=== PATIENT | male | born 1945 | race Caucasian/White ===

== ENCOUNTER 2020-03-27 07:29 | Day surgery (SDC) | payer MEDICARE, OTHER, SELFPAY ==
--- NOTE | 2020-03-24 13:43 | HO.ANESPROP2 ---
HPI - Anesthesia Eval Consult details Narrative: 74yo M for Cardioversion: a flutter PMFSH Past Medical History Medical History (Updated 03/27/20 @ 10:22 by Mark Knight MD) Ascending aorta dilatation Atrial flutter by electrocardiogram BPH (benign prostatic hyperplasia) GERD (gastroesophageal reflux disease) HTN (hypertension) Nasal polyps TIA (transient ischemic attack) Surgical History Surgical History H/O colonoscopy H/O umbilical hernia repair S/P inguinal hernia repair Social History Social History Smoking Status: Never smoker Use of substances other than those prescribed or required for medical reasons: No Advance Directives: No Advance Directives Information Provided: Yes Meds Allergies Allergy/AdvReac Type Severity Reaction Status Date / Time PCN Allergy Unknown rash Uncoded 11/30/19 00:00 Home Medications Medication Instructions Recorded Confirmed Type Eliquis 1 tab PO BID 03/27/20 03/27/20 History atorvastatin 1 tab PO DAILY 03/27/20 03/27/20 History lisinopril 1 tab PO DAILY 03/27/20 03/27/20 History omeprazole 1 cap PO DAILY 03/27/20 03/27/20 History tamsulosin 2 cap PO DAILY 03/27/20 03/27/20 History Exam Exam Date and Time: March 24, 2020 1343 Pertinent Lab Results Pertinent Lab Results: Laboratory Tests 10/18/19 01/04/20 10:44 10:17 WBC 5.5 Hgb 15.2 Hct 44.6 Plt Count 173 Sodium 142 Potassium 4.4 Chloride 109 H BUN 14 Creatinine 0.81 Narrative Narrative: EKG aflutter, variable block, 73/min ECHO: nml LVEF 55-60%, no signif valve path, mild dilation of asc aorta @ 4.0cm, Holter: aflutter with avg rate of 70/min MIBI: no definitive evidence of ischemia or infarction CTA brain: 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
[2020-03-27] VITALS (7 sets, daily range): BP systolic 104–137; BP diastolic 66–94; PULSE 46–69; RESP 16–18; TEMP 36.1–36.5; O2SAT 96–99; BMI 32.1
--- NOTE | 2020-03-27 | ECG_ITS ---
Test Reason : POST CARDIOVERSION Blood Pressure : / mmHG Vent. Rate : 050 BPM Atrial Rate : 050 BPM P-R Int : 200 ms QRS Dur : 098 ms QT Int : 444 ms P-R-T Axes : 033 003 020 degrees QTc Int : 404 ms Sinus bradycardia Possible Left atrial enlargement Borderline ECG When compared with ECG of 29-JUN-2019 12:48, Sinus bradycardia has replaced aflutter Heart rate has decreased Referred By: Mark Knight Electronically Signed By:JAUN BARNES MD
--- NOTE | 2020-03-27 08:19 | MHC.SHP ---
Pre-Procedural Eval Section A Changes since office visit: No Cold of Flu in the past 2 weeks, No New Medical Problems, No Changes in Medication and No Patient answered all questions The History & Physical has been completed within 30 days and I have reviewed it.: Yes Section B Chief Complaint: TYPICAL FLUTTER Allergies: Allergies Allergy/AdvReac Type Severity Reaction Status Date / Time PCN Allergy Unknown rash Uncoded 11/30/19 00:00 Plan Diagnosis/Plan: Unchanged Patient has been examined and remains a candidate for the planned procedure
[2020-03-27] MEDS: Lactated Ringers 1,000 ML 100 ML IVCONT (08:31)
--- NOTE | 2020-03-27 08:53 | MHC.SHP ---
Pre-Procedural Eval Section A The patient is an INPATIENT: No Changes since office visit: No Cold of Flu in the past 2 weeks, No New Medical Problems, No Changes in Medication and No Patient answered all questions The History & Physical has been completed within 30 days and I have reviewed it.: Yes Section B Chief Complaint: TYPICAL FLUTTER Allergies: Allergies Allergy/AdvReac Type Severity Reaction Status Date / Time PCN Allergy Unknown rash Uncoded 11/30/19 00:00 Plan Patient has been examined and remains a candidate for the planned procedure
[2020-03-27] MEDS: Apixaban 5 MG TABLET PO (09:11)
--- NOTE | 2020-03-27 09:18 | P.CONAN_ITS ---
[facility] Past Medical History Medical History Ascending aorta dilatation Atrial flutter BPH (benign prostatic hyperplasia) GERD (gastroesophageal reflux disease) HTN (hypertension) Nasal polyps TIA (transient ischemic attack) Surgical History Surgical History H/O colonoscopy H/O umbilical hernia repair S/P inguinal hernia repair Social History Social History Smoking Status: Never smoker Use of substances other than those prescribed or required for medical reasons: No Advance Directives: No Advance Directives Information Provided: Yes Meds Allergies Allergy/AdvReac Type Severity Reaction Status Date / Time PCN Allergy Unknown rash Uncoded 11/30/19 00:00 Home Medications Medication Instructions Recorded Confirmed Type apixaban [Eliquis] 1 tab PO BID 03/27/20 03/27/20 History atorvastatin 1 tab PO DAILY 03/27/20 03/27/20 History lisinopril 1 tab PO DAILY 03/27/20 03/27/20 History metoprolol succinate 1 tab PO DAILY 03/27/20 03/27/20 History omeprazole 1 cap PO DAILY 03/27/20 03/27/20 History tamsulosin 2 cap PO DAILY 03/27/20 03/27/20 History Exam Exam Date and Time: March 27, 2020917 Height,Weight and Vital Signs: Height 5 ft 11 in Weight 104.326 kg Last Vital Signs Temp 97.7 F 03/27/20 08:02 Pulse 61 03/27/20 08:02 Resp 18 03/27/20 08:02 BP 137/94 H 03/27/20 08:02 Pulse Ox 98 03/27/20 08:02 Airway Mallampati Class: II TM Dist: >3cm Neck ROM: Full Heart: RarR Lungs: CTA
--- NOTE | 2020-03-27 09:44 | HO.CARDIVERS ---
Cardioversion Procedure Note Cardioversion Date of Procedure: 03/27/2020 Ordering Provider: Dr. Knight Performing Provider: Dr. Knight Indication for Procedure: Preoperative diagnose-atrial flutter; postoperative diagnosis - sinus rhythm. Performed with Transesophageal Echo: No History: Atrial flutter and shortness of breath Consent: Verbal and Written consent was obtained from the patient before starting. The patient was made aware of the risk of stroke, cardiac arrest, Procedure: After consent obtained, defib pads were attached and the patient was sedated by the anesthesia team. Once adequate sedation achieved, 150 joules of synchronized shock was administered. The rhythm converted from atrial flutter to sinus rhythm. He was bradycardic in the 40s to low 50s. Complications: None Impression: Successful cardioversion from atrial flutter to sinus bradycardia. Recommendations: Hold Toprol XL due to bradycardia. We will check an EKG tomorrow in office. Continue other medications unchanged.
== END 2020-03-27 11:18 | disposition home or self-care (01) ==
PROVIDERS: PCP Internal Medicine; Visit Provider Internal Medicine
PROC: 5A2204Z Restoration of Cardiac Rhythm, Single (ICD-10-PCS; principal; 2020-03-27 09:00)
DX: I48.3 Typical atrial flutter (principal); Z79.01 Long term (current) use of anticoagulants; I10 Essential (primary) hypertension; Z79.899 Other long term (current) drug therapy; Z86.73 Personal history of transient ischemic attack (TIA), and cerebral infarction without residual deficits; Z88.0 Allergy status to penicillin
CPT/HCPCS: 92960; 93005

== ENCOUNTER → 2020-03-28 08:59 | Outpatient (BNVA) | payer MEDICARE, OTHER, SELFPAY | PROVIDERS: PCP Internal Medicine; Visit Provider Internal Medicine | DX: I48.92 Unspecified atrial flutter (principal); G47.33 Obstructive sleep apnea (adult) (pediatric) | CPT/HCPCS: 93005 ==

== ENCOUNTER → 2020-03-29 13:13 | Outpatient (REF) | payer MEDICARE, OTHER, SELFPAY ==
--- NOTE | 2020-03-30 13:47 | ECG_ITS ---
Hook-up date: 2020-03-28 09:16:00 Duration: 27:46:00 Test Indications: UNSPECIFIED ATRIAL FIBRILLATION Medications: 56193 QRS complexes 64 Ventricular ectopics which represent <1 % of total QRS comp. 1615 Supraventricular ectopics which represent 2 % of total QRS comp. * Paced QRS complexs which represent % of total QRS comp. VENTRICULAR ECTOPY 64 Isolated 0 Bigeminal Cycles 0 Couplets 0 Runs 0 Beats in Runs * Beats LONGEST at * BPM at :: -- * Beats FASTEST at * BPM at :: -- SUPRAVENTRICULAR ECTOPY 1516 Isolated 26 Couplets 7 Runs 47 Beats in Runs 15 Beats LONGEST at 149 BPM at 11:13:14 2020-03-28 15 Beats FASTEST at 149 BPM at 11:13:14 2020-03-28 HEART RATES 36 MIN at 23:23:12 2020-03-28 47 AVG 93 MAX at 09:20:19 2020-03-28 LONGEST RR 2.0640 secs at 23:08:06 2020-03-28 S-T LEVELS Channel 1 - 128 mm at 09:16:00 2020-03-28 - 128 mm at 09:16:00 2020-03-28 Channel 2 - 128 mm at 09:16:00 2020-03-28 - 128 mm at 09:16:00 2020-03-28 Channel 3 - 128 mm at 02:83:51 -- - 128 mm at 02:83:51 Basic rhythm Normal sinus rhythm No long pauses. Frequent Sinus bradycardia , 80% of time HR < 60 bpm, lowest HR of 32 bpm Frequent Premature atrial complexes No sustained Atrial fibrillation No diary submitted Referred By: Mark Knight Overread By: SILVINA SHIN MD [facility]
== END ==
LOC: HO.CARD 13:13
PROVIDERS: Visit Provider Internal Medicine
DX: I48.92 Unspecified atrial flutter (principal)
CPT/HCPCS: 93226

== ENCOUNTER 2020-04-04 07:52 | Outpatient (REF) | payer MEDICARE, OTHER, SELFPAY ==
[2020-04-04 11:18] LABS: PSA,Total (Free>4and<10) 4.71 ng/mL (0.00-4.00)
[2020-04-05 13:36] LABS: Percent Free Prostate Spec Ag 35 % (calc) (>25)
[2020-04-06 09:37] LABS: Free Prostate Spec Ag 2.2 ng/mL; Prostate Specific Ag Total 6.3 ng/mL (< OR = 4.0)
== END 2020-04-04 07:53 | disposition home or self-care (01) ==
LOC: HO.10HDL 07:52
PROVIDERS: Visit Provider Urology
DX: N40.1 Benign prostatic hyperplasia with lower urinary tract symptoms (principal); R97.20 Elevated prostate specific antigen [PSA]; Z12.5 Encounter for screening for malignant neoplasm of prostate
CPT/HCPCS: 84153

== ENCOUNTER → 2020-04-11 14:04 | Outpatient (BNVA) | payer MEDICARE, OTHER, SELFPAY | PROVIDERS: PCP Internal Medicine; Referring Provider Internal Medicine; Visit Provider Internal Medicine | DX: I48.92 Unspecified atrial flutter (principal); R00.1 Bradycardia, unspecified; Z86.73 Personal history of transient ischemic attack (TIA), and cerebral infarction without residual deficits; Z98.890 Other specified postprocedural states | CPT/HCPCS: 93005; 99212 ==

== ENCOUNTER → 2020-05-11 20:31 | Outpatient (REF) | payer MEDICARE, OTHER, SELFPAY | LOC: HO.SL 20:31 | PROVIDERS: PCP Internal Medicine; Visit Provider Internal Medicine | DX: G47.33 Obstructive sleep apnea (adult) (pediatric) (principal); I48.92 Unspecified atrial flutter | CPT/HCPCS: 95810 ==

== ENCOUNTER → 2020-05-23 10:59 | Outpatient (BNVA) | payer MEDICARE, OTHER, SELFPAY | PROVIDERS: PCP Internal Medicine; Referring Provider Internal Medicine; Visit Provider Nurse Practitioner Family | DX: Z13.89 Encounter for screening for other disorder (principal) | CPT/HCPCS: Q3014 ==

== ENCOUNTER → 2020-05-24 08:38 | Outpatient (BNVA) | payer MEDICARE, OTHER, SELFPAY | PROVIDERS: PCP Internal Medicine; Referring Provider Internal Medicine; Visit Provider Urology | DX: Z13.89 Encounter for screening for other disorder (principal) | CPT/HCPCS: Q3014 ==

== ENCOUNTER → 2020-07-18 08:24 | Outpatient (BNVA) | payer MEDICARE, OTHER, SELFPAY | PROVIDERS: PCP Internal Medicine; Visit Provider Internal Medicine | DX: I48.92 Unspecified atrial flutter (principal); R00.1 Bradycardia, unspecified; G45.9 Transient cerebral ischemic attack, unspecified; G47.33 Obstructive sleep apnea (adult) (pediatric) | CPT/HCPCS: 99212 ==

== ENCOUNTER 2020-11-22 07:51 | Outpatient (REF) | payer MEDICARE, OTHER, SELFPAY ==
[2020-11-22 10:12] LABS: MANUAL DIFF FLAG NO
[2020-11-22 10:21] LABS: Basophils Percent Auto 0.6 % (0-2); Eosinophils Absolute Auto 0.2 X10*3/uL (0.0-0.4); Eosinophils Percent Auto 4.1 % (0-4); Hematocrit 44.3 % (42-52); Hemoglobin 14.2 g/dl (14.0-18.0); Imm Gran Abs Auto 0.02 X10*3/uL (0.00-0.03); Imm Gran Pct Auto 0.4 % (0.0-0.4); Lymphocytes Absolute Auto 1.5 X10*3/uL (1.2-4.9); Lymphocytes Percent Auto 28.9 % (20-40); Mean Corpuscular HGB Conc 32.1 g/dl (31.0-36.0); Mean Corpuscular Hemoglobin 30.7 pg (27.0-33.0); Mean Corpuscular Volume 95.9 fL (80-98); Mean Platelet Volume 10.7 fL (9.4-12.4); Monocytes Absolute Auto 0.7 X10*3/uL (0.1-1.2); Monocytes Percent Auto 12.8 % (2-11); Neutrophils Absolute Auto 2.8 X10*3/uL (2.0-8.3); Neutrophils Percent Auto 53.2 % (45-73); Platelet Count 192 X10*3/uL (160-400); Red Blood Count 4.62 X10*6/uL (4.60-5.80); Red Cell Distribution Width 13.2 % (11.0-16.0); White Blood Count 5.3 X10*3/uL (4.8-10.8)
[2020-11-22 10:52] LABS: Alanine Aminotransferase 11 U/L (0-40); Albumin Level 4.1 g/dL (3.5-5.0); Alkaline Phosphatase 104 U/L (39-117); Anion Gap 13 (12-20); Aspartate Amino Transferase 16 U/L (5-37); Blood Urea Nitrogen 20 mg/dL (9-16); Calcium 9.6 mg/dL (8.4-10.2); Carbon Dioxide 23 mmol/L (22-29); Chloride 108 mmol/L (96-108); Cholesterol 117 mg/dL; Estimated Glomerular Filt Rate > 60; Glucose Fasting 103 mg/dL (60-99); HDL Cholesterol 42 mg/dL; LDL Cholesterol Calculated 58 mg/dl; Potassium 4.6 mmol/L (3.3-5.1); Sodium 139 mmol/L (135-145); Total Protein 6.8 g/dL (6.5-8.0); Triglycerides 86 mg/dL
== END 2020-11-22 07:52 | disposition home or self-care (01) ==
LOC: HO.10HDL 07:51
PROVIDERS: Visit Provider Internal Medicine
DX: I10 Essential (primary) hypertension (principal); E78.00 Pure hypercholesterolemia, unspecified; K21.9 Gastro-esophageal reflux disease without esophagitis
CPT/HCPCS: 36415; 80053; 80061; 85025

== ENCOUNTER → 2021-01-03 08:43 | Outpatient (REF) | payer MEDICARE, OTHER, SELFPAY ==
--- NOTE | 2021-01-03 11:53 | ECG_ITS ---
Hook-up date: 2021-01-03 09:01:00 Duration: 47:59:00 Test Indications: UNSPEC. ATRIAL FLUTTER Medications: 637880 QRS complexes 320 Ventricular ectopics which represent <1 % of total QRS comp. 33 Supraventricular ectopics which represent <1 % of total QRS comp. * Paced QRS complexs which represent % of total QRS comp. VENTRICULAR ECTOPY 311 Isolated 0 Bigeminal Cycles 3 Couplets 1 Runs 3 Beats in Runs 3 Beats LONGEST at 51 BPM at 07:49:24 2021-01-05 3 Beats FASTEST at 51 BPM at 07:49:24 2021-01-05 SUPRAVENTRICULAR ECTOPY 19 Isolated 2 Couplets 2 Runs 10 Beats in Runs 5 Beats LONGEST at 84 BPM at 02:27:04 2021-01-04 5 Beats FASTEST at 110 BPM at 03:33:22 2021-01-04 HEART RATES 31 MIN at 23:51:30 2021-01-03 47 AVG 102 MAX at 14:59:31 2021-01-03 LONGEST RR 2.0640 secs at 05:22:41 2021-01-04 S-T LEVELS Channel 1 - 128 mm at 09:01:00 2021-01-03 - 128 mm at 09:01:00 2021-01-03 Channel 2 - 128 mm at 09:01:00 2021-01-03 - 128 mm at 09:01:00 2021-01-03 Channel 3 - 128 mm at 02:82:01 -- - 128 mm at 02:82:01 Underlying rhythm is sinus; Average ventricular rate 47/min; range 31-102/min; Rare Premature ventricular complexes ; Rare Premature atrial complexes ; No sustained arrhythmias; Patient diary not available. Referred By: Akira Dhillon Overread By: AKIRA DHILLON
== END ==
LOC: HO.CARD 08:43
PROVIDERS: PCP Internal Medicine; Referring Provider Internal Medicine; Visit Provider Internal Medicine
DX: I48.92 Unspecified atrial flutter (principal)
CPT/HCPCS: 93226

== ENCOUNTER 2021-01-10 11:52 | Outpatient (REF) | payer MEDICARE, OTHER, SELFPAY ==
[2021-01-10 13:10] LABS: PSA,Total (Free>4and<10) 5.37 ng/mL (0.00-4.00)
[2021-01-12 11:36] LABS: Free Prostate Spec Ag 2.2 ng/mL; Percent Free Prostate Spec Ag 31 % (calc) (>25); Prostate Specific Ag Total 7.1 ng/mL (< OR = 4.0)
== END 2021-01-10 11:53 | disposition home or self-care (01) ==
LOC: HO.LAB 11:52
PROVIDERS: PCP Internal Medicine; Visit Provider Urology
DX: R97.20 Elevated prostate specific antigen [PSA] (principal); N40.1 Benign prostatic hyperplasia with lower urinary tract symptoms; N13.8 Other obstructive and reflux uropathy; Z12.5 Encounter for screening for malignant neoplasm of prostate
CPT/HCPCS: 36415; 84153; 84154

== ENCOUNTER → 2021-01-22 08:30 | Outpatient (BNVA) | payer MEDICARE, OTHER, SELFPAY | PROVIDERS: PCP Internal Medicine; Referring Provider Internal Medicine; Visit Provider Internal Medicine | DX: I48.92 Unspecified atrial flutter (principal); R00.1 Bradycardia, unspecified; G47.33 Obstructive sleep apnea (adult) (pediatric); Z86.73 Personal history of transient ischemic attack (TIA), and cerebral infarction without residual deficits; Z79.01 Long term (current) use of anticoagulants | CPT/HCPCS: 99212 ==

== ENCOUNTER → 2021-01-24 13:51 | Outpatient (BNVA) | payer MEDICARE, OTHER, SELFPAY | PROVIDERS: Visit Provider Urology | DX: Z13.89 Encounter for screening for other disorder (principal) | CPT/HCPCS: Q3014 ==

== ENCOUNTER 2021-02-05 11:39 | Emergency (ER) | payer MEDICARE, OTHER, SELFPAY ==
--- NOTE | ~2021-02-05 | CT_ITS ---
EXAMINATION: CT ABDOMEN AND PELVIS WITHOUT CONTRAST CLINICAL INFORMATION: Retention. Flank pain. COMPARISON: None TECHNIQUE: Multidetector volumetric imaging was performed from the superior aspect of the liver through the pubic symphysis. Sagittal and coronal reformatted images were obtained on the technologist's workstation. This CT examination was performed using dose optimization techniques as appropriate, variously including the following: *Automated exposure control *Adjustment of mA and/or kV according to patient size (this includes techniques or standardized protocols for targeted exams where dose is matched to indication/reason for exam; i.e. extremities or head) *Use of iterative reconstruction technique DLP: 795 mGy-cm FINDINGS: LUNG BASES: The visualized lung bases are unremarkable. LIVER, GALLBLADDER, AND BILIARY TREE: The liver is normal in size, shape, and attenuation. No focal hepatic lesion or biliary ductal dilatation is present. The gallbladder is unremarkable with no evidence of radiopaque gallstones, gallbladder wall thickening, or obvious pericholecystic inflammatory changes. PANCREAS: Unremarkable. SPLEEN: Unremarkable. ADRENAL GLANDS: Unremarkable. KIDNEYS AND URETERS: The kidneys are normal in size, shape, and attenuation. No hydronephrosis, hydroureter, or calculi seen. No perinephric stranding. BLADDER: The prostate gland is enlarged and protrudes into the base of the bladder. There is a Fisher catheter in the bladder. The bladder is empty. GASTROINTESTINAL TRACT: There is diverticulosis of the colon. Small and large bowel is otherwise unremarkable. The appendix is unremarkable. ABDOMINAL WALL: There is evidence of previous umbilical hernia repair with mesh. May be a small right inguinal hernia containing fat. LYMPH NODES: Normal. VASCULAR: There is evidence of atherosclerotic disease. PELVIC VISCERA: Prostate gland is enlarged and protrudes into the base of the bladder. Prostate gland measures 7 cm in AP and transverse dimension. OSSEOUS STRUCTURES: There are degenerative changes of the spine. CT/CT abdomen pelvis wo con IMPRESSION: No renal stone or hydronephrosis. Enlarged prostate gland that protrudes into the base of the bladder. Fisher catheter in the bladder. The bladder is empty.
[2021-02-05 11:56] VITALS: BP 197/122; PULSE 82; RESP 24; TEMP 36.8; O2SAT 98; BMI 31.5
--- NOTE | 2021-02-05 12:30 | ED.MALEGU ---
HPI - Male Genitourinary General Chief complaint: Urogenital-Male Stated complaint: URINATING ISSUES Time Seen by Provider: 02/05/21 12:27 Source: patient Mode of arrival: ambulatory Limitations: no limitations History of Present Illness Complaint: other (urinary retention) Onset (ago): day(s) (last night) Duration: constant Location: abdomen (suprapubic) Severity: moderate Quality: aching Relieving factors: none Exacerbating factors: none Context: other (hx of BPD unable to void has never had a catheter before) Associated symptoms: Reports other (flank pain) Related Data Home Medications Medication Instructions Recorded Confirmed apixaban 5 mg tablet (Eliquis) 5 mg PO BID 04/11/20 01/24/21 atorvastatin 20 mg tablet 20 mg PO DAILY 04/11/20 01/24/21 lisinopril 20 mg tablet 20 mg PO DAILY 04/11/20 01/24/21 omeprazole 20 mg capsule,delayed 20 mg PO DAILY 04/11/20 01/24/21 release tamsulosin 0.4 mg capsule 0.8 mg PO DAILY 04/11/20 01/24/21 Previous Rx's Medication Instructions Recorded finasteride 5 mg tablet 5 mg PO DAILY 90 Days #90 tab 01/24/21 nitrofurantoin 100 mg PO BID 3 Days #6 cap 02/05/21 monohydrate/macrocrystals 100 mg capsule (Macrobid) Allergies Allergy/AdvReac Type Severity Reaction Status Date / Time Penicillins Allergy Mild RASH Verified 01/24/21 13:52 Review of Systems Review of Systems: Constitutional : No Weight loss, No Fever, No Chills ENT/Mouth : No sore throat, No Rhinorrhea Eyes: No Swelling, No Redness Cardiovascular : No Chest Pain, No SOB, NoEdema Respiratory : No Cough, No Sputum, No Wheezing Gastrointestinal : no Nausea, no Vomiting, no Diarrhea, positive abdominal Pain, No Hematochezia, No Melena Genitourinary : No Dysuria, No Urinary Frequency, No Hematuria, No Urgency, pos retention Musculoskeletal : No joint pain, No Myalgias, No Joint Swelling Skin : No Skin Lesions, No rash Neuro : No Weakness, No Numbness, No Dizziness, No Headache Psych : No Anxiety/Panic, No Depression Heme/Lymph: No Bruising, No Lymphadenopathy Endocrine : No Polyuria, No Polydipsia All other systems reviewed and are negative. [facility] Past Medical History Attestation statement: The following information was validated with the patient. Medical History Ascending aorta dilatation BPH (benign prostatic hyperplasia) BPH with obstruction/lower urinary tract symptoms Elevated PSA GERD (gastroesophageal reflux disease) HTN (hypertension) Nasal polyps Paroxysmal atrial flutter Sinus bradycardia TIA (transient ischemic attack) Surgical History H/O colonoscopy H/O umbilical hernia repair S/P inguinal hernia repair Family History Family History Father Cardiovascular disease Mother No problems noted. Social History Social History Alcohol intake: never Patient Tobacco Use Status: Never used Tobacco Use of substances other than those prescribed or required for medical reasons: No Advance Directives: Yes Advance Directives Information Provided: Yes Advance Directives on File: No Physical Exam Vital Signs: Vital Signs: Last Vital Signs Temp 98.3 F 02/05/21 12:38 Pulse 49 L 02/05/21 14:33 Resp 16 02/05/21 14:33 BP 136/68 02/05/21 14:33 Pulse Ox 96 02/05/21 14:33 Body Mass Index 31.5 Appearance: Alert. Oriented X3. No acute distress. PATIENT HAD A CATHETER PLACED BY RN ON IMMEDIATE ARRIVAL TO THE ED SO HE DRASTICALLY IMPROVED Eyes: Pupils equal, round and reactive to light. ENT: Pharynx normal. Neck: Normal inspection. Neck supple. CVS: Normal heart rate and rhythm. Pulses normal. Respiratory: No respiratory distress. Breath sounds normal. Abdomen: Soft and nontender. Back: mild L CVA ttp Skin: Skin warm and dry. Normal skin color. Normal skin turgor. Extremities: No lower extremity edema. No calf ttp Neuro: Oriented X 3. No motor deficit. No sensory deficit. Course Course Course Narrative: labs stable at this time can be DC with carol carson macrobid MDM - Male Genitourinary MDM Narrative Medical decision making narrative: 75 yo male with MARÍA, BPH, aflutter on eliquis here with retention since last night - at this time carson, UA, labs, CT scan for mass/renal colic. Dispo per results and findings. Lab Data Result diagrams: 02/05/21 14:28 02/05/21 14:28 Labs: Lab Results 02/05/21 02/05/21 02/05/21 Range/Units 14:28 14:28 14:28 WBC 7.4 (4.8-10.8) X10*3/uL RBC 4.28 L (4.60-5.80) X10*6/uL Hgb 13.5 L (14.0-18.0) g/dl Hct 40.1 L (42-52) % MCV 93.7 (80-98) fL MCH 31.5 (27.0-33.0) pg MCHC 33.7 (31.0-36.0) g/dl RDW 12.9 (11.0-16.0) % Plt Count 145 L (160-400) X10*3/uL MPV 10.2 (9.4-12.4) fL Immature Gran % (Auto) 0.4 (0.0-0.4) % Neut % (Auto) 85.7 H (45-73) % Lymph % (Auto) 6.6 L (20-40) % Rock % (Auto) 7.1 (2-11) % Eos % (Auto) 0.1 (0-4) % Baso % (Auto) 0.1 (0-2) % Lymph # (Auto) 0.5 L (1.2-4.9) X10*3/uL Rock # (Auto) 0.5 (0.1-1.2) X10*3/uL Eos # (Auto) 0.0 (0.0-0.4) X10*3/uL Baso # (Auto) 0.0 (0.0-0.2) X10*3/uL Abs Immat Gran (auto) 0.03 (0.00-0.03) X10*3/uL Absolute Neuts (auto) 6.3 (2.0-8.3) X10*3/uL Absolute Nucleated RBC 0.000 (0.0-0.012) X10*3/uL Nucleated RBC % (auto) 0.0 (0.0-0.2) /100WBC Sodium 143 (135-145) mmol/L Potassium 3.8 (3.3-5.1) mmol/L Chloride 113 H (96-108) mmol/L Carbon Dioxide 22 (22-29) mmol/L Anion Gap 12 (12-20) BUN 13 (9-16) mg/dL Creatinine 0.74 (0.5-1.4) mg/dL Estim Creat Clear Calc 108.3 Estimated GFR > 60 Random Glucose 101 (60-115) mg/dL Calcium 9.4 (8.4-10.2) mg/dL Magnesium 1.9 (1.6-2.6) mg/dL Total Bilirubin 0.7 (0.0-1.0) mg/dL Direct Bilirubin 0.3 (0.0-0.5) mg/dL AST 17 (5-37) U/L ALT 14 (0-40) U/L Alkaline Phosphatase 98 (39-117) U/L Total Protein 6.5 (6.5-8.0) g/dL Albumin 3.9 (3.5-5.0) g/dL Urine Color YELLOW Urine Appearance HAZY Urine pH 6.0 (5.0-8.0) Ur Specific [place] 1.020 (1.005-1.025) Urine Protein NEG (NEG-TRACE) MG/DL Urine Glucose (UA) NEG (NEG) MG/DL Urine Ketones NEG (NEG) MG/DL Urine Blood 3+ H (NEG) Urine Nitrite NEG (NEG) Ur Leukocyte Esterase NEG (NEG) Urine RBC 50-75 H (0) /HPF Urine WBC 0-2 (0-4) /HPF Ur Squamous Epith Cells NONE /LPF Urine Bacteria NONE /LPF Discharge Plan Discharge Clinical Impression: Acute urinary retention, BPH with obstruction/lower urinary tract symptoms Patient Disposition: Home, Self-Care Instructions: Enlarged Prostate (BPH) (ED), Carson Catheter Placement and Care (ED) Additional Instructions: return to ED for any worsening symptoms or concerns call Dr. Martinez tomorrow regarding catheter Prescriptions: New nitrofurantoin monohyd/m-cryst [Macrobid] 100 mg capsule 100 mg PO BID 3 Days Qty: 6 RF: 0 No Action tamsulosin 0.4 mg capsule 0.8 mg PO DAILY RF: 0 omeprazole 20 mg capsule,delayed release(DR/EC) 20 mg PO DAILY RF: 0 lisinopril 20 mg tablet 20 mg PO DAILY RF: 0 atorvastatin 20 mg tablet 20 mg PO DAILY RF: 0 Eliquis 5 mg tablet 5 mg PO BID RF: 0 finasteride 5 mg tablet 5 mg PO DAILY 90 Days Qty: 90 RF: 1 Interventions: ED Discharge Assessment Last Done: 02/05/21 15:21 Discharge Date/Time: 02/05/21 15:30
--- NOTE | 2021-02-05 12:36 | PC.NURSE ---
pt from triage with severe sup[rapubic pain. HE states he has been unable to void urine today except for very small amounts. Bladder scanned pt for >800 ml urine and inserted 16 fr carson with bag to gravity. Pt states pain better. He awaits MD dias
[2021-02-05 12:38] VITALS: BP 197/122; PULSE 82; RESP 24; TEMP 36.8; O2SAT 98
[2021-02-05 14:33] VITALS: BP 136/68; PULSE 49; RESP 16; O2SAT 96
[2021-02-05 14:35] LABS: MANUAL DIFF FLAG NO
[2021-02-05 14:37] LABS: Basophils Percent Auto 0.1 % (0-2); Eosinophils Percent Auto 0.1 % (0-4); Hematocrit 40.1 % (42-52); Hemoglobin 13.5 g/dl (14.0-18.0); Imm Gran Abs Auto 0.03 X10*3/uL (0.00-0.03); Imm Gran Pct Auto 0.4 % (0.0-0.4); Lymphocytes Absolute Auto 0.5 X10*3/uL (1.2-4.9); Lymphocytes Percent Auto 6.6 % (20-40); Mean Corpuscular HGB Conc 33.7 g/dl (31.0-36.0); Mean Corpuscular Hemoglobin 31.5 pg (27.0-33.0); Mean Corpuscular Volume 93.7 fL (80-98); Mean Platelet Volume 10.2 fL (9.4-12.4); Monocytes Absolute Auto 0.5 X10*3/uL (0.1-1.2); Monocytes Percent Auto 7.1 % (2-11); Neutrophils Absolute Auto 6.3 X10*3/uL (2.0-8.3); Neutrophils Percent Auto 85.7 % (45-73); Platelet Count 145 X10*3/uL (160-400); Red Blood Count 4.28 X10*6/uL (4.60-5.80); Red Cell Distribution Width 12.9 % (11.0-16.0); White Blood Count 7.4 X10*3/uL (4.8-10.8)
[2021-02-05 14:40] LABS: Glucose Urine UA NEG (NEG); Leukocyte Esterase Urine NEG (NEG); Nitrite Urine NEG (NEG); UACC Culture Trigger NO; Urine Blood 3+ (NEG); Urine Ketones NEG (NEG); Urine Protein NEG (NEG-TRACE)
[2021-02-05 14:41] LABS: Appearance Urine HAZY; Color Urine YELLOW
[2021-02-05 14:48] LABS: RBC Urine 50-75 /HPF (0); WBC Urine 0-2 /HPF (0-4)
[2021-02-05 14:56] LABS: Alanine Aminotransferase 14 U/L (0-40); Albumin Level 3.9 g/dL (3.5-5.0); Alkaline Phosphatase 98 U/L (39-117); Anion Gap 12 (12-20); Aspartate Amino Transferase 17 U/L (5-37); Bilirubin Direct 0.3 mg/dL (0.0-0.5); Bilirubin Total 0.7 mg/dL (0.0-1.0); Blood Urea Nitrogen 13 mg/dL (9-16); Calcium 9.4 mg/dL (8.4-10.2); Carbon Dioxide 22 mmol/L (22-29); Chloride 113 mmol/L (96-108); Creatinine Clr Calc Pharmacy 108.3; Estimated Glomerular Filt Rate > 60; Glucose Random 101 mg/dL (60-115); Magnesium 1.9 mg/dL (1.6-2.6); Potassium 3.8 mmol/L (3.3-5.1); Sodium 143 mmol/L (135-145); Total Protein 6.5 g/dL (6.5-8.0)
[2021-02-05] MEDS: Nitrofurantoin Monohyd/M-Cryst 100 MG CAPSULE PO (15:19)
== END 2021-02-05 15:30 | disposition home or self-care (01) ==
PROVIDERS: Emergency Provider Emergency Medicine; PCP Internal Medicine
DX: N40.1 Benign prostatic hyperplasia with lower urinary tract symptoms (principal); R33.8 Other retention of urine; I10 Essential (primary) hypertension; I48.0 Paroxysmal atrial fibrillation
CPT/HCPCS: 36415; 51702; 74176; 80048; 80076; 81001; 83735; 85025; 99284

== ENCOUNTER 2021-02-05 21:07 | Emergency (ER) | payer MEDICARE, OTHER, SELFPAY ==
[2021-02-05 21:08] VITALS: BP 163/65; PULSE 67; RESP 16; TEMP 36.8; O2SAT 96; BMI 31.5
--- NOTE | 2021-02-05 22:36 | ED.MALEGU ---
HPI - Male Genitourinary General Chief complaint: Urogenital-Male Stated complaint: blood in urine Time Seen by Provider: 02/05/21 22:21 Source: patient Mode of arrival: ambulatory Limitations: no limitations History of Present Illness HPI Narrative: 75 y/o male with history of paroxysmal afib on Eliquis, MARÍA, BPH recently started on finasteride, HTN, GERD, TIA who presents for evaluation of new onset hematuria. He was seen in the ED this afternoon for urinary retention and a Carson was placed. He was discharged home with plan to f/u with Dr. Martinez. At home this evening he changed his leg bag at 8:30 of clear urine. He went to use the bathroom and thinks when he stood up he may have pulled on the Carson catheter. He looked down and saw dark red urine in the urine bag. He denies any pain. No fevers, lightheadedness, dizziness or chest pain. Denies visualized clots. He took his Eliquis already tonight. MD Complaint: other (hematuria) Onset (ago): hour(s) Duration: constant Severity: moderate Relieving factors: none Exacerbating factors: none Associated symptoms: Reports denies other symptoms Related Data Home Medications Medication Instructions Recorded Confirmed apixaban 5 mg tablet (Eliquis) 5 mg PO BID 04/11/20 01/24/21 atorvastatin 20 mg tablet 20 mg PO DAILY 04/11/20 01/24/21 lisinopril 20 mg tablet 20 mg PO DAILY 04/11/20 01/24/21 omeprazole 20 mg capsule,delayed 20 mg PO DAILY 04/11/20 01/24/21 release tamsulosin 0.4 mg capsule 0.8 mg PO DAILY 04/11/20 01/24/21 Previous Rx's Medication Instructions Recorded finasteride 5 mg tablet 5 mg PO DAILY 90 Days #90 tab 01/24/21 nitrofurantoin 100 mg PO BID 3 Days #6 cap 02/05/21 monohydrate/macrocrystals 100 mg capsule (Macrobid) Allergies Allergy/AdvReac Type Severity Reaction Status Date / Time Penicillins Allergy Mild RASH Verified 02/05/21 21:14 Review of Systems Review of Systems: Constitutional: No Fever, No Chills Cardiovascular: No Chest Pain, No SOB Respiratory: No Cough, No Sputum Gastrointestinal: No Nausea, No Vomiting, No Diarrhea, No abdominal Pain Genitourinary: No Dysuria, No Urinary Frequency, + Hematuria Musculoskeletal: No joint pain, No Myalgias Skin: No Skin Lesions, No rash Neuro: No Weakness, No Numbness, No Dizziness, No Headache Heme/Lymph: No Bruising, No Lymphadenopathy Endocrine: No Polyuria, No Polydipsia [facility] Past Medical History Medical History Ascending aorta dilatation BPH (benign prostatic hyperplasia) BPH with obstruction/lower urinary tract symptoms Elevated PSA GERD (gastroesophageal reflux disease) HTN (hypertension) Nasal polyps Paroxysmal atrial flutter Sinus bradycardia TIA (transient ischemic attack) Surgical History H/O colonoscopy H/O umbilical hernia repair S/P inguinal hernia repair Family History Family History Father Cardiovascular disease Mother No problems noted. Social History Social History Alcohol intake: never Patient Tobacco Use Status: Never used Tobacco Advance Directives: No Advance Directives Information Provided: No Physical Exam Vital Signs: Vital Signs: Last Vital Signs Temp 98.3 F 02/05/21 21:08 Pulse 52 02/05/21 23:25 Resp 16 02/05/21 23:25 BP 149/72 H 02/05/21 23:25 Pulse Ox 95 02/05/21 23:25 Body Mass Index 31.5 Appearance: Alert. Oriented X3. No acute distress. Eyes: Pupils equal, round and reactive to light. ENT: Pharynx normal. Neck: Normal inspection. Neck supple. CVS: Normal heart rate and rhythm. Pulses normal. Respiratory: No respiratory distress. Breath sounds normal. Abdomen: Soft and nontender. +BS x4 : uncircumzied penis, foreskin easily retractable, small amount of dried blood on his inner left thigh, no blood at meatus, cranberry juice colored urine in the carson tubing, no clots visualized. Skin: Skin warm and dry. Normal skin color. Normal skin turgor. No rashes. Extremities: No lower extremity edema. Neuro: Oriented X 3. No motor deficit. No sensory deficit. Course Course Course Narrative: 75 yo male presenting with new onset of hematuria in the setting of probable minor trauma. He is on Eliquis. Hemodynamically stable. Will flush Carson several times to get try to clear urine. Will check H/H and coags. Hold off on CBI for now. Reevaluation(s) Reevaluation #1: After irrigation there is significant improvement in his hematuria, only very light pink now. Carson bag changed. If remains stable will plan to d/c home and follow up with Dr. Martinez tomorrow. Reevaluation #2: Slight drop in H/H. No longer having significant hematuria. He is stable for d/c home with close follow up with Dr. Martinez. MDM - Male Genitourinary Lab Data Result diagrams: 02/05/21 23:31 02/05/21 23:31 Labs: Lab Results 02/05/21 02/05/21 02/05/21 Range/Units 23:31 23:31 23:31 WBC 6.3 (4.8-10.8) X10*3/uL RBC 4.11 L (4.60-5.80) X10*6/uL Hgb 12.9 L (14.0-18.0) g/dl Hct 38.6 L (42-52) % MCV 93.9 (80-98) fL MCH 31.4 (27.0-33.0) pg MCHC 33.4 (31.0-36.0) g/dl RDW 13.0 (11.0-16.0) % Plt Count 151 L (160-400) X10*3/uL MPV 9.9 (9.4-12.4) fL Immature Gran % (Auto) 0.3 (0.0-0.4) % Neut % (Auto) 70.3 (45-73) % Lymph % (Auto) 16.3 L (20-40) % Hawkins % (Auto) 12.4 H (2-11) % Eos % (Auto) 0.5 (0-4) % Baso % (Auto) 0.2 (0-2) % Lymph # (Auto) 1.0 L (1.2-4.9) X10*3/uL Hawkins # (Auto) 0.8 (0.1-1.2) X10*3/uL Eos # (Auto) 0.0 (0.0-0.4) X10*3/uL Baso # (Auto) 0.0 (0.0-0.2) X10*3/uL Abs Immat Gran (auto) 0.02 (0.00-0.03) X10*3/uL Absolute Neuts (auto) 4.4 (2.0-8.3) X10*3/uL Absolute Nucleated RBC 0.000 (0.0-0.012) X10*3/uL Nucleated RBC % (auto) 0.0 (0.0-0.2) /100WBC PT 16.0 H (9.9-13.0) SEC INR 1.4 H (0.9-1.1) APTT 35.2 (24.1-38.0) SEC Sodium 142 (135-145) mmol/L Potassium 3.4 (3.3-5.1) mmol/L Chloride 112 H (96-108) mmol/L Carbon Dioxide 24 (22-29) mmol/L Anion Gap 9 L (12-20) BUN 15 (9-16) mg/dL Creatinine 0.82 (0.5-1.4) mg/dL Estim Creat Clear Calc 97.8 Estimated GFR > 60 Random Glucose 110 (60-115) mg/dL Calcium 9.0 (8.4-10.2) mg/dL Discharge Plan Discharge Clinical Impression: Hematuria Qualifiers: Hematuria type: unspecified type Qualified Code(s): R31.9 - Hematuria, unspecified Patient Disposition: Home, Self-Care Instructions: Hematuria (ED) Additional Instructions: Follow up with Dr. Martinez tomorrow. If you develop new or worsening symptoms call 911 or come back to the ER for further evaluation. Prescriptions: No Action nitrofurantoin monohyd/m-cryst [Macrobid] 100 mg capsule 100 mg PO BID 3 Days Qty: 6 RF: 0 tamsulosin 0.4 mg capsule 0.8 mg PO DAILY RF: 0 omeprazole 20 mg capsule,delayed release(DR/EC) 20 mg PO DAILY RF: 0 lisinopril 20 mg tablet 20 mg PO DAILY RF: 0 atorvastatin 20 mg tablet 20 mg PO DAILY RF: 0 Eliquis 5 mg tablet 5 mg PO BID RF: 0 finasteride 5 mg tablet 5 mg PO DAILY 90 Days Qty: 90 RF: 1 Referrals: Jamal Martinez MD [Physician] - 1 day
[2021-02-05 23:25] VITALS: BP 149/72; PULSE 52; RESP 16; O2SAT 95
[2021-02-05 23:35] LABS: Basophils Percent Auto 0.2 % (0-2); Eosinophils Percent Auto 0.5 % (0-4); Hematocrit 38.6 % (42-52); Hemoglobin 12.9 g/dl (14.0-18.0); Imm Gran Abs Auto 0.02 X10*3/uL (0.00-0.03); Imm Gran Pct Auto 0.3 % (0.0-0.4); Lymphocytes Percent Auto 16.3 % (20-40); MANUAL DIFF FLAG NO; Mean Corpuscular HGB Conc 33.4 g/dl (31.0-36.0); Mean Corpuscular Hemoglobin 31.4 pg (27.0-33.0); Mean Corpuscular Volume 93.9 fL (80-98); Mean Platelet Volume 9.9 fL (9.4-12.4); Monocytes Absolute Auto 0.8 X10*3/uL (0.1-1.2); Monocytes Percent Auto 12.4 % (2-11); Neutrophils Absolute Auto 4.4 X10*3/uL (2.0-8.3); Neutrophils Percent Auto 70.3 % (45-73); Platelet Count 151 X10*3/uL (160-400); Red Blood Count 4.11 X10*6/uL (4.60-5.80); White Blood Count 6.3 X10*3/uL (4.8-10.8)
[2021-02-05 23:40] LABS: INTERNATIONAL NORM RATIO 1.4 (0.9-1.1)
[2021-02-05 23:43] LABS: Partial Thromboplastin Time 35.2 SEC (24.1-38.0)
[2021-02-05 23:54] LABS: Anion Gap 9 (12-20); Blood Urea Nitrogen 15 mg/dL (9-16); Carbon Dioxide 24 mmol/L (22-29); Chloride 112 mmol/L (96-108); Creatinine Clr Calc Pharmacy 97.8; Estimated Glomerular Filt Rate > 60; Glucose Random 110 mg/dL (60-115); Potassium 3.4 mmol/L (3.3-5.1); Sodium 142 mmol/L (135-145)
== END 2021-02-06 00:58 | disposition home or self-care (01) ==
PROVIDERS: Physician Assistant; Emergency Provider Emergency Medicine; PCP Internal Medicine
DX: T83.83XA Hemorrhage due to genitourinary prosthetic devices, implants and grafts, initial encounter (principal); Z96.0 Presence of urogenital implants; I10 Essential (primary) hypertension; I48.0 Paroxysmal atrial fibrillation; Z79.01 Long term (current) use of anticoagulants; Z86.73 Personal history of transient ischemic attack (TIA), and cerebral infarction without residual deficits
CPT/HCPCS: 36415; 51702; 74176; 80048; 80076; 81001; 83735; 85025; 85610; 85730; 99283; 99284

== ENCOUNTER → 2021-02-21 09:24 | Outpatient (BNVA) | payer MEDICARE, OTHER, SELFPAY | PROVIDERS: PCP Internal Medicine; Visit Provider Urology | DX: N40.1 Benign prostatic hyperplasia with lower urinary tract symptoms (principal); N13.8 Other obstructive and reflux uropathy; N13.9 Obstructive and reflux uropathy, unspecified | CPT/HCPCS: 99212 ==

== ENCOUNTER 2021-02-21 19:22 | Emergency (ER) | payer MEDICARE, OTHER, SELFPAY ==
[2021-02-21 19:45] VITALS: BP 161/103; PULSE 111; RESP 17; TEMP 36.6; O2SAT 98; BMI 30.7
--- NOTE | 2021-02-21 20:42 | PC.NURSE ---
pt in RP in bed, unsuccessful attempt by this RN to place 16 carson, unable to get past the prostate, dr bennett at bedside and made mult attempts with first an 18 and then successful w a coude 16 w immediate relief, pt has pink tinged urine , bladder scan shows 756ml in bladder, at this moment, bladder is still emptying, nad, no pain. teaching done w pt re care and follow up
--- NOTE | 2021-02-21 20:43 | ED.GENADULT ---
HPI - General Adult General Chief complaint: General Medical Stated complaint: Unable to void Time Seen by Provider: 02/21/21 20:42 Source: patient and family (Spouse) Mode of arrival: ambulatory Limitations: no limitations History of Present Illness HPI narrative: 75-year-old male came in for evaluation of urinary retention. Patient with history of enlarged prostate, recently patient had urinary retention needed Fisher catheter to drain, patient was seen by urologist today and removed his catheter in the morning, patient was able initially to urinate small amount of urine. Now feel suprapubic distension and discomfort. Related Data Home Medications Medication Instructions Recorded Confirmed apixaban 5 mg tablet (Eliquis) 5 mg PO BID 04/11/20 01/24/21 atorvastatin 20 mg tablet 20 mg PO DAILY 04/11/20 01/24/21 lisinopril 20 mg tablet 20 mg PO DAILY 04/11/20 01/24/21 omeprazole 20 mg capsule,delayed 20 mg PO DAILY 04/11/20 01/24/21 release tamsulosin 0.4 mg capsule 0.8 mg PO DAILY 04/11/20 01/24/21 Previous Rx's Medication Instructions Recorded finasteride 5 mg tablet 5 mg PO DAILY 90 Days #90 tab 01/24/21 nitrofurantoin 100 mg PO BID 3 Days #6 cap 02/05/21 monohydrate/macrocrystals 100 mg capsule (Macrobid) phenazopyridine 100 mg tablet 100 mg PO TID PRN 5 Days #15 tab 02/08/21 (Pyridium) oxybutynin chloride 5 mg tablet 5 mg PO BEDTIME PRN 14 Days #14 tab 02/13/21 terazosin 10 mg capsule 10 mg PO BEDTIME 90 Days #90 cap 02/21/21 Allergies Allergy/AdvReac Type Severity Reaction Status Date / Time Penicillins Allergy Mild RASH Verified 02/05/21 21:14 Review of Systems Review of Systems: All other systems are reviewed and are negative Constitutional: Reports as per HPI and Reports no additional constitutional complaints Eyes: Reports as per HPI and Reports no additional eye complaints Reports system reviewed and no additional complaints, except as documented Cardiovascular: Reports as per HPI and Reports no additional cardiovascular complaints Respiratory: Reports as per HPI and Reports no additional respiratory complaints Gastrointestinal: Reports as per HPI and Reports no additional gastrointestinal complaints Genitourinary: Reports no additional female genitourinary complaints Musculoskeletal: Reports no additional musculoskeletal complaints Skin/Breast: Reports system reviewed and no additional complaints, except as docu Psychiatric: Reports no additional psychiatric complaints Endocrine: Reports no additional endocrine complaints Hematologic/Lymphatic: Reports no additional hematologic/lymphatic complaints Allergic/Immunologic: Reports no additional allergic/immunologic complaints Reports system reviewed and no additional complaints, except as documented and Reports Abnormal speech present [facility] Past Medical History Medical History Ascending aorta dilatation BPH (benign prostatic hyperplasia) BPH with obstruction/lower urinary tract symptoms Elevated PSA GERD (gastroesophageal reflux disease) HTN (hypertension) Nasal polyps Paroxysmal atrial flutter Sinus bradycardia TIA (transient ischemic attack) Surgical History H/O colonoscopy H/O umbilical hernia repair S/P inguinal hernia repair Family History Family History Father Cardiovascular disease Mother No problems noted. Social History Social History Alcohol intake: never Patient Tobacco Use Status: Never used Tobacco Advance Directives: No Advance Directives Information Provided: No Physical Exam Vital Signs: Vital Signs: Last Vital Signs Temp 98 F 02/21/21 19:45 Pulse 111 H 02/21/21 19:45 Resp 17 02/21/21 19:45 BP 161/103 H 02/21/21 19:45 Pulse Ox 98 02/21/21 19:45 Body Mass Index 30.7 Vital signs have been reviewed as appeared to be correct. Blood pressure elevated. Heart rate elevated. Respiration rate normal. Temperature normal. Oxygen saturation normal. Appearance: Alert. Oriented X3. No acute distress. Head: Normal external exam. Normocephalic. Atraumatic. No Greenberg signs noted. No raccoon eyes noted Eyes: PERRLA. EOMI. Conjunctiva and sclera normal. Eyelids normal. ENT: TM's Normal. Pharynx normal. Uvula midline. Moist mucous membranes. No trismus noted. No drooling noted. No muffled voice noted. Neck: Normal inspection. Neck supple. FROM. No adenopathy. Thyroid Normal. No meningeal signs. No neck mass noted. CVS: Normal heart rate and rhythm. Heart sound normal. No murmurs noted. Pulses normal throughout. Respiratory: No respiratory distress. Painless inspiration. Breath sounds normal. No wheezes/rales/rhonchi noted. Chest nontender. No accessory muscle usage noted or decreased air movement noted. Abdomen: Soft, suprapubic distention with mild tenderness, no rebound tenderness, no guarding. Bowel sounds normal in all 4 quadrants. No distention noted. No organomegaly noted. No visible injury noted. Back: No CVA tenderness. Full range of motion noted. Skin: Skin warm and dry. Normal skin color. Normal skin turgor. No rashes/lesions/lacerations noted. Extremities: No lower extremity edema. Extremities exhibit normal range of motion. Extremities nontender. Neuro: Oriented X 3. Cranial nerve exam: II-XII are grossly intact No motor deficit. No sensory deficit. Reflexes normal. Course Course Course Narrative: Assessment and plan. 75 years old male with a history of BPH, had Fisher catheter removed by Dr. Martinez today, patient returned to the emergency department unable to urinate, Fisher catheter was inserted with 800 cc of vanc urine was drained. Leg bag was provided to the patient was teaching, patient was instructed to follow up with Dr. Martinez. Discharge Plan Discharge Clinical Impression: BPH with obstruction/lower urinary tract symptoms, Acute retention of urine Patient Disposition: Home, Self-Care Instructions: Fisher Catheter Placement and Care (ED) Prescriptions: No Action phenazopyridine [Pyridium] 100 mg tablet 100 mg PO TID PRN (Reason: pain) 5 Days Qty: 15 RF: 0 oxybutynin chloride 5 mg tablet 5 mg PO BEDTIME PRN (Reason: bladder spasms) 14 Days Qty: 14 RF: 0 nitrofurantoin monohyd/m-cryst [Macrobid] 100 mg capsule 100 mg PO BID 3 Days Qty: 6 RF: 0 tamsulosin 0.4 mg capsule 0.8 mg PO DAILY RF: 0 omeprazole 20 mg capsule,delayed release(DR/EC) 20 mg PO DAILY RF: 0 lisinopril 20 mg tablet 20 mg PO DAILY RF: 0 atorvastatin 20 mg tablet 20 mg PO DAILY RF: 0 Eliquis 5 mg tablet 5 mg PO BID RF: 0 finasteride 5 mg tablet 5 mg PO DAILY 90 Days Qty: 90 RF: 1 terazosin 10 mg capsule 10 mg PO BEDTIME 90 Days Qty: 90 RF: 1 Referrals: Adin Macias MD [Primary Care Provider] - 2 days Jamal Martinez MD [Physician] - 2 days
[2021-02-21] MEDS: Lidocaine HCl 2 % Urojet 10 ML JEL.PF.APP TOPICAL ×2 (20:48)
--- NOTE | 2021-02-21 21:53 | PC.NURSE ---
CATHETER PLACED BY CHOCO HODGSON AND DR BEDOYA X2 DIFFICULT PLACEMENT BLOOD NOTED PT ON BLOOD THINNER MD AWARE URINE COOLAID COLOR AND CLEARING. PT WILL GO HOME WITH LEG BAG AND BE SEEN IN DR RIVAS OFFICE IN AM.
== END 2021-02-21 21:57 | disposition home or self-care (01) ==
PROVIDERS: Emergency Provider Emergency Medicine; PCP Internal Medicine
DX: N40.0 Benign prostatic hyperplasia without lower urinary tract symptoms (principal); R33.9 Retention of urine, unspecified; Z79.899 Other long term (current) drug therapy
CPT/HCPCS: 51702; 99212; 99283

== ENCOUNTER → 2021-03-06 08:33 | Outpatient (BNVA) | payer MEDICARE, OTHER, SELFPAY | PROVIDERS: PCP Internal Medicine; Visit Provider Urology | DX: N40.1 Benign prostatic hyperplasia with lower urinary tract symptoms (principal); N13.8 Other obstructive and reflux uropathy; R97.20 Elevated prostate specific antigen [PSA] | CPT/HCPCS: 51798; 99212 ==

== ENCOUNTER 2021-03-13 10:51 | Outpatient (REF) | payer MEDICARE, OTHER, SELFPAY ==
[2021-03-13 13:56] LABS: MANUAL DIFF FLAG NO
[2021-03-13 14:02] LABS: Basophils Percent Auto 0.5 % (0-2); Eosinophils Absolute Auto 0.1 X10*3/uL (0.0-0.4); Eosinophils Percent Auto 1.5 % (0-4); Imm Gran Abs Auto 0.03 X10*3/uL (0.00-0.03); Imm Gran Pct Auto 0.5 % (0.0-0.4); Lymphocytes Percent Auto 15.8 % (20-40); Mean Corpuscular HGB Conc 32.4 g/dl (31.0-36.0); Mean Corpuscular Hemoglobin 30.7 pg (27.0-33.0); Mean Corpuscular Volume 94.6 fL (80-98); Mean Platelet Volume 10.1 fL (9.4-12.4); Monocytes Absolute Auto 0.6 X10*3/uL (0.1-1.2); Monocytes Percent Auto 9.8 % (2-11); Neutrophils Absolute Auto 4.3 X10*3/uL (2.0-8.3); Neutrophils Percent Auto 71.9 % (45-73); Platelet Count 230 X10*3/uL (160-400); Red Blood Count 3.91 X10*6/uL (4.60-5.80)
[2021-03-13 14:06] LABS: Appearance Urine HAZY; Color Urine STRAW; Glucose Urine UA NEG (NEG); Leukocyte Esterase Urine 3+ (NEG); Nitrite Urine NEG (NEG); UACC Culture Trigger YES; Urine Blood 3+ (NEG); Urine Ketones NEG (NEG); Urine Protein 1+ MG/DL (NEG-TRACE)
[2021-03-13 14:35] LABS: Alanine Aminotransferase 15 U/L (0-40); Alkaline Phosphatase 93 U/L (39-117); Anion Gap 11 (12-20); Aspartate Amino Transferase 13 U/L (5-37); Bilirubin Total 0.5 mg/dL (0.0-1.0); Blood Urea Nitrogen 17 mg/dL (9-16); C Reactive Protein 0.09 mg/dL (< or = 0.50); Calcium 9.7 mg/dL (8.4-10.2); Carbon Dioxide 23 mmol/L (22-29); Chloride 109 mmol/L (96-108); Estimated Glomerular Filt Rate > 60; Glucose Random 125 mg/dL (60-115); Magnesium 2.2 mg/dL (1.6-2.6); Potassium 4.3 mmol/L (3.3-5.1); Sodium 139 mmol/L (135-145); Total Protein 6.8 g/dL (6.5-8.0)
[2021-03-13 14:51] LABS: WBC Clumps Urine NOTED
[2021-03-13 14:52] LABS: RBC Urine 50-75 /HPF (0)
[2021-03-13 14:54] LABS: Bacteria Urine 1+ /LPF; WBC Urine 30-49 /HPF (0-4)
== END 2021-03-13 10:52 | disposition home or self-care (01) ==
LOC: HO.10HDL 10:51
PROVIDERS: Visit Provider Internal Medicine
DX: R42 Dizziness and giddiness (principal); I48.0 Paroxysmal atrial fibrillation; I10 Essential (primary) hypertension
CPT/HCPCS: 36415; 80053; 81001; 81003; 83735; 85025; 86140; 87086; 87088; 87186

== ENCOUNTER 2021-03-16 07:59 | Outpatient (REF) | payer MEDICARE, OTHER, SELFPAY ==
[2021-03-16 10:56] LABS: Appearance Urine HAZY; Glucose Urine UA NEG (NEG); Leukocyte Esterase Urine 2+ (NEG); Nitrite Urine POS (NEG); UACC Culture Trigger YES; Urine Blood 3+ (NEG); Urine Ketones NEG (NEG); Urine Protein 3+ MG/DL (NEG-TRACE)
[2021-03-16 10:57] LABS: Color Urine AMBER
[2021-03-16 11:30] LABS: Bacteria Urine 1+ /LPF; RBC Urine TNTC /HPF (0); WBC Urine 30-49 /HPF (0-4)
== END 2021-03-16 08:00 | disposition home or self-care (01) ==
LOC: HO.10HDL 07:59
PROVIDERS: Visit Provider Internal Medicine
DX: R31.9 Hematuria, unspecified (principal); R30.0 Dysuria
CPT/HCPCS: 81001; 87086

== ENCOUNTER 2021-03-17 20:15 | Emergency (ER) | payer MEDICARE, OTHER, SELFPAY ==
--- NOTE | ~2021-03-17 | CT_ITS ---
EXAMINATION: CT HEAD WITHOUT CONTRAST CLINICAL INFORMATION: Severe dizziness. COMPARISON: CT head June 29, 2019. MRI brain June 29, 2019 TECHNIQUE: Contiguous axial imaging was performed from the skull base to vertex without intravenous administration of contrast. Coronal and sagittal reformatted images are performed at the CT scanner. [This CT examination was performed using dose optimization techniques as appropriate, variously including the following: *Automated exposure control *Adjustment of mA and/or kV according to patient size (this includes techniques or standardized protocols for targeted exams where dose is matched to indication/reason for exam; i.e. extremities or head) *Use of iterative reconstruction technique] DLP: 733 mGy-cm. FINDINGS: There is no evidence of acute intracranial hemorrhage or territorial infarction. No abnormal mass-effect or midline shift is seen. Rivero to white matter differentiation is well preserved. No extra-axial fluid collections are identified. There is mild generalized global volume loss. There is mild prominence of the ventricles and the sulci . There are vascular calcifications of the internal carotid arteries bilaterally. There is no osseous abnormality. Lobular mucosal thickening scattered in the ethmoid sinuses. Small air-fluid levels in the maxillary sinuses. Surgical window is at the medial wall the right and left maxillary sinus. Mastoid air cells and middle ear cavities are normally aerated. CT/CT head/brain wo con IMPRESSION: No acute intracranial pathology.
[2021-03-17 20:43] VITALS: BP 128/54; PULSE 55; RESP 18; TEMP 36.6; O2SAT 96
--- NOTE | 2021-03-17 21:00 | ECG_ITS ---
Test Reason : dizziness Blood Pressure : / mmHG Vent. Rate : 056 BPM Atrial Rate : 056 BPM P-R Int : 178 ms QRS Dur : 098 ms QT Int : 408 ms P-R-T Axes : 027 008 027 degrees QTc Int : 393 ms Sinus bradycardia Intra-ventricular conduction delay Left atrial enlargement Otherwise normal ECG No significant changes seen Referred By: Philip Burgos Electronically Signed By:JAUN BARNES MD
--- NOTE | 2021-03-17 21:00 | ED.NEUROSD ---
HPI - Neuro Symptoms/Deficit General Chief Complaint: Dizziness Stated Complaint: dizziness, body ache Time Seen by Provider: 03/17/21 20:56 Source: patient Mode of arrival: ambulatory Limitations: no limitations History of Present Illness HPI Narrative: Patient with history of benign positional vertigo seen ENT status post tube placed in right ear 1 week ago been complaining of dizziness especially when he lays head backwards history of same in the past ENT doctor started him on meclizine patient is still feeling same not getting better difficult to ambulate or sleep. No nausea no vomiting no focal weakness no headache no nausea no vomiting no focal weakness Related Data Home Medications Medication Instructions Recorded Confirmed apixaban 5 mg tablet (Eliquis) 5 mg PO BID 04/11/20 01/24/21 atorvastatin 20 mg tablet 20 mg PO DAILY 04/11/20 01/24/21 lisinopril 20 mg tablet 20 mg PO DAILY 04/11/20 01/24/21 omeprazole 20 mg capsule,delayed 20 mg PO DAILY 04/11/20 01/24/21 release tamsulosin 0.4 mg capsule 0.8 mg PO DAILY 04/11/20 01/24/21 Previous Rx's Medication Instructions Recorded finasteride 5 mg tablet 5 mg PO DAILY 90 Days #90 tab 01/24/21 nitrofurantoin 100 mg PO BID 3 Days #6 cap 02/05/21 monohydrate/macrocrystals 100 mg capsule (Macrobid) phenazopyridine 100 mg tablet 100 mg PO TID PRN 5 Days #15 tab 02/08/21 (Pyridium) oxybutynin chloride 5 mg tablet 5 mg PO BEDTIME PRN 14 Days #14 tab 02/13/21 terazosin 10 mg capsule 10 mg PO BEDTIME 90 Days #90 cap 02/21/21 lorazepam 1 mg tablet (Ativan) 1 mg PO BEDTIME PRN #14 tab 03/17/21 Allergies Allergy/AdvReac Type Severity Reaction Status Date / Time Penicillins Allergy Mild RASH Verified 03/17/21 20:42 Review of Systems Review of Systems: Yes all other systems are reviewed and are negative [facility] Past Medical History Medical History Ascending aorta dilatation BPH (benign prostatic hyperplasia) BPH with obstruction/lower urinary tract symptoms Elevated PSA GERD (gastroesophageal reflux disease) HTN (hypertension) Nasal polyps Paroxysmal atrial flutter Sinus bradycardia TIA (transient ischemic attack) Surgical History H/O colonoscopy H/O umbilical hernia repair S/P inguinal hernia repair Family History Family History Father Cardiovascular disease Mother No problems noted. Social History Social History Alcohol intake: never Patient Tobacco Use Status: Never used Tobacco Advance Directives: No Advance Directives Information Provided: Yes Physical Exam Vital Signs: Vital Signs: Last Vital Signs Temp 98 F 03/17/21 20:43 Pulse 55 03/17/21 20:43 Resp 18 03/17/21 20:43 BP 128/54 L 03/17/21 20:43 Pulse Ox 96 03/17/21 20:43 Body Mass Index 0.0 Appearance: Alert. Oriented X3. No acute distress. Feeling dizzy when moves his head backwards Eyes: PERRLA, No Nystagmus ENT: Pharynx normal. Oral Mucosa moist tympanic membrane intact tube present and patent in right tympanic membrane Neck: Normal inspection. Neck supple. CVS: Normal heart rate and rhythm. Pulses normal. Respiratory: No respiratory distress. Equal air entry bilateral, no wheezing/rales/rhonchi Abdomen: Soft and nontender. Bowel sounds are present, no mass palpable, Skin: Skin warm and dry. Normal skin color. Normal skin turgor. Extremities: No lower extremity edema. No calf tenderness Neuro: Oriented X 3. No motor deficit. No sensory deficit.No cerebellar signs , cranial nerves II-XII intact MDM - Neuro Symptoms/Deficit MDM Narrative Medical decision making narrative: Patient with benign positional vertigo CT scan of the head is negative feels better after Ativan advised to continue meclizine and follow with ENT Lab Data Attestation: I reviewed the patient's lab results. Result diagrams: 03/17/21 21:19 03/17/21 21:19 Labs: Lab Results 03/17/21 03/17/21 03/17/21 Range/Units 21:19 21:19 21:19 WBC 7.1 (4.8-10.8) X10*3/uL RBC 3.91 L (4.60-5.80) X10*6/uL Hgb 12.3 L (14.0-18.0) g/dl Hct 36.5 L (42-52) % MCV 93.4 (80-98) fL MCH 31.5 (27.0-33.0) pg MCHC 33.7 (31.0-36.0) g/dl RDW 13.0 (11.0-16.0) % Plt Count 208 (160-400) X10*3/uL MPV 9.5 (9.4-12.4) fL Immature Gran % (Auto) 0.3 (0.0-0.4) % Neut % (Auto) 59.3 (45-73) % Lymph % (Auto) 23.9 (20-40) % [place] % (Auto) 13.4 H (2-11) % Eos % (Auto) 2.7 (0-4) % Baso % (Auto) 0.4 (0-2) % Lymph # (Auto) 1.7 (1.2-4.9) X10*3/uL [place] # (Auto) 1.0 (0.1-1.2) X10*3/uL Eos # (Auto) 0.2 (0.0-0.4) X10*3/uL Baso # (Auto) 0.0 (0.0-0.2) X10*3/uL Abs Immat Gran (auto) 0.02 (0.00-0.03) X10*3/uL Absolute Neuts (auto) 4.2 (2.0-8.3) X10*3/uL Absolute Nucleated RBC 0.000 (0.0-0.012) X10*3/uL Nucleated RBC % (auto) 0.0 (0.0-0.2) /100WBC PT 16.4 H (9.9-13.0) SEC INR 1.4 H (0.9-1.1) Sodium 141 (135-145) mmol/L Potassium 4.0 (3.3-5.1) mmol/L Chloride 112 H (96-108) mmol/L Carbon Dioxide 21 L (22-29) mmol/L Anion Gap 12 (12-20) BUN 15 (9-16) mg/dL Creatinine 0.84 (0.5-1.4) mg/dL Estim Creat Clear Calc 109.0 Estimated GFR > 60 Random Glucose 100 (60-115) mg/dL Calcium 9.8 (8.4-10.2) mg/dL Magnesium 2.3 (1.6-2.6) mg/dL Discharge Plan Discharge Clinical Impression: Benign paroxysmal positional vertigo Qualifiers: Laterality: bilateral Qualified Code(s): H81.13 - Benign paroxysmal vertigo, bilateral Patient Disposition: Home, Self-Care Instructions: Benign Paroxysmal Positional Vertigo (ED) Additional Instructions: Continue to take the medication meclizine every 8 hours as needed for severe dizziness Ativan 1 mg every night as needed for dizziness and sleep Follow-up with physical therapy/ENT specialist for further evaluation and treatment Care and cautions as advised Prescriptions: New lorazepam [Ativan] 1 mg tablet 1 mg PO BEDTIME PRN (Reason: sleep) Qty: 14 RF: 0 No Action phenazopyridine [Pyridium] 100 mg tablet 100 mg PO TID PRN (Reason: pain) 5 Days Qty: 15 RF: 0 oxybutynin chloride 5 mg tablet 5 mg PO BEDTIME PRN (Reason: bladder spasms) 14 Days Qty: 14 RF: 0 nitrofurantoin monohyd/m-cryst [Macrobid] 100 mg capsule 100 mg PO BID 3 Days Qty: 6 RF: 0 tamsulosin 0.4 mg capsule 0.8 mg PO DAILY RF: 0 omeprazole 20 mg capsule,delayed release(DR/EC) 20 mg PO DAILY RF: 0 lisinopril 20 mg tablet 20 mg PO DAILY RF: 0 atorvastatin 20 mg tablet 20 mg PO DAILY RF: 0 Eliquis 5 mg tablet 5 mg PO BID RF: 0 finasteride 5 mg tablet 5 mg PO DAILY 90 Days Qty: 90 RF: 1 terazosin 10 mg capsule 10 mg PO BEDTIME 90 Days Qty: 90 RF: 1
[2021-03-17 21:25] LABS: MANUAL DIFF FLAG NO
[2021-03-17 21:27] LABS: Basophils Percent Auto 0.4 % (0-2); Eosinophils Absolute Auto 0.2 X10*3/uL (0.0-0.4); Eosinophils Percent Auto 2.7 % (0-4); Hematocrit 36.5 % (42-52); Hemoglobin 12.3 g/dl (14.0-18.0); Imm Gran Abs Auto 0.02 X10*3/uL (0.00-0.03); Imm Gran Pct Auto 0.3 % (0.0-0.4); Lymphocytes Absolute Auto 1.7 X10*3/uL (1.2-4.9); Lymphocytes Percent Auto 23.9 % (20-40); Mean Corpuscular HGB Conc 33.7 g/dl (31.0-36.0); Mean Corpuscular Hemoglobin 31.5 pg (27.0-33.0); Mean Corpuscular Volume 93.4 fL (80-98); Mean Platelet Volume 9.5 fL (9.4-12.4); Monocytes Percent Auto 13.4 % (2-11); Neutrophils Absolute Auto 4.2 X10*3/uL (2.0-8.3); Neutrophils Percent Auto 59.3 % (45-73); Platelet Count 208 X10*3/uL (160-400); Red Blood Count 3.91 X10*6/uL (4.60-5.80); White Blood Count 7.1 X10*3/uL (4.8-10.8)
[2021-03-17 21:32] LABS: INTERNATIONAL NORM RATIO 1.4 (0.9-1.1); Prothrombin Time 16.4 SEC (9.9-13.0)
[2021-03-17 21:42] LABS: Anion Gap 12 (12-20); Blood Urea Nitrogen 15 mg/dL (9-16); Calcium 9.8 mg/dL (8.4-10.2); Carbon Dioxide 21 mmol/L (22-29); Chloride 112 mmol/L (96-108); Estimated Glomerular Filt Rate > 60; Glucose Random 100 mg/dL (60-115); Magnesium 2.3 mg/dL (1.6-2.6); Sodium 141 mmol/L (135-145)
[2021-03-17] MEDS: LORazepam 2 MG/ML VIAL 1 MG IVPUSH (22:29)
== END 2021-03-17 23:00 | disposition home or self-care (01) ==
PROVIDERS: Emergency Provider Internal Medicine
DX: H81.13 Benign paroxysmal vertigo, bilateral (principal); I10 Essential (primary) hypertension
CPT/HCPCS: 36415; 70450; 80048; 83735; 85025; 85610; 93005; 96374; 99283; 99284; J2060

== ENCOUNTER → 2021-03-22 08:56 | Outpatient (BNVA) | payer MEDICARE, OTHER, SELFPAY | PROVIDERS: PCP Internal Medicine; Visit Provider Urology | DX: N40.1 Benign prostatic hyperplasia with lower urinary tract symptoms (principal); N13.8 Other obstructive and reflux uropathy | CPT/HCPCS: 51702; 51705 ==

== ENCOUNTER 2021-04-02 07:00 | Outpatient (RCR) | payer MEDICARE, OTHER, SELFPAY ==
--- NOTE | 2021-03-28 09:04 | MHC.PT.EP ---
[facility] [place] Office [place] Office [place] Office [address] Giulia Tariq [address] [phone] F: [phone] F: [phone] F: [phone] F: [phone] Physical Therapy Plan of Care Date of Evaluation: Date of Surgery: Diagnosis: vergigo Assessment: The patient had violent spinning in right hallpike indicationg posterior canal BPPV. He was encouraged to stay in the position and we were able to complete 1 rep of the CRM. During the second rep of CRM I saw geotropic nystagmus. I sat him up and did the Apiani for the right horizontal canal. He sat for 10 minutes following the procedure and he was able to stand, move and walk independently. His is driving him home. He will return for f/u of BPPV. Frequency and Duration: The patient will be seen 2x/week x 4 weeks. Short Term Goals: 1.Pt to be negative for nystagmus in all diagnostic positions for BPPV to facilitate improved functional movements. Halfway Goals: 1. For the patient to be negative for nystagmus or reports of vertigo in all diagnostic positions bilaterally to resolution of BPPV in 4 weeks. 2. For the patient to be able to functionally move in all planes and directions without provocation of dizziness to show return to PLOF. 3.For the patient to be educated on symptoms and indications to return to therapy when needed in 4 weeks. Treatment Plan: Modalities to reduce pain, spasms and effusion. Manual therapy to restore motion and function. Therapeutic exercise to improve strength and flexibility. Neuromuscular re-education for posture and balance. Therapeutic activities to return to functional activities of daily living. Electronically signed by: Marifer Koo PT DPT Please sign and return to therapist. Thank you for your referral.
== END 2021-05-16 08:00 | disposition home or self-care (01) ==
LOC: HO.PT 07:00
PROVIDERS: PCP Internal Medicine; Visit Provider Internal Medicine
DX: H81.4 Vertigo of central origin (principal)
CPT/HCPCS: 95992; 97112; 97162; 97530

== ENCOUNTER 2021-04-16 08:05 | Day surgery (SDC) | payer MEDICARE, OTHER, SELFPAY ==
[2021-04-06 09:31] VITALS: BMI 29.9
[2021-04-16] VITALS (12 sets, daily range): BP systolic 139–162; BP diastolic 65–85; PULSE 54–77; RESP 16–18; TEMP 36.3–37; O2SAT 95–98
[2021-04-16] MEDS: Lactated Ringers 1,000 ML 50 ML IVCONT (08:33)
[2021-04-16] MEDS: levoFLOXacin/D5W 500 MG/100 ML PIGGYBACK 100 MG IV (08:55)
--- NOTE | 2021-04-16 10:05 | HO.ANESPROP2 ---
HPI - Anesthesia Eval Consult details Narrative: 75 yo male patient for laser ablation of prostate with green light PMFSH Active Problems Active Problems: All Active Problems (Updated 04/06/21 @ 09:47 by Denia Stephenson RN) Atrial flutter by electrocardiogram (Acute). On eliquis. Last dose 04/13/21 Obstructive sleep apnea (Acute). No CPAP Mild obstructive sleep apnea (Acute) Urinary obstruction (Acute) Elevated PSA (Acute) BPH with obstruction/lower urinary tract symptoms (Acute) Sinus bradycardia (Acute) Paroxysmal atrial flutter (Acute) s/p cardioversion. Now off metoprolol Sinus congestion with vertigo and lightheadedness in the last few weeks. Has had some therapy and is following up after surgery. No fainting or falls Past Medical History Medical History Ascending aorta dilatation BPH (benign prostatic hyperplasia) BPH with obstruction/lower urinary tract symptoms COVID-19 vaccine series completed Elevated PSA GERD (gastroesophageal reflux disease) History of cardioversion HTN (hypertension) On anticoagulant therapy MARÍA (obstructive sleep apnea) Paroxysmal atrial flutter Sinus bradycardia Sinusitis nasal TIA (transient ischemic attack) Vertigo Family History Family History Father Cardiovascular disease Mother No problems noted. Family history of problems with anesthesia: No Surgical History Surgical History H/O colonoscopy H/O umbilical hernia repair History of left inguinal hernia repair Hx of nasal polypectomy S/P myringotomy with insertion of tube History of Problems with Anesthesia: No Social History Social History Are you a primary transitional care nurse to a significant other at home: No Do you presently have visiting nurse or other home services: No Alcohol intake: never Patient Tobacco Use Status: Never used Tobacco Use of substances other than those prescribed or required for medical reasons: No Have you been hit, kicked, punched, or otherwise hurt by someone within the past year? If so, by whom?: No Are you DNR?: No Advance Directives: No Advance Directives Information Provided: No Advance Directives on File: No Recently lost weight without trying: No Eating poorly because of decreased appetite: No Nutrition Risks: No Nutritional Risk Meds Allergies Allergy/AdvReac Type Severity Reaction Status Date / Time Penicillins Allergy Mild RASH Verified 04/06/21 08:29 Active Medications: Current Medications Lactated Ringer's (Lr) 1,000 mls @ 50 mls/hr IVCONT .Q20H JANNET Last Admin: 04/16/21 08:33 Dose: 50 mls/hr Documented by: Home Medications Medication Instructions Recorded Confirmed Last Taken Type apixaban 5 mg tablet (Eliquis) 5 mg PO BID 04/11/20 04/06/21 04/13/21 History atorvastatin 20 mg tablet 20 mg PO DAILY 04/11/20 04/06/21 Unknown History lisinopril 20 mg tablet 20 mg PO DAILY 04/11/20 04/06/21 Unknown History omeprazole 20 mg capsule,delayed 20 mg PO DAILY 04/11/20 04/06/21 Unknown History release tamsulosin 0.4 mg capsule 0.8 mg PO DAILY 04/11/20 04/06/21 Unknown History fluticasone propionate 50 1 spray INTRANASAL DAILY 04/06/21 04/06/21 Unknown History mcg/actuation nasal spray,suspension Exam Exam Date and Time: April 16, 2021 1005 Height,Weight and Vital Signs: Height 5 ft 11 in Weight 97.522 kg Last Vital Signs Temp 98.6 F 04/16/21 08:21 Pulse 66 04/16/21 08:21 Resp 18 04/16/21 08:21 BP 151/77 H 04/16/21 08:21 Pulse Ox 98 04/16/21 08:21 Airway Mallampati Class: II TM Dist: >3cm Neck ROM: Full Heart: RRR Lungs: CTAB Assessment and Plan Assessment Anesthesia Assessment: Anesthesia Plan Discussed and Chart Reviewed Final Anesthetic Review Family History of Problems with Anesthesia: No History of Problems with Anesthesia: No NPO: Yes ASA Class: III Final Preanesthetic Review: No Changes in Pt Med Stat, Meds/Allgs Chart Reviewed, Consent Obtained/Reviewed and Anes Risks/Benef Reviewed Patient Risk: Intermediate Procedure Risk: Low Assessment/Block/Sedation in SS: Assess/Block/Sedation-SS Anesthetic Plan Anesthetic Plan: GA
--- NOTE | 2021-04-16 10:12 | MHC.SHP ---
Pre-Procedural Eval Section A Date of Service: 04/16/21 Section B Chief Complaint: benign prostatic hyperplasia Details of Present Illness: Persistent urinary retention with longstanding combination therapy BPH Relevant Family History (Specify if Yes): No Relevant Social History: None Present Medications: see Short Stay Collaborative assessment Medical History: No relevant PMH History of Previous Operations: No relevant previous surgery Allergies: Allergies Allergy/AdvReac Type Severity Reaction Status Date / Time Penicillins Allergy Mild RASH Verified 04/06/21 08:29 Review of Systems Sugical H&P ROS: Negative: Constitution, Cardiovascular, Respiratory, Neurological, Psychiatric, Hem-Onc, Allergic/Immunologic, Gastrointestinal, Genitourinary, Musculoskeletal, Integumentary, Endocrine and Eyes/Ears/Nose/Throat Exam Surgical H&P Exam: Normal: HEENT, Normal: Heart, Normal: Lungs, Normal: Extremities, Normal: Abdomen, Normal: Skin and Normal: Neurological Plan Diagnosis/Plan: Unchanged (Cystoscopy, laser enucleation of the prostate) I have reviewed the history and physical and performed a pertinent physical examination on my patient. No changes have occurred unless specified.
--- NOTE | 2021-04-16 11:15 | W.PM.OPN ---
Operative Note Operative Note Date of Service: 04/16/21 Narrative: PreOperative Diagnosis: Bladder outlet obstruction Post Operative Diagnosis: Bladder outlet obstruction Procedure: GreenLight laser enucleation of the prostate Surgeon: Dr Jamal Martinez Anesthesia: General Indications for procedure: History of bladder outlet obstruction. Treated with combination therapy in the past. Known large prostate. Had urinary retention and failed voiding trial. Has background of use of anticoagulation. Had been informed to hold for 5 days prior to procedure. Maintenance Groundman told him to hold for 3 days. Last dose was Friday 3 days ago. Procedure: After informed consent was verified the patient was brought to the operating room and placed in a supine position. Anesthesia was administered per protocol. Patient was placed in modified dorsal lithotomy position and prepped and draped in a sterile fashion. Safety pause time-out was confirmed. Antibiotics have been given. Twenty-four Swedish laser cystoscope was inserted per urethra. No abnormalities found the anterior posterior urethra. The bladder was filled on both ureteric orifices were seen in normal position away from our area of interest. The prostate was asymmetric with a large right median lobe pushing of towards the left. Minimal median lobe. Using a GreenLight laser settings of 80 w incisions were made at the 5 and 7 o'clock position. They were taken down and then laterally on each side. They were brought from the bladder neck down to the level of the veru. These defined the lateral aspects of the small median lobe area. The median lobe was ablated and enucleated tissue removed. At this point the prostate did have some degree of hemorrhagic ooze. The blood pressure was controlled to close to 100 systolic. We proceeded with using a higher power setting and attempting to ablate the obstructing right-sided lobe. Throughout the procedure we struggled with persistent hemorrhagic ooze. This is presumed secondary to his anticoagulation. We completed a total of 100,000 kilojoules and 13 minutes laser time. A decision was made to cease the procedure and to see if he is able to pass a voiding trial with some degree of opening. A repeat procedure will be required in the future and anticoagulation will need to be held for 5 days is originally instructed. A 22 Swedish 30 cc balloon Fisher catheter was placed over stylet into the bladder. Clear efflux was obtained. 30 cc was placed in the balloon and gentle traction was placed. A snap was used to hold tension once the patient will be moved and transported. Once transportation its finish this snap will be removed. A belladonna and opiate suppository was placed for postprocedure pain management. He tolerated procedure well was extubated in the operating and transferred in a stable condition to the recovery area. Pathology: None Drains: Fisher catheter
[2021-04-16] MEDS: Acetaminophen 325 MG TABLET 650 MG PO (11:55)
[2021-04-16] MEDS: oxyCODONE HCl Immed Release 5 MG TABLET PO (11:56)
== END 2021-04-16 14:35 | disposition home or self-care (01) ==
PROVIDERS: Visit Provider Urology
PROC: (CPT 52648; principal; 2021-04-16 09:40)
DX: N40.1 Benign prostatic hyperplasia with lower urinary tract symptoms (principal); N13.8 Other obstructive and reflux uropathy; R33.8 Other retention of urine; I10 Essential (primary) hypertension; I48.92 Unspecified atrial flutter; Z79.01 Long term (current) use of anticoagulants; Z86.73 Personal history of transient ischemic attack (TIA), and cerebral infarction without residual deficits; Z88.0 Allergy status to penicillin; Z79.899 Other long term (current) drug therapy
CPT/HCPCS: 52648; J1956; J2405; J3010

== ENCOUNTER → 2021-04-19 09:51 | Outpatient (BNVA) | payer MEDICARE, OTHER, SELFPAY | PROVIDERS: Visit Provider Urology | DX: N13.8 Other obstructive and reflux uropathy (principal) | CPT/HCPCS: 51700; 51798 ==

== ENCOUNTER 2021-04-20 12:38 | Outpatient (REF) | payer MEDICARE, OTHER, SELFPAY ==
--- NOTE | ~2021-04-20 | CT_ITS ---
EXAMINATION: CT SINUS WITHOUT CONTRAST CLINICAL INFORMATION: 75-year-old with sinus pain and dizziness. COMPARISON: None TECHNIQUE: Volumetric CT imaging of the paranasal sinuses was done with multiplanar reformatted reconstructions. This CT examination was performed using dose optimization techniques as appropriate, variously including the following: *Automated exposure control *Adjustment of mA and/or kV according to patient size (this includes techniques or standardized protocols for targeted exams where dose is matched to indication/reason for exam; i.e. extremities or head) *Use of iterative reconstruction technique DLP: 125 mGy-cm FINDINGS: Nasal Cavity: There is sinusoidal nasal septal deviation to the right anterosuperiorly and slightly to the left posterosuperiorly. There is evidence of a previous FESS procedure. Nodular soft tissue densities are seen within the superior nasal cavity, with opacification of the olfactory recesses bilaterally consistent with bilateral nasal polyposis. Correlate with direct visualization. Polyp on the left is situated along the posterior margin of the left OMC. There is deossification of the cribriform plate on both sides of the midline, likely reflecting chronic inflammatory deossification. The nasopharyngeal soft tissues appear unremarkable. Maxillary Sinuses: There is mucosal thickening in the left maxillary sinus, with thick, inspissated, aerosolized secretions with some fluid layering dependently. The left OMC is patent but lined by some mucosal thickening. Correlate with surgical history for any possible left medial maxillary fenestration which might be occluded on this exam. There is moderate mucosal thickening in the right maxillary sinus with a small retention cyst noted posteriorly with a patent right medial maxillary antrostomy. Bony miller are intact. Ethmoid Sinuses: There is partial opacification of the ethmoid sinus complex with evidence of at least a right-sided ethmoidectomy and possibly a left-sided ethmoidectomy which are partially occluded by what appear to be nasal polyps. The orbital miller and fovea ethmoidalis are intact. Frontal Sinuses: There are mild degrees of mucosal thickening in the frontal sinuses bilaterally. There is a 6 mm benign osteoma in the right frontal sinus. The frontal recesses are patent. Sphenoid Sinus: There is marked thickening of the sphenoid sinus bony miller which could be secondary to history of chronic sinusitis but may also be due to incomplete pneumatization of the sphenoid sinus. There are small retention cysts in the sphenoid sinus on both sides of the midline, and there is evidence of a previous left-sided sphenoid sinusostomy which is partially occluded by polyposis. The right sphenoid ostium and sphenoethmoidal recess are also occluded. The carotid canals are posterolateral and covered by bone. There are bilateral carotid ICA calcifications. Additional Findings: The visualized intracranial structures appear grossly unremarkable within the limitations of the exam. The visualized intraorbital soft tissue structures are within normal limits. The mastoids and middle ear cavities are unopacified. CT/CT sinus wo con IMPRESSION: 1. Sinusoidal nasal septal deviation, as described above, with evidence of a previous FESS procedure, with bilateral nasal polyposis and pansinus mucosal inflammatory changes, as detailed above. Right medial maxillary antrostomy is patent. Left medial maxillary antrostomy is partially occluded. 2. Deossification and/or erosion of the cribriform plate likely reflecting chronic inflammatory changes.
== END 2021-04-20 12:39 | disposition home or self-care (01) ==
LOC: HO.CT 12:38
PROVIDERS: Visit Provider Internal Medicine
DX: R42 Dizziness and giddiness (principal); R51.9 Headache, unspecified
CPT/HCPCS: 70486

== ENCOUNTER 2021-05-18 11:59 | Outpatient (REF) | payer MEDICARE, OTHER, SELFPAY ==
[2021-05-18 13:49] LABS: MANUAL DIFF FLAG NO
[2021-05-18 13:55] LABS: Basophils Percent Auto 0.6 % (0-2); Eosinophils Absolute Auto 0.1 X10*3/uL (0.0-0.4); Eosinophils Percent Auto 1.9 % (0-4); Hematocrit 36.6 % (42.0-52.0); Imm Gran Abs Auto 0.02 X10*3/uL (0.00-0.03); Imm Gran Pct Auto 0.4 % (0.0-0.4); Lymphocytes Absolute Auto 1.2 X10*3/uL (1.2-4.9); Lymphocytes Percent Auto 23.3 % (20-40); Mean Corpuscular HGB Conc 32.8 g/dl (31.0-36.0); Mean Corpuscular Hemoglobin 31.3 pg (27.0-33.0); Mean Corpuscular Volume 95.6 fL (80.0-98.0); Mean Platelet Volume 10.5 fL (9.4-12.4); Monocytes Absolute Auto 0.6 X10*3/uL (0.1-1.2); Monocytes Percent Auto 11.5 % (2-11); Neutrophils Absolute Auto 3.3 x10*3/uL (2.0-8.3); Neutrophils Percent Auto 62.3 % (45-73); Platelet Count 179 X10*3/uL (160-400); Red Blood Count 3.83 X10*6/uL (4.60-5.80); Red Cell Distribution Width 14.2 % (11.0-16.0); White Blood Count 5.2 X10*3/uL (4.8-10.8)
[2021-05-18 14:10] LABS: Appearance Urine HAZY; Color Urine RED; UACC Culture Trigger YES
[2021-05-18 14:11] LABS: Urine Blood 3+ (NEG)
[2021-05-18 14:19] LABS: RBC Urine TNTC /HPF (0)
[2021-05-18 14:22] LABS: Alanine Aminotransferase 16 U/L (0-40); Albumin Level 3.8 g/dL (3.5-5.0); Alkaline Phosphatase 99 U/L (39-117); Anion Gap 11 (12-20); Aspartate Amino Transferase 15 U/L (5-37); Bilirubin Total 0.9 mg/dL (0.0-1.0); Blood Urea Nitrogen 10 mg/dL (9-16); C Reactive Protein 0.07 mg/dL (< or = 0.50); Calcium 9.3 mg/dL (8.4-10.2); Carbon Dioxide 22 mmol/L (22-29); Chloride 111 mmol/L (96-108); Estimated Glomerular Filt Rate > 60; Glucose Random 95 mg/dL (60-115); Potassium 4.1 mmol/L (3.3-5.1); Sodium 140 mmol/L (135-145); Total Protein 6.3 g/dL (6.5-8.0)
== END 2021-05-18 12:00 | disposition home or self-care (01) ==
LOC: HO.10HDL 11:59
PROVIDERS: Visit Provider Internal Medicine
DX: R10.9 Unspecified abdominal pain (principal); R30.0 Dysuria; I10 Essential (primary) hypertension
CPT/HCPCS: 36415; 80053; 81001; 81003; 85025; 86140; 87086

== ENCOUNTER 2021-05-30 14:57 | Outpatient (REF) | payer MEDICARE, OTHER, SELFPAY ==
--- NOTE | ~2021-05-30 | US_ITS ---
EXAMINATION: US RETROPERITONEAL COMPLETE (RENAL) CLINICAL INFORMATION: Right flank pain, hematuria. COMPARISON: CT abdomen and pelvis without contrast 02/05/2021. TECHNIQUE: Real-time imaging of the kidneys and bladder. FINDINGS: RIGHT KIDNEY: 13.0 x 6.0 x 5.9 cm (SAG x AP x TRV). The kidney is normal in size, contour, and echogenicity. Renal cortical thickness is normal. No calculi or focal parenchymal lesions. No hydronephrosis. LEFT KIDNEY: 12.3 x 4.3 x 5.4 cm (SAG x AP x TRV). The kidney is normal in size, contour, and echogenicity. Renal cortical thickness is normal. No visible calculi. There are 2 small cysts interpolar region, larger 1.4 cm and smaller 1.0 cm. No additional imaging follow-up required. No hydronephrosis. BLADDER: Bladder is distended symmetrically and shows no focal wall thickening. There is a tiny diverticulum from the posterior bladder 1 cm on prevoid image and 0.5 cm on post void image. No bladder calculi or debris. Prevoid bladder volume is 164 mL. Post void bladder residual volume is 21 mL. No right ureteral jet obtained. There is no right hydronephrosis or caliectasis. Left ureteral jet demonstrated. The prostate is enlarged and causes nodular indentation at the bladder base. Prostate measures 8.7 x 6.1 x 7.3 cm (volume 201 mL). US/US retroperitoneal comp IMPRESSION: 1. No hydronephrosis or visible calculi. 2. Enlarged prostate, volume 201 mL. Post void bladder residual volume 21 mL.
[2021-05-30 15:57] LABS: Alanine Aminotransferase 36 U/L (0-40); Albumin Level 3.9 g/dL (3.5-5.0); Alkaline Phosphatase 102 U/L (39-117); Anion Gap 9 (12-20); Aspartate Amino Transferase 27 U/L (5-37); Bilirubin Total 0.4 mg/dL (0.0-1.0); Blood Urea Nitrogen 16 mg/dL (9-16); Calcium 9.7 mg/dL (8.4-10.2); Carbon Dioxide 27 mmol/L (22-29); Chloride 106 mmol/L (96-108); Estimated Glomerular Filt Rate > 60; Glucose Random 87 mg/dL (60-115); Potassium 4.5 mmol/L (3.3-5.1); Sodium 137 mmol/L (135-145); Total Protein 6.7 g/dL (6.5-8.0)
== END 2021-05-30 14:58 | disposition home or self-care (01) ==
LOC: HO.US 14:57
PROVIDERS: PCP Internal Medicine; Visit Provider Internal Medicine
DX: I10 Essential (primary) hypertension (principal); R10.31 Right lower quadrant pain; R31.9 Hematuria, unspecified
CPT/HCPCS: 36415; 76770; 80053; 86140

== ENCOUNTER → 2021-06-07 09:34 | Outpatient (BNVA) | payer MEDICARE, OTHER, SELFPAY | PROVIDERS: PCP Internal Medicine; Visit Provider Urology | DX: N40.1 Benign prostatic hyperplasia with lower urinary tract symptoms (principal); N13.8 Other obstructive and reflux uropathy; R97.20 Elevated prostate specific antigen [PSA] | CPT/HCPCS: 99212 ==

== ENCOUNTER 2021-07-18 07:58 | Outpatient (REF) | payer MEDICARE, OTHER, SELFPAY ==
[2021-07-18 11:11] LABS: PSA,Total (Free>4and<10) 2.68 ng/mL (0.00-4.00)
== END 2021-07-18 07:59 | disposition home or self-care (01) ==
LOC: HO.10HDL 07:58
PROVIDERS: Visit Provider Urology
DX: Z12.5 Encounter for screening for malignant neoplasm of prostate (principal); N13.8 Other obstructive and reflux uropathy; N40.1 Benign prostatic hyperplasia with lower urinary tract symptoms
CPT/HCPCS: 36415; 84153

== ENCOUNTER → 2021-07-24 08:43 | Outpatient (BNVA) | payer MEDICARE, OTHER, SELFPAY | PROVIDERS: PCP Internal Medicine; Visit Provider Urology | DX: N40.1 Benign prostatic hyperplasia with lower urinary tract symptoms (principal); N13.8 Other obstructive and reflux uropathy; R97.20 Elevated prostate specific antigen [PSA] | CPT/HCPCS: Q3014 ==

== ENCOUNTER → 2021-08-22 08:15 | Outpatient (BNVA) | payer MEDICARE, OTHER, SELFPAY | PROVIDERS: PCP Internal Medicine; Referring Provider Internal Medicine; Visit Provider Internal Medicine | DX: I48.92 Unspecified atrial flutter (principal); I83.93 Asymptomatic varicose veins of bilateral lower extremities; R00.1 Bradycardia, unspecified; G47.33 Obstructive sleep apnea (adult) (pediatric); Z86.73 Personal history of transient ischemic attack (TIA), and cerebral infarction without residual deficits | CPT/HCPCS: 99212 ==

== ENCOUNTER 2021-09-06 15:52 | Outpatient (REF) | payer MEDICARE, OTHER, SELFPAY ==
[2021-09-06 16:04] LABS: MANUAL DIFF FLAG NO
[2021-09-06 16:09] LABS: Basophils Percent Auto 0.3 % (0-2); Eosinophils Absolute Auto 0.1 X10*3/uL (0.0-0.4); Eosinophils Percent Auto 1.5 % (0-4); Hematocrit 44.7 % (42.0-52.0); Hemoglobin 14.6 g/dl (14.0-18.0); Imm Gran Abs Auto 0.01 X10*3/uL (0.00-0.03); Imm Gran Pct Auto 0.1 % (0.0-0.4); Lymphocytes Absolute Auto 1.5 X10*3/uL (1.2-4.9); Lymphocytes Percent Auto 17.4 % (20-40); Mean Corpuscular HGB Conc 32.7 g/dl (31.0-36.0); Mean Corpuscular Hemoglobin 30.7 pg (27.0-33.0); Mean Corpuscular Volume 94.1 fL (80.0-98.0); Mean Platelet Volume 9.9 fL (9.4-12.4); Monocytes Absolute Auto 1.2 X10*3/uL (0.1-1.2); Monocytes Percent Auto 14.3 % (2-11); Neutrophils Absolute Auto 5.8 x10*3/uL (2.0-8.3); Neutrophils Percent Auto 66.4 % (45-73); Platelet Count 197 X10*3/uL (160-400); Red Blood Count 4.75 X10*6/uL (4.60-5.80); Red Cell Distribution Width 13.2 % (11.0-16.0); White Blood Count 8.7 X10*3/uL (4.8-10.8)
[2021-09-06 16:32] LABS: Anion Gap 13 (12-20); Blood Urea Nitrogen 17 mg/dL (9-16); Calcium 9.5 mg/dL (8.4-10.2); Carbon Dioxide 24 mmol/L (22-29); Chloride 107 mmol/L (96-108); Estimated Glomerular Filt Rate > 60; Glucose Random 97 mg/dL (60-115); Potassium 4.5 mmol/L (3.3-5.1); Sodium 139 mmol/L (135-145); Uric Acid 6.6 mg/dL (3.4-7.0)
[2021-09-06 16:56] LABS: Erythrocyte Sedimentation Rate 11 MM/HR (0-15)
== END 2021-09-06 15:53 | disposition home or self-care (01) ==
LOC: HO.LAB 15:52
PROVIDERS: PCP Internal Medicine; Visit Provider Internal Medicine
DX: M79.672 Pain in left foot (principal); I10 Essential (primary) hypertension
CPT/HCPCS: 36415; 80048; 84550; 85025; 85652; 86140

== ENCOUNTER → 2021-12-07 08:26 | Outpatient (BNVA) | payer MEDICARE, OTHER, SELFPAY | PROVIDERS: PCP Internal Medicine; Visit Provider Urology | DX: N40.1 Benign prostatic hyperplasia with lower urinary tract symptoms (principal); N13.8 Other obstructive and reflux uropathy; R97.20 Elevated prostate specific antigen [PSA] | CPT/HCPCS: 51798; 99212 ==

== ENCOUNTER 2022-01-10 12:33 | Outpatient (REF) | payer MEDICARE, OTHER, SELFPAY ==
[2022-01-10 14:25] LABS: Prostate Specific Antigen 2.69 ng/mL (<0.05-4.0)
== END 2022-01-10 12:34 | disposition home or self-care (01) ==
LOC: HO.10HDL 12:33
PROVIDERS: Visit Provider Urology
DX: Z12.5 Encounter for screening for malignant neoplasm of prostate (principal); R97.20 Elevated prostate specific antigen [PSA]
CPT/HCPCS: 36415; 84153

== ENCOUNTER → 2022-01-24 08:04 | Outpatient (BNVA) | payer MEDICARE, OTHER, SELFPAY | PROVIDERS: PCP Internal Medicine; Visit Provider Urology | DX: R97.20 Elevated prostate specific antigen [PSA] (principal); N40.1 Benign prostatic hyperplasia with lower urinary tract symptoms; N13.8 Other obstructive and reflux uropathy; R33.8 Other retention of urine; Z79.899 Other long term (current) drug therapy | CPT/HCPCS: Q3014 ==

== ENCOUNTER → 2022-02-26 08:30 | Outpatient (BNVA) | payer MEDICARE, OTHER, SELFPAY | PROVIDERS: PCP Internal Medicine; Referring Provider Internal Medicine; Visit Provider Internal Medicine | DX: I48.92 Unspecified atrial flutter (principal); G45.9 Transient cerebral ischemic attack, unspecified; R00.1 Bradycardia, unspecified; G47.33 Obstructive sleep apnea (adult) (pediatric) | CPT/HCPCS: 93005; 99212 ==

== ENCOUNTER → 2022-03-04 11:22 | Outpatient (REF) | payer MEDICARE, OTHER, SELFPAY ==
--- NOTE | 2022-03-04 11:25 | HM_ITS ---
Conclusion: 1. Patient was monitored for total period of 3 days 2. Baseline rhythm is atrial flutter with average heart of 64 beats per minute with lower start of 29 beats per minute 3. Frequent slow ventricular response to atrial flutter 43% of time heart rate less than 60 beats per minute 4. No significant pauses noted greater than 3 seconds 5. Very rare PVCs noted 6. No patient reported events MTDD
== END ==
LOC: HO.CARD 11:22
PROVIDERS: PCP Internal Medicine; Visit Provider Internal Medicine
DX: I48.92 Unspecified atrial flutter (principal)
CPT/HCPCS: 93242

== ENCOUNTER 2022-04-03 11:25 | Outpatient (REF) | payer MEDICARE, OTHER, SELFPAY ==
[2022-04-03 13:44] LABS: MANUAL DIFF FLAG NO
[2022-04-03 13:50] LABS: Basophils Percent Auto 0.6 % (0-2); Eosinophils Absolute Auto 0.2 X10*3/uL (0.0-0.4); Hematocrit 44.5 % (42.0-52.0); Hemoglobin 14.5 g/dl (14.0-18.0); Imm Gran Abs Auto 0.01 X10*3/uL (0.00-0.03); Imm Gran Pct Auto 0.2 % (0.0-0.4); Lymphocytes Absolute Auto 1.3 X10*3/uL (1.2-4.9); Lymphocytes Percent Auto 26.3 % (20-40); Mean Corpuscular HGB Conc 32.6 g/dl (31.0-36.0); Mean Corpuscular Hemoglobin 31.3 pg (27.0-33.0); Mean Corpuscular Volume 95.9 fL (80.0-98.0); Mean Platelet Volume 10.3 fL (9.4-12.4); Monocytes Absolute Auto 0.5 X10*3/uL (0.1-1.2); Monocytes Percent Auto 10.9 % (2-11); Neutrophils Absolute Auto 2.9 x10*3/uL (2.0-8.3); Platelet Count 168 X10*3/uL (160-400); Red Blood Count 4.64 X10*6/uL (4.60-5.80); Red Cell Distribution Width 13.3 % (11.0-16.0); White Blood Count 4.9 X10*3/uL (4.8-10.8)
[2022-04-03 14:13] LABS: Alanine Aminotransferase 12 U/L (0-40); Albumin Level 4.1 g/dL (3.5-5.0); Alkaline Phosphatase 100 U/L (39-117); Anion Gap 15 (12-20); Aspartate Amino Transferase 17 U/L (5-37); Bilirubin Total 0.6 mg/dL (0.0-1.0); Blood Urea Nitrogen 19 mg/dL (9-16); Calcium 9.6 mg/dL (8.4-10.2); Carbon Dioxide 23 mmol/L (22-29); Chloride 108 mmol/L (96-108); Cholesterol 125 mg/dL; Estimated Glomerular Filt Rate > 60; Glucose Fasting 105 mg/dL (60-99); HDL Cholesterol 45 mg/dL; LDL Cholesterol Calculated 64 mg/dl; Potassium 4.6 mmol/L (3.3-5.1); Sodium 141 mmol/L (135-145); Total Protein 6.6 g/dL (6.5-8.0); Triglycerides 82 mg/dL
[2022-04-03 14:35] LABS: Prostate Specific Antigen Scr 3.05 ng/mL (<0.05-4.0)
== END 2022-04-03 11:26 | disposition home or self-care (01) ==
LOC: HO.10HDL 11:25
PROVIDERS: Visit Provider Internal Medicine
DX: I48.92 Unspecified atrial flutter (principal); I10 Essential (primary) hypertension; E78.00 Pure hypercholesterolemia, unspecified; K21.9 Gastro-esophageal reflux disease without esophagitis; N40.0 Benign prostatic hyperplasia without lower urinary tract symptoms; Z12.5 Encounter for screening for malignant neoplasm of prostate
CPT/HCPCS: 36415; 80053; 80061; 84153; 85025

== ENCOUNTER → 2022-07-09 09:05 | Outpatient (BNVA) | payer MEDICARE, OTHER, SELFPAY | PROVIDERS: PCP Internal Medicine; Referring Provider Internal Medicine; Visit Provider Internal Medicine | DX: I48.92 Unspecified atrial flutter (principal); R00.1 Bradycardia, unspecified; I10 Essential (primary) hypertension; G45.9 Transient cerebral ischemic attack, unspecified; G47.33 Obstructive sleep apnea (adult) (pediatric) | CPT/HCPCS: 99212 ==

== ENCOUNTER 2022-11-06 09:36 | Outpatient (REF) | payer MEDICARE, OTHER, SELFPAY ==
[2022-11-06 11:01] LABS: MANUAL DIFF FLAG NO
[2022-11-06 11:08] LABS: Basophils Percent Auto 0.8 % (0-2); Eosinophils Absolute Auto 0.2 X10*3/uL (0.0-0.4); Eosinophils Percent Auto 3.7 % (0-4); Hematocrit 45.8 % (42.0-52.0); Hemoglobin 14.9 g/dl (14.0-18.0); Imm Gran Abs Auto 0.02 X10*3/uL (0.00-0.03); Imm Gran Pct Auto 0.4 % (0.0-0.4); Lymphocytes Absolute Auto 1.5 X10*3/uL (1.2-4.9); Lymphocytes Percent Auto 30.5 % (20-40); Mean Corpuscular HGB Conc 32.5 g/dl (31.0-36.0); Mean Corpuscular Hemoglobin 31.4 pg (27.0-33.0); Mean Corpuscular Volume 96.4 fL (80.0-98.0); Mean Platelet Volume 10.5 fL (9.4-12.4); Monocytes Absolute Auto 0.7 X10*3/uL (0.1-1.2); Neutrophils Absolute Auto 2.5 x10*3/uL (2.0-8.3); Neutrophils Percent Auto 50.6 % (45-73); Platelet Count 177 X10*3/uL (160-400); Red Blood Count 4.75 X10*6/uL (4.60-5.80); Red Cell Distribution Width 13.2 % (11.0-16.0); White Blood Count 4.9 X10*3/uL (4.8-10.8)
[2022-11-06 12:10] LABS: Alanine Aminotransferase 16 U/L (0-40); Alkaline Phosphatase 104 U/L (39-117); Anion Gap 10 (12-20); Aspartate Amino Transferase 19 U/L (5-37); Bilirubin Total 1.1 mg/dL (0.0-1.0); Blood Urea Nitrogen 18 mg/dL (9-16); Calcium 9.5 mg/dL (8.4-10.2); Carbon Dioxide 23 mmol/L (22-29); Chloride 113 mmol/L (96-108); Cholesterol 123 mg/dL; Estimated Glomerular Filt Rate > 60; Glucose Random 101 mg/dL (60-115); HDL Cholesterol 44 mg/dL; LDL Cholesterol Calculated 65 mg/dl; Potassium 4.4 mmol/L (3.3-5.1); Sodium 142 mmol/L (135-145); Total Protein 6.8 g/dL (6.5-8.0); Triglycerides 71 mg/dL
== END 2022-11-06 09:37 | disposition home or self-care (01) ==
LOC: HO.10HDL 09:36
PROVIDERS: Visit Provider Internal Medicine
DX: I48.0 Paroxysmal atrial fibrillation (principal); I10 Essential (primary) hypertension; E78.00 Pure hypercholesterolemia, unspecified
CPT/HCPCS: 36415; 80053; 80061; 85025

== ENCOUNTER 2023-02-26 10:13 | Outpatient (REF) | payer MEDICARE, OTHER, SELFPAY | END 2023-02-26 10:14 | disposition home or self-care (01) | LOC: HO.10HDL 10:13 | PROVIDERS: Visit Provider Urology | DX: Z12.5 Encounter for screening for malignant neoplasm of prostate (principal); N40.1 Benign prostatic hyperplasia with lower urinary tract symptoms; N13.8 Other obstructive and reflux uropathy; R97.20 Elevated prostate specific antigen [PSA] | CPT/HCPCS: 36415; 84153 ==

== ENCOUNTER 2023-03-07 14:47 | Outpatient (AMB) | payer MEDICARE, OTHER, SELFPAY ==
--- NOTE | 2023-03-07 15:09 | MHC.OFFVIS ---
Intake Intake Visit Reasons: 1Y PSA/Elevated psa/BPH(set) Intake Note: Patient is Present for Follow Up PSA Urology Medication: Finasteride, Antibiotic Allergies: Penicillin Blood Thinners: Eliquis [facility] Allergies Penicillins Allergy (Mild, Verified 03/07/23 15:13) RASH HPI HPI Comments History of Present Illness Details Justin is a pleasant male. He is a patient of Dr Macias. He is seen for the following urologic condition -lower urinary tract symptoms - urinary retention PSA has risen when cut back to every other day Reissue daily Repeat PSA in 4 months VANCE 2+ normal Lower urinary tract symptoms Prior therapy includes terazosin 10 mg and finasteride 5 mg Finasteride every other day Laser prostatectomy May 2021 Variable PSA Range from 6.6-4.8 PSA 01/20 5.4 - 7.1 Free 30%, 07/24 2.7, 01/21 2.7, 04/23 3.1, 02/22 4.6 Current therapy finasteride monotherapy [facility] Medical History (Updated 07/09/22 @ 09:40 by Mark Knight MD) On anticoagulant therapy COVID-19 vaccine series completed Vertigo Sinusitis nasal MARÍA (obstructive sleep apnea) History of cardioversion Elevated PSA BPH with obstruction/lower urinary tract symptoms Sinus bradycardia Paroxysmal atrial flutter TIA (transient ischemic attack) Ascending aorta dilatation BPH (benign prostatic hyperplasia) GERD (gastroesophageal reflux disease) HTN (hypertension) Surgical History S/P myringotomy with insertion of tube Hx of nasal polypectomy History of left inguinal hernia repair H/O umbilical hernia repair H/O colonoscopy Family History Father Cardiovascular disease Mother No problems noted. Social History (Updated 07/09/22 @ 09:15 by Criss Castillo) Are you a primary lawn caretaker to a significant other at home: No Do you presently have visiting nurse or other home services: No Alcohol intake: never Patient Tobacco Use Status: Never used Tobacco Review of Systems Const Denies chills and Denies fever(s) Card Reports no additional complaints and Denies syncope Resp Denies cough GI Denies abdominal pain and Denies heartburn Reports as per HPI and Denies change in libido Neuro Denies syncope Psych Denies change in libido Endo Denies change in libido Physical Exam Const General: cooperative, healthy appearing, comfortable and no acute distress Orientation/consciousness: patient oriented x3 HEENT Face and sinus: Yes normal facial exam Mouth: moist mucous membranes Neck Neck: Yes normal visual inspection, Yes full ROM and Yes trachea midline Chest Chest palpation & inspection: normal inspection of the chest Resp Effort & Inspection: normal respiratory effort, able to speak in complete sentences and no respiratory distress GI Inspection: Yes normal to inspection Rectal Exam - Male: Yes normal sphincter tone and Yes prostate normal Male General Exam: Yes normal external exam Penis: normal penis and circumcised Meatus: meatus normal Scrotum: scrotum normal Testes: Testes normal Back/Spine/Pelvis Cervical Spine: normal cervical lordosis Thoracic/Lumbar Spine: thoracic and lumbar spine normal to inspection Skin General skin exam: no rashes or lesions noted Neuro General: patient oriented x3, gait normal, tone normal and moves all extremities Extrem General: Yes normal to inspection and Yes capillary refill normal Assessment & Plan Assessment & Plan (1) BPH w urinary obs/LUTS: Code(s): N40.1 - Benign prostatic hyperplasia with lower urinary tract symptoms; N13.8 - Other obstructive and reflux uropathy (2) BPH with obstruction/lower urinary tract symptoms: Code(s): N40.1 - Benign prostatic hyperplasia with lower urinary tract symptoms; N13.8 - Other obstructive and reflux uropathy (3) Elevated PSA: Code(s): R97.20 - Elevated prostate specific antigen [PSA] Plan 4 month follow-up PSA Restart finasteride daily Orders: Orders Prostate Specific Antigen 4 Months R97.20 - Elevated prostate specific antigen [PSA] Patient Instructions: Imaging studies, laboratory and physical exam results were discussed and reviewed in detail. No major barriers to patient understanding were identified. An opportunity to ask questions regarding the treatment plan was provided. All questions were answered. The patient expressed understanding and agreement with the above treatment plan. The patient is aware they should contact our office by phone for worsening of their current condition or the appearance of new urologic symptoms. Compliance is encouraged with any medications and followup testing that is ordered. It is a privilege to participate in the urologic care of your patient. If you have any questions or concerns regarding treatment for the above conditions, or other urologic issues, please do not hesitate to contact me. The office telephone contact is [phone]. This note is constructed using voice recognition software. While every effort has been made to ensure accuracy home health clinical liaison errors may have been included. Yours sincerely, Dr Jamal Martinez MD, [facility] - Urology Providers of Expert, Compassionate Care for the Genitourinary System Coding Level of Care Code Est Pt Level 4 (17138) Diagnoses BPH w urinary obs/LUTS N40.1; N13.8 Elevated PSA R97.20
== END 2023-03-07 15:22 | disposition home or self-care (01) ==
PROVIDERS: PCP Internal Medicine; Visit Provider Urology
DX: N40.1 Benign prostatic hyperplasia with lower urinary tract symptoms (principal); N13.8 Other obstructive and reflux uropathy; R97.20 Elevated prostate specific antigen [PSA]
CPT/HCPCS: 99213

== ENCOUNTER → 2023-03-07 14:47 | Outpatient (BNVA) | payer MEDICARE, OTHER, SELFPAY | PROVIDERS: Visit Provider Urology | DX: N40.1 Benign prostatic hyperplasia with lower urinary tract symptoms (principal); N13.8 Other obstructive and reflux uropathy; R97.20 Elevated prostate specific antigen [PSA] | CPT/HCPCS: 99212 ==

== ENCOUNTER 2023-05-14 11:27 | Outpatient (REF) | payer MEDICARE, OTHER, SELFPAY ==
[2023-05-14 13:24] LABS: MANUAL DIFF FLAG NO
[2023-05-14 13:28] LABS: Basophils Percent Auto 0.2 % (0-2); Eosinophils Absolute Auto 0.1 X10*3/uL (0.0-0.4); Eosinophils Percent Auto 2.2 % (0-4); Hematocrit 43.9 % (42.0-52.0); Hemoglobin 14.3 g/dl (14.0-18.0); Imm Gran Abs Auto 0.01 X10*3/uL (0.00-0.03); Imm Gran Pct Auto 0.2 % (0.0-0.4); Lymphocytes Absolute Auto 1.4 X10*3/uL (1.2-4.9); Lymphocytes Percent Auto 27.4 % (20-40); Mean Corpuscular HGB Conc 32.6 g/dl (31.0-36.0); Mean Corpuscular Hemoglobin 31.2 pg (27.0-33.0); Mean Corpuscular Volume 95.9 fL (80.0-98.0); Mean Platelet Volume 10.2 fL (9.4-12.4); Monocytes Absolute Auto 0.6 X10*3/uL (0.1-1.2); Monocytes Percent Auto 11.5 % (2-11); Neutrophils Absolute Auto 2.9 x10*3/uL (2.0-8.3); Neutrophils Percent Auto 58.5 % (45-73); Platelet Count 171 X10*3/uL (160-400); Red Blood Count 4.58 X10*6/uL (4.60-5.80)
[2023-05-14 13:45] LABS: Alanine Aminotransferase 18 U/L (0-40); Albumin Level 3.9 g/dL (3.5-5.0); Alkaline Phosphatase 98 U/L (39-117); Anion Gap 10 (12-20); Aspartate Amino Transferase 21 U/L (5-37); Bilirubin Total 0.8 mg/dL (0.0-1.0); Blood Urea Nitrogen 16 mg/dL (9-16); Calcium 9.7 mg/dL (8.4-10.2); Carbon Dioxide 24 mmol/L (22-29); Chloride 110 mmol/L (96-108); Cholesterol 123 mg/dL (<200); Estimated Glomerular Filt Rate > 60; Glucose Fasting 105 mg/dL (60-99); HDL Cholesterol 45 mg/dL (>40); LDL Cholesterol Calculated 58 mg/dL (<100); Potassium 4.2 mmol/L (3.3-5.1); Sodium 140 mmol/L (135-145); Total Protein 6.9 g/dL (6.5-8.0); Triglycerides 102 mg/dL (<150)
== END 2023-05-14 11:28 | disposition home or self-care (01) ==
LOC: HO.10HDL 11:27
PROVIDERS: Visit Provider Internal Medicine
DX: I48.0 Paroxysmal atrial fibrillation (principal); E78.00 Pure hypercholesterolemia, unspecified; I10 Essential (primary) hypertension; K21.9 Gastro-esophageal reflux disease without esophagitis
CPT/HCPCS: 36415; 80053; 80061; 85025

== ENCOUNTER 2023-07-29 12:01 | Outpatient (REF) | payer MEDICARE, OTHER, SELFPAY ==
[2023-07-29 14:30] LABS: Prostate Specific Antigen 4.28 ng/mL (<0.05-4.0)
== END 2023-07-29 12:02 | disposition home or self-care (01) ==
LOC: HO.10HDL 12:01
PROVIDERS: Visit Provider Urology
DX: R97.20 Elevated prostate specific antigen [PSA] (principal); Z12.5 Encounter for screening for malignant neoplasm of prostate
CPT/HCPCS: 36415; 84153

== ENCOUNTER 2023-08-05 09:16 | Outpatient (AMB) | payer MEDICARE, OTHER, SELFPAY ==
--- NOTE | 2023-08-05 09:17 | A.OFFVIS_ITS ---
Intake Intake Visit Reasons: 4m/PSA(set)Confirmed Intake Note: Patient is Present for Telephone Follow Up PSA Urology Med: Finasteride Antibiotic Allergy: Penicillins Blood Thinner: Eliquis Confirmed [facility] Reports No New Medications Allergies Penicillins Allergy (Mild, Verified 08/05/23 09:19) RASH Medication List - Last Reconciled 08/05/23 by Jamal Martinez MD apixaban (Eliquis) 5 mg PO BID atorvastatin 20 mg PO DAILY finasteride 5 mg PO DAILY 90 days lisinopril 20 mg PO DAILY omeprazole 20 mg PO DAILY HPI HPI Comments History of Present Illness Details Justin is a pleasant male. He is a patient of Dr Macias. He is seen for the following urologic condition -lower urinary tract symptoms - urinary retention Telemedicine Evaluation 15 min Consultation [employer] Erica Video attempted Back off finasteride every day PSA starting to fall Repeat in 6 months VANCE 2+ normal Lower urinary tract symptoms Prior therapy includes terazosin 10 mg and finasteride 5 mg Finasteride every other day Laser prostatectomy May 2021 Variable PSA Range from 6.6-4.8 PSA 01/20 5.4 - 7.1 Free 30%, 07/24 2.7, 01/21 2.7, 04/23 3.1, 02/22 4.6, 07/26 4.3 Current therapy finasteride monotherapy PFSH Medical History On anticoagulant therapy COVID-19 vaccine series completed Vertigo Sinusitis nasal MARÍA (obstructive sleep apnea) History of cardioversion Elevated PSA BPH with obstruction/lower urinary tract symptoms Sinus bradycardia Paroxysmal atrial flutter TIA (transient ischemic attack) Ascending aorta dilatation BPH (benign prostatic hyperplasia) GERD (gastroesophageal reflux disease) HTN (hypertension) Surgical History S/P myringotomy with insertion of tube Hx of nasal polypectomy History of left inguinal hernia repair H/O umbilical hernia repair H/O colonoscopy Family History Father Cardiovascular disease Mother No problems noted. Social History Are you a primary pediatric critical care nurse to a significant other at home: No Do you presently have visiting nurse or other home services: No Alcohol intake: never Patient Tobacco Use Status: Never used Tobacco Review of Systems Const All systems reviewed & are unremarkable except as noted in HPI and below Reports no additional complaints Resp Reports no additional complaints GI Reports no additional complaints Reports as per HPI Musc Reports no additional complaints Physical Exam Telemedicine evaluation Appropriate responses Regular breathing rate and rhythm HEENT Head: Yes normal to inspection Ears: hearing grossly normal bilaterally Eyes General: appearance normal, both eyes and all related structures Neck Neck: Yes normal visual inspection Chest Chest palpation & inspection: normal inspection of the chest Resp Effort & Inspection: normal respiratory effort and able to speak in complete sentences Assessment & Plan Assessment & Plan (1) BPH w urinary obs/LUTS: Code(s): N40.1 - Benign prostatic hyperplasia with lower urinary tract symptoms; N13.8 - Other obstructive and reflux uropathy (2) Urinary obstruction: Comment: January 2021 ER catheter placed Code(s): N13.9 - Obstructive and reflux uropathy, unspecified (3) Elevated PSA: Code(s): R97.20 - Elevated prostate specific antigen [PSA] Plan Six month follow-up PSA Orders: Orders PSA,Total (Free>4and<10) 6 Months R97.20 - Elevated prostate specific antigen [PSA] Patient Instructions: Imaging studies, laboratory and physical exam results were discussed and reviewed in detail. No major barriers to patient understanding were identified. An opportunity to ask questions regarding the treatment plan was provided. All questions were answered. The patient expressed understanding and agreement with the above treatment plan. The patient is aware they should contact our office by phone for worsening of their current condition or the appearance of new urologic symptoms. Compliance is encouraged with any medications and followup testing that is ordered. It is a privilege to participate in the urologic care of your patient. If you have any questions or concerns regarding treatment for the above conditions, or other urologic issues, please do not hesitate to contact me. The office telephone contact is [phone]. This note is constructed using voice recognition software. While every effort has been made to ensure accuracy riverboat master errors may have been included. Yours sincerely, Dr Jamal Martinez MD, [facility] - Urology Providers of Expert, Compassionate Care for the Genitourinary System Telehealth Telehealth Location of provider rendering services: practice address Location of patient: address on file Patient Identification confirmed using: Name, : Yes Telehealth method: video Patient verbally consented to treatment: Yes Patient verbally consented to billing insurance company: Yes Patient informed of any privacy concerns related to visit: Yes Coding Level of Care Code Tele Est Pt Level 3 (15578) Diagnoses BPH w urinary obs/LUTS N40.1; N13.8 Urinary obstruction N13.9 Elevated PSA R97.20
== END 2023-08-05 10:13 | disposition home or self-care (01) ==
LOC: HO.HUSH 09:16
PROVIDERS: PCP Internal Medicine; Visit Provider Urology
DX: N40.1 Benign prostatic hyperplasia with lower urinary tract symptoms (principal); N13.8 Other obstructive and reflux uropathy; N13.9 Obstructive and reflux uropathy, unspecified; R97.20 Elevated prostate specific antigen [PSA]
CPT/HCPCS: 99213

== ENCOUNTER → 2023-08-05 09:16 | Outpatient (BNVA) | payer MEDICARE, OTHER, SELFPAY | PROVIDERS: PCP Internal Medicine; Visit Provider Urology ==

== ENCOUNTER 2023-09-22 13:02 | Outpatient (AMB) | payer MEDICARE, OTHER, SELFPAY ==
--- NOTE | 2023-09-22 13:21 | A.OFFVIS_ITS ---
Vital Signs 09/22/23 13:22 Height 5 ft 11 in Weight 220 lb BMI 30.7 BP 122/68 Blood Pressure Location Lt brachial Position Sitting Pulse 77 Pulse Source Monitor Pulse Oximetry (%) 97 Intake Visit Reasons: 1 year follow-up with ekg Allergies Penicillins Allergy (Mild, Verified 08/05/23 09:19) RASH Medication List - Last Reconciled 09/22/23 by Mark Knight MD apixaban (Eliquis) 5 mg PO BID atorvastatin 20 mg PO DAILY finasteride 5 mg PO DAILY 90 days lisinopril 20 mg PO DAILY omeprazole 20 mg PO DAILY HPI Comments Details: Justin returns for follow-up regarding atrial flutter. To recall, in the past, he was admitted with symptoms of right-sided weakness and possible TIA. At that time, he was noted to have atrial flutter. He was then commenced on anticoagulation and low-dose beta-blockers. He was doing okay, but continued to feel some shortness of breath. Then underwent cardioversion. Due to significant baseline bradycardia, he was not on any medications for rate or rhythm control. Then, went back into atrial flutter with controlled rate. Overall, no new complaints. He states he is doing good. No difference between when he is in sinus or atrial flutter. [facility] Medical History On anticoagulant therapy COVID-19 vaccine series completed Vertigo Sinusitis nasal MARÍA (obstructive sleep apnea) History of cardioversion Elevated PSA BPH with obstruction/lower urinary tract symptoms Sinus bradycardia Paroxysmal atrial flutter TIA (transient ischemic attack) Ascending aorta dilatation BPH (benign prostatic hyperplasia) GERD (gastroesophageal reflux disease) HTN (hypertension) Surgical History S/P myringotomy with insertion of tube Hx of nasal polypectomy History of left inguinal hernia repair H/O umbilical hernia repair H/O colonoscopy Family History Father Cardiovascular disease Mother No problems noted. Social History Are you a primary palliative care nurse practitioner to a significant other at home: No Do you presently have visiting nurse or other home services: No Alcohol intake: never Patient Tobacco Use Status: Never used Tobacco Review of Systems Const Denies weakness ENT Denies dizziness Card Denies chest pain, Denies chest pain with activity, Denies syncope, Denies rapid heart rate, Denies pedal edema, Denies edema, Denies leg edema, Denies lightheadedness, Denies palpitations, Denies dyspnea, Denies dyspnea on exertion and Denies orthopnea Resp Denies cough, Denies dyspnea and Denies dyspnea on exertion GI Denies hematochezia and Denies change in stool character Musc Denies abnormal gait, Denies muscle cramps, Denies muscle weakness, Denies numbness, Denies radiating pain into limb and Denies tingling Neuro Denies abnormal gait, Denies dizziness, Denies syncope, Denies numbness, Denies tingling and Denies weakness Endo Denies palpitations Physical Exam Vital Signs: Last Vital Signs Pulse 77 09/22/23 13:22 BP 122/68 09/22/23 13:22 Pulse Ox 97 09/22/23 13:22 BMI result Body Mass Index 30.7 Const General: comfortable and no acute distress Orientation/consciousness: patient oriented x3 HEENT Other: Unremarkable Head: Yes normal to inspection Neck Neck: Yes normal visual inspection Chest Chest palpation & inspection: normal inspection of the chest Resp Auscultation: clear to auscultation bilaterally Cardio Palpation: normal PMI Heart sounds: S1 normal heart sound present, S2 normal heart sound present, no gallops, no murmurs and no rubs GI Palpation (GI): Soft to palpation Back/Spine/Pelvis Other: unremarkable Skin General skin exam: no rashes or lesions noted Neuro General: patient oriented x3 Extrem General: Yes normal to inspection Psych Mental Status: mental status grossly normal Office Procedures EKG Details: EKG with atrial flutter at a rate of 77/Min. [id number], Complete Assessment & Plan Assessment & Plan (1) Chronic atrial flutter: Code(s): I48.92 - Unspecified atrial flutter Category: Medical Plan: Rate controlled because of underlying conduction system disease. Has been cardioverted in the past but could not take medications due to significant sinus bradycardia. Will follow-up with another Holter in about 6 months' time. If any significant bradycardia episodes in the future, may need to consider pacemaker. We discussed about this today. Otherwise, continue anticoagulation without changes. (2) Sinus bradycardia: Code(s): R00.1 - Bradycardia, unspecified Category: Medical Plan: While in sinus, he does have significant bradycardia. No new concerns. (3) HTN (hypertension): Code(s): I10 - Essential (primary) hypertension Category: Medical Plan: Continue lisinopril. Well controlled. (4) TIA (transient ischemic attack): Code(s): G45.9 - Transient cerebral ischemic attack, unspecified Category: Medical Plan: MRI brain did not show any acute findings. 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 No significant disease in the carotids. Clinically, he has no functional deficit from this. Continue statins. LDL 58 mg/dL. (5) Obstructive sleep apnea: Code(s): G47.33 - Obstructive sleep apnea (adult) (pediatric) Category: Medical Plan: Has mild obstructive sleep apnea. However, not interested in any CPAP. If he can lose weight that will help. Orders: Orders CA echo transthoracic complete 6 Months I48.92 - Unspecified atrial flutter ECG 3 day holter monitor 6 Months I48.92 - Unspecified atrial flutter
[2023-09-22 13:22] VITALS: BP 122/68; PULSE 77; O2SAT 97; BMI 30.7
== END 2023-09-22 13:40 | disposition home or self-care (01) ==
LOC: HO.HCS 13:02
PROVIDERS: PCP Internal Medicine; Visit Provider Internal Medicine
DX: I48.92 Unspecified atrial flutter (principal); R00.1 Bradycardia, unspecified; I10 Essential (primary) hypertension; G45.9 Transient cerebral ischemic attack, unspecified; G47.33 Obstructive sleep apnea (adult) (pediatric)
CPT/HCPCS: 93010; 99214

== ENCOUNTER → 2023-09-22 13:02 | Outpatient (BNVA) | payer MEDICARE, OTHER, SELFPAY | PROVIDERS: PCP Internal Medicine; Visit Provider Internal Medicine | DX: I48.92 Unspecified atrial flutter (principal); R00.1 Bradycardia, unspecified; I10 Essential (primary) hypertension; G47.33 Obstructive sleep apnea (adult) (pediatric); Z86.73 Personal history of transient ischemic attack (TIA), and cerebral infarction without residual deficits | CPT/HCPCS: 93005; 99212 ==

== ENCOUNTER 2023-11-25 12:09 | Outpatient (REF) | payer MEDICARE, OTHER, SELFPAY ==
--- NOTE | ~2023-11-25 | XR_ITS ---
EXAMINATION: XR CHEST 2 VIEW CLINICAL INFORMATION: Cough COMPARISON: 06/29/2019 TECHNIQUE: PA and lateral views of the chest obtained. FINDINGS: The lungs are clear. There are no pleural effusions. The cardiomediastinal silhouette is normal. XR/XR chest 2V IMPRESSION: No acute cardiopulmonary disease.
== END 2023-11-25 12:10 | disposition home or self-care (01) ==
LOC: HO.XRAY 12:09
PROVIDERS: PCP Internal Medicine; Visit Provider Internal Medicine
DX: R05.9 Cough, unspecified (principal)
CPT/HCPCS: 71046

== ENCOUNTER 2024-02-03 07:51 | Outpatient (REF) | payer MEDICARE, OTHER, SELFPAY ==
[2024-02-03 09:20] LABS: PSA,Total (Free>4and<10) 4.59 ng/mL (0.00-4.00)
[2024-02-04 10:58] LABS: Free Prostate Spec Ag 1.2 ng/mL; Percent Free Prostate Spec Ag 21 % (calc) (>25); Prostate Specific Ag Total 5.7 ng/mL (< OR = 4.0)
== END 2024-02-03 07:52 | disposition home or self-care (01) ==
LOC: HO.LAB 07:51
PROVIDERS: PCP Internal Medicine; Visit Provider Urology
DX: R97.20 Elevated prostate specific antigen [PSA] (principal); Z12.5 Encounter for screening for malignant neoplasm of prostate
CPT/HCPCS: 36415; 84153; 84154

== ENCOUNTER 2024-02-06 08:39 | Outpatient (AMB) | payer MEDICARE, OTHER, SELFPAY ==
--- NOTE | 2024-02-06 08:42 | MHC.OFFVIS ---
Intake Visit Reasons: 6M Follow Up-PSA(Set) Intake Note: Patient is Present for Follow Up PSA Urology Medication: Finasteride Antibiotic Allergies:Penicllins Blood Thinners: Eliquis Recent PSA Completed 02/03/24 Budget Consultant Required: No Accompanied by: Self / Same As Patient Allergies Penicillins Allergy (Mild, Verified 02/06/24 08:45) RASH HPI Comments Details: Justin is a pleasant male. He is a patient of Dr Macias. He is seen for the following urologic condition -lower urinary tract symptoms - urinary retention PSA continues to crumble PCP T calculator suggests 10% chance high-risk Six-month follow-up ExoDX VANCE 2+ normal Lower urinary tract symptoms Prior therapy includes terazosin 10 mg and finasteride 5 mg Finasteride every other day Laser prostatectomy May 2021 Variable PSA Range from 6.6-4.8 PSA 01/20 5.4 - 7.1 Free 30%, 07/24 2.7, 01/21 2.7, 04/23 3.1, 02/22 4.6, 07/26 4.3, 02/23 4.6 21% Current therapy finasteride monotherapy [facility] Medical History On anticoagulant therapy COVID-19 vaccine series completed Vertigo Sinusitis nasal MARÍA (obstructive sleep apnea) History of cardioversion Elevated PSA BPH with obstruction/lower urinary tract symptoms Sinus bradycardia Paroxysmal atrial flutter TIA (transient ischemic attack) Ascending aorta dilatation BPH (benign prostatic hyperplasia) GERD (gastroesophageal reflux disease) HTN (hypertension) Surgical History S/P myringotomy with insertion of tube Hx of nasal polypectomy History of left inguinal hernia repair H/O umbilical hernia repair H/O colonoscopy Family History Father Cardiovascular disease Mother No problems noted. Social History Are you a primary adult care manager to a significant other at home: No Do you presently have visiting nurse or other home services: No Alcohol intake: never Patient Tobacco Use Status: Never used Tobacco Review of Systems Const Denies chills and Denies fever(s) Card Reports no additional complaints and Denies syncope Resp Denies cough GI Denies abdominal pain and Denies heartburn Reports as per HPI and Denies change in libido Neuro Denies syncope Psych Denies change in libido Endo Denies change in libido Physical Exam Const General: cooperative, healthy appearing, comfortable and no acute distress Orientation/consciousness: patient oriented x3 HEENT Face and sinus: Yes normal facial exam Mouth: moist mucous membranes Neck Neck: Yes normal visual inspection, Yes full ROM and Yes trachea midline Chest Chest palpation & inspection: normal inspection of the chest Resp Effort & Inspection: normal respiratory effort, able to speak in complete sentences and no respiratory distress GI Inspection: Yes normal to inspection Back/Spine/Pelvis Cervical Spine: normal cervical lordosis Thoracic/Lumbar Spine: thoracic and lumbar spine normal to inspection Skin General skin exam: no rashes or lesions noted Neuro General: patient oriented x3, gait normal, tone normal and moves all extremities Extrem General: Yes normal to inspection and Yes capillary refill normal Assessment & Plan Assessment & Plan (1) BPH w urinary obs/LUTS: Code(s): N40.1 - Benign prostatic hyperplasia with lower urinary tract symptoms; N13.8 - Other obstructive and reflux uropathy Category: Medical (2) Elevated PSA: Code(s): R97.20 - Elevated prostate specific antigen [PSA] Category: Medical Plan Six-month follow-up Orders: Orders PSA,Total (Free>4and<10) 6 Months R97.20 - Elevated prostate specific antigen [PSA] Medications: Refilled finasteride 5 mg PO DAILY 90 days 90 tabs 3RF N13.8 - Other obstructive and reflux uropathy, N40.1 - Benign prostatic hyperplasia with lower urinary tract symptoms, R33.9 - Retention of urine, unspecified Patient Instructions: Imaging studies, laboratory and physical exam results were discussed and reviewed in detail. No major barriers to patient understanding were identified. An opportunity to ask questions regarding the treatment plan was provided. All questions were answered. The patient expressed understanding and agreement with the above treatment plan. The patient is aware they should contact our office by phone for worsening of their current condition or the appearance of new urologic symptoms. Compliance is encouraged with any medications and followup testing that is ordered. It is a privilege to participate in the urologic care of your patient. If you have any questions or concerns regarding treatment for the above conditions, or other urologic issues, please do not hesitate to contact me. The office telephone contact is [phone]. This note is constructed using voice recognition software. While every effort has been made to ensure accuracy sheeting puller errors may have been included. Yours sincerely, Dr Jamal Martinez MD, [facility] - Urology Providers of Expert, Compassionate Care for the Genitourinary System Coding Level of Care Code Est Pt Level 3 (34884) Diagnoses BPH w urinary obs/LUTS N40.1; N13.8 Elevated PSA R97.20
== END 2024-02-06 08:57 | disposition home or self-care (01) ==
PROVIDERS: PCP Internal Medicine; Visit Provider Urology
DX: N40.1 Benign prostatic hyperplasia with lower urinary tract symptoms (principal); N13.8 Other obstructive and reflux uropathy; R97.20 Elevated prostate specific antigen [PSA]
CPT/HCPCS: 99213

== ENCOUNTER → 2024-02-06 08:39 | Outpatient (BNVA) | payer MEDICARE, OTHER, SELFPAY | PROVIDERS: PCP Internal Medicine; Visit Provider Urology | DX: N40.1 Benign prostatic hyperplasia with lower urinary tract symptoms (principal); N13.8 Other obstructive and reflux uropathy; R97.20 Elevated prostate specific antigen [PSA] | CPT/HCPCS: 99212 ==

== ENCOUNTER → 2024-03-16 07:58 | Outpatient (REF) | payer MEDICARE, OTHER, SELFPAY ==
--- NOTE | 2024-03-16 08:00 | HM_ITS ---
* Total monitoring time 3 days. * Underlying rhythm is atrial flutter. * Average ventricular rate 70/Min. * Rare ventricular ectopy with minimal burden. * Nighttime pauses noted but do not reach significance. * No patient markers or diary events. MTDD
--- NOTE | 2024-03-16 08:00 | CA_ITS ---
Transthoracic Echocardiogram Patient (Last, First, Middle): Justin Porter, Gender: Male Date of : 1945 Age: 78 Procedure Date: 03/16/2024 Procedure Type: Transthoracic Echocardiogram Location: OP Height: 180.34 cm Weight: 102.06 kg BSA: 2.22 m2 Heart Rate: bpm BP: 138 / 84 mmHg Hydrator: TO Referring MD: Mark Knight MD Symptoms: I48.92 - Unspecified atrial flutter Study Quality: Adequate ECG Rhythm: Atrial flutter Conclusions: - The left ventricular systolic function is low normal. The visually estimated ejection fraction is between 50-55%. - Severe focal hypertrophy of the basal septum. - The left atrium is severely dilated. - There is mild dilatation of the sinuses of Valsalva measuring 4.45 cm and mild dilatation of the ascending aorta measuring 4.20 cm. - No obvious valvular pathology seen on this study. Findings Left Ventricle Normal left ventricular cavity size. The left ventricular systolic function is low normal. The visually estimated ejection fraction is between 50-55%. There is no evidence of regional wall motion abnormalities. Diastolic function is indeterminate on the basis of available data. Severe focal hypertrophy of the basal septum. Right Ventricle Moderately increased right ventricular cavity size. There is normal right ventricular systolic function. Atria The left atrium is severely dilated. The right atrium is moderately dilated. Aortic Valve There is a normal trileaflet aortic valve. There is no aortic valve stenosis. There is trace (trivial) aortic valve regurgitation. Mitral Valve The mitral valve appears normal. There is mild mitral valve regurgitation. There is no mitral valve stenosis. Pulmonic Valve The pulmonic valve is likely normal. Tricuspid Valve There is mild tricuspid valve regurgitation. There is no evidence of pulmonary hypertension. Great Vessels There is mild dilatation of the sinuses of Valsalva measuring 4.45 cm and mild dilatation of the ascending aorta measuring 4.20 cm. Venous The inferior vena cava is mildly dilated and collapses greater than 50% with inspiration. Pericardium/Pleural There is no evidence of pericardial effusion. Prior Study Comparison Changes noted compared to prior study dated: 06/30/2019. LVEF slightly lower. Increase in ascending aortic size. Recommendations, Care & Conclusions No obvious valvular pathology seen on this study. Measurements 2D Linear Measurements IVSd: 1.75 0.6-0.9/0.6-1.0 cm LVIDd: 4.12 3.9-5.3/4.2-5.9 cm LVIDd Index: 1.86 2.4-3.2/2.2-3.1 cm/m2 LVIDs: 2.80 2.0-3.6 cm LVPWd: 0.82 0.7-1.1 cm LA Diam: 4.90 2.7-3.8/3.0-4.0 cm LAIDs Index: 2.21 1.5-2.3 cm/m2 LV Mass: 238.66 67-162/88-224 g LV Mass Index: 107.51 43-95/49-115 g/m2 LVOT Diam: 2.40 3.0+(-)1.3 cm 2D Systolic Function EF 4C: 52.10 >55% EF 2C: 49.90 >55% EF BiP: 52.00 >55% Mitral Valve MV Pk E: 0.78 MV PK A: 0.48 MV Decel Time: 156.00 E/A: 1.60 E'Lateral: 10.80 E'Medial: 6.16 E/E' Med: 12.70 E/E' Lat: 7.20 PHT: 46.00 MVA PHT: 4.78 Decel Amelia: 5.13 Aortic Valve AoV Pk Chidi: 0.99 AoV Pk Grad: 4.00 LVOT LVOT Pk Chidi: 1.05 LVOT Mn Chidi: 0.72 LVOT VTI: 0.25 LVOT Pk Grad: 4.00 LVOT Mn Grad: 2.00 LVOT Diam: 2.40 LVOT Area: 4.52 Diastolic Function MV Pk E: 0.78 MV Pk A: 0.48 E/A: 1.60 E'Medial: 6.16 E/E' Med: 12.70 E' Laterial: 10.80 E/E' Lat: 7.20 Right Ventricle TAPSE (mm): 20.30 TVS' Chidi: 11.70 Tricuspid Valve TR Pk Chidi: 2.08 TR Pk Grad: 17.00 RA Press: 8.00 RVSP: 25.00 Great Vessels Aorta Sinus of Valsalva: 4.45 2.0-3.[address] Ridge: 3.59 1.7-3.4 cm Ao Asc: 4.20 2.1-3.4 cm Ao Arch: 3.40 Updated in Other Vendor System with Status of Final Mark Knight MD electronically signed on 03/17/2024 11:11:07 AM with status of Final
== END ==
LOC: HO.CARD 07:58
PROVIDERS: PCP Internal Medicine; Visit Provider Internal Medicine
DX: I48.92 Unspecified atrial flutter (principal)
CPT/HCPCS: 93242; 93306

== ENCOUNTER → 2024-03-16 08:00 | Outpatient (BNV) | payer MEDICARE, OTHER, SELFPAY | PROVIDERS: PCP Internal Medicine; Visit Provider Internal Medicine | DX: I48.92 Unspecified atrial flutter (principal); I49.3 Ventricular premature depolarization | CPT/HCPCS: 93244; 93306 ==

== ENCOUNTER 2024-03-24 13:57 | Outpatient (AMB) | payer MEDICARE, OTHER, SELFPAY ==
[2024-03-24 14:05] VITALS: BP 130/72; PULSE 79; BMI 32.7
--- NOTE | 2024-03-24 14:05 | MHC.OFFVIS ---
Vital Signs 03/24/24 14:05 Height 5 ft 11 in Weight 234 lb 9.149 oz BMI 32.7 BP 130/72 Blood Pressure Location Lt brachial Position Sitting Pulse 79 Pulse Source Pulse Oximeter Intake Visit Reasons: F/U testing Marketing Information Analyst Required: No Accompanied by: Self / Same As Patient Allergies Penicillins Allergy (Mild, Verified 02/06/24 08:45) RASH Medication List - Last Reconciled 03/24/24 by Mark Knight MD apixaban (Eliquis) 5 mg PO BID atorvastatin 20 mg PO DAILY finasteride 5 mg PO DAILY 90 days lisinopril 20 mg PO DAILY omeprazole 20 mg PO DAILY HPI Comments Details: Justin returns for follow-up regarding atrial flutter. To recall, in the past, he was admitted with symptoms of right-sided weakness and possible TIA. At that time, he was noted to have atrial flutter. He was then commenced on anticoagulation and low-dose beta-blockers. He was doing okay, but continued to feel some shortness of breath. Then underwent cardioversion. Due to significant baseline bradycardia, he was not on any medications for rate or rhythm control. Then, went back into atrial flutter with controlled rate. No further med changes after that. He states he feels fine. When he walks up inclines, he has difficulty but it has been this way for so many years. Possible chronotropic incompetence but not clear. [facility] Medical History On anticoagulant therapy COVID-19 vaccine series completed Vertigo Sinusitis nasal MARÍA (obstructive sleep apnea) History of cardioversion Elevated PSA BPH with obstruction/lower urinary tract symptoms Sinus bradycardia Paroxysmal atrial flutter TIA (transient ischemic attack) Ascending aorta dilatation BPH (benign prostatic hyperplasia) GERD (gastroesophageal reflux disease) HTN (hypertension) Surgical History S/P myringotomy with insertion of tube Hx of nasal polypectomy History of left inguinal hernia repair H/O umbilical hernia repair H/O colonoscopy Family History Father Cardiovascular disease Mother No problems noted. Social History Are you a primary progressive care nurse to a significant other at home: No Do you presently have visiting nurse or other home services: No Alcohol intake: never Patient Tobacco Use Status: Never used Tobacco Review of Systems Const Denies chills, Denies fatigue, Denies fever(s), Denies frequent falls, Denies weakness, Denies weight gain and Denies weight loss ENT Denies dizziness Card Denies chest pain, Denies leg edema, Denies lightheadedness, Denies palpitations, Denies dyspnea and Denies dyspnea on exertion Resp Denies cough, Denies dyspnea and Denies dyspnea on exertion GI Denies hematochezia Musc Denies abnormal gait, Denies muscle weakness, Denies numbness, Denies radiating pain into limb and Denies tingling Neuro Denies abnormal gait, Denies dizziness, Denies frequent falls, Denies numbness, Denies tingling and Denies weakness Endo Denies fatigue and Denies palpitations Physical Exam Vital Signs: Last Vital Signs Pulse 79 03/24/24 14:05 BP 130/72 03/24/24 14:05 BMI result Body Mass Index 32.7 Const General: comfortable and no acute distress Orientation/consciousness: patient oriented x3 HEENT Other: Unremarkable Head: Yes normal to inspection Neck Neck: Yes normal visual inspection Chest Chest palpation & inspection: normal inspection of the chest Resp Auscultation: clear to auscultation bilaterally Cardio Palpation: normal PMI Heart sounds: S1 normal heart sound present, S2 normal heart sound present, no gallops, no murmurs and no rubs GI Palpation (GI): Soft to palpation Back/Spine/Pelvis Other: unremarkable Skin General skin exam: no rashes or lesions noted Neuro General: patient oriented x3 Extrem General: Yes normal to inspection Psych Mental Status: mental status grossly normal Assessment & Plan Assessment & Plan (1) Chronic atrial flutter: Code(s): I48.92 - Unspecified atrial flutter Category: Medical Plan: Rate controlled because of underlying conduction system disease. Has been cardioverted in the past but could not take medications due to significant sinus bradycardia. Continue anticoagulation without changes. Holter was performed last week but still pending. (2) HTN (hypertension): Code(s): I10 - Essential (primary) hypertension Category: Medical Plan: Continue lisinopril. Well controlled. (3) TIA (transient ischemic attack): Code(s): G45.9 - Transient cerebral ischemic attack, unspecified Category: Medical Plan: MRI brain did not show any acute findings. 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 No significant disease in the carotids. Clinically, he has no functional deficit from this. Continue statins. LDL 58 mg/dL. (4) Ascending aorta enlargement: Code(s): I77.89 - Other specified disorders of arteries and arterioles Category: Medical Plan: In the recent echocardiogram, sinus of Valsalva size 4.45 cm. Ascending aortic size 4.2 cm. Borderline dilatation but considering his body surface area not significantly enlarged. We can monitor. (5) Obstructive sleep apnea: Code(s): G47.33 - Obstructive sleep apnea (adult) (pediatric) Category: Medical Plan: Has mild obstructive sleep apnea. However, not interested in any CPAP. If he can lose weight that will help. We discussed about weight loss today. Coding Level of Care Code Est Pt Level 4 (95667) Diagnoses Chronic atrial flutter I48.92 HTN (hypertension) I10 TIA (transient ischemic attack) G45.9 Ascending aorta enlargement I77.89 Obstructive sleep apnea G47.33
== END 2024-03-24 14:21 | disposition home or self-care (01) ==
PROVIDERS: PCP Internal Medicine; Visit Provider Internal Medicine
DX: I48.92 Unspecified atrial flutter (principal); I10 Essential (primary) hypertension; G45.9 Transient cerebral ischemic attack, unspecified; I77.89 Other specified disorders of arteries and arterioles; G47.33 Obstructive sleep apnea (adult) (pediatric)
CPT/HCPCS: 99214

== ENCOUNTER → 2024-03-24 13:57 | Outpatient (BNVA) | payer MEDICARE, OTHER, SELFPAY | PROVIDERS: PCP Internal Medicine; Visit Provider Internal Medicine | DX: I48.92 Unspecified atrial flutter (principal); I77.89 Other specified disorders of arteries and arterioles; I10 Essential (primary) hypertension; G45.9 Transient cerebral ischemic attack, unspecified; G47.33 Obstructive sleep apnea (adult) (pediatric) | CPT/HCPCS: 99212 ==

== ENCOUNTER 2024-05-03 08:28 | Outpatient (REF) | payer MEDICARE, OTHER, SELFPAY ==
[2024-05-03 08:49] LABS: MANUAL DIFF FLAG NO
[2024-05-03 09:23] LABS: Basophils Percent Auto 0.4 % (0-2); Eosinophils Absolute Auto 0.2 X10*3/uL (0.0-0.4); Eosinophils Percent Auto 4.3 % (0-4); Hematocrit 43.9 % (42.0-52.0); Hemoglobin 14.5 g/dl (14.0-18.0); Imm Gran Abs Auto 0.02 X10*3/uL (0.00-0.03); Imm Gran Pct Auto 0.4 % (0.0-0.4); Lymphocytes Absolute Auto 1.7 X10*3/uL (1.2-4.9); Mean Corpuscular Hemoglobin 31.8 pg (27.0-33.0); Mean Corpuscular Volume 96.3 fL (80.0-98.0); Monocytes Absolute Auto 0.8 X10*3/uL (0.1-1.2); Monocytes Percent Auto 13.5 % (2-11); Neutrophils Absolute Auto 2.9 x10*3/uL (2.0-8.3); Neutrophils Percent Auto 51.4 % (45-73); Platelet Count 164 X10*3/uL (160-400); Red Blood Count 4.56 X10*6/uL (4.60-5.80); Red Cell Distribution Width 13.2 % (11.0-16.0); White Blood Count 5.6 X10*3/uL (4.8-10.8)
[2024-05-03 09:53] LABS: Alanine Aminotransferase 21 U/L (0-40); Albumin Level 3.8 g/dL (3.5-5.0); Alkaline Phosphatase 106 U/L (39-117); Anion Gap 10 (12-20); Aspartate Amino Transferase 26 U/L (5-37); Bilirubin Total 0.7 mg/dL (0.0-1.0); Blood Urea Nitrogen 16 mg/dL (9-16); Calcium 9.3 mg/dL (8.4-10.2); Carbon Dioxide 23 mmol/L (22-29); Chloride 113 mmol/L (96-108); Cholesterol 132 mg/dL (<200); Estimated Glomerular Filt Rate > 60; Glucose Fasting 108 mg/dL (60-99); HDL Cholesterol 43 mg/dL (>40); LDL Cholesterol Calculated 68 mg/dL (<100); Potassium 4.1 mmol/L (3.3-5.1); Sodium 142 mmol/L (135-145); Total Protein 6.6 g/dL (6.5-8.0); Triglycerides 109 mg/dL (<150)
== END 2024-05-03 08:29 | disposition home or self-care (01) ==
LOC: HO.LAB 08:28
PROVIDERS: PCP Internal Medicine; Visit Provider Internal Medicine
DX: I48.0 Paroxysmal atrial fibrillation (principal); I10 Essential (primary) hypertension; E78.00 Pure hypercholesterolemia, unspecified; K21.9 Gastro-esophageal reflux disease without esophagitis
CPT/HCPCS: 36415; 80053; 80061; 85025

== ENCOUNTER 2024-08-03 14:53 | Outpatient (REF) | payer MEDICARE, OTHER, SELFPAY ==
[2024-08-03 16:36] LABS: PSA,Total (Free>4and<10) 5.07 ng/mL (0.00-4.00)
[2024-08-04 13:39] LABS: Free Prostate Spec Ag 0.9 ng/mL; Percent Free Prostate Spec Ag 16 % (calc) (>25); Prostate Specific Ag Total 5.5 ng/mL (< OR = 4.0)
== END 2024-08-03 14:54 | disposition home or self-care (01) ==
LOC: HO.LAB 14:53
PROVIDERS: PCP Internal Medicine; Visit Provider Urology
DX: R97.20 Elevated prostate specific antigen [PSA] (principal); Z12.5 Encounter for screening for malignant neoplasm of prostate
CPT/HCPCS: 36415; 84153; 84154

== ENCOUNTER 2024-08-19 09:30 | Outpatient (AMB) | payer MEDICARE, OTHER, SELFPAY ==
--- NOTE | 2024-08-19 09:30 | A.OFFVIS_ITS ---
Intake Visit Reasons: 6M PSA/ExoDX Results Intake Note: Patient is present for 6M PSA/EXODX RESULTS Urology Medication:FINASTERIDE Antibiotic Allergy:PENICILLINS Blood Thinner:APIXABAN Outpatient Program Coordinator Required: No Allergies Penicillins Allergy (Mild, Verified 08/19/24 09:31) RASH HPI Comments Details: Justin is a pleasant male. He is a patient of Dr Macias. He is seen for the following urologic condition -lower urinary tract symptoms - urinary retention Telemedicine Evaluation 15 min Consultation Doximity Erica Video Continue slow rise in PSA Recommend prostate biopsy ExoDX score 50 VANCE 2+ normal Lower urinary tract symptoms Prior therapy includes terazosin 10 mg and finasteride 5 mg Finasteride every other day Laser prostatectomy May 2021 Variable PSA Range from 6.6-4.8 PSA 01/20 5.4 - 7.1 Free 30%, 07/24 2.7, 01/21 2.7, 04/23 3.1, 02/22 4.6, 07/26 4.3, 02/23 4.6 21%, 07/27 5.1 16% Current therapy finasteride monotherapy PFSH Medical History On anticoagulant therapy COVID-19 vaccine series completed Vertigo Sinusitis nasal MARÍA (obstructive sleep apnea) History of cardioversion Elevated PSA BPH with obstruction/lower urinary tract symptoms Sinus bradycardia Paroxysmal atrial flutter TIA (transient ischemic attack) Ascending aorta dilatation BPH (benign prostatic hyperplasia) GERD (gastroesophageal reflux disease) HTN (hypertension) Surgical History S/P myringotomy with insertion of tube Hx of nasal polypectomy History of left inguinal hernia repair H/O umbilical hernia repair H/O colonoscopy Family History Father Cardiovascular disease Mother No problems noted. Social History Are you a primary care partner to a significant other at home: No Do you presently have visiting nurse or other home services: No Alcohol intake: never Patient Tobacco Use Status: Never used Tobacco Telehealth Telehealth Telehealth Platform: DoxGlassesOff Location of provider rendering services: practice address Location of patient: address on file Patient Identification confirmed using: Name, : Yes Telehealth method: video Patient verbally consented to treatment: Yes Patient verbally consented to billing insurance company: Yes Patient informed of any privacy concerns related to visit: Yes Minutes spent on Phone/Video with Pt.: 15 Assessment & Plan Assessment & Plan (1) Elevated PSA: Code(s): R97.20 - Elevated prostate specific antigen [PSA] Category: Medical (2) BPH with obstruction/lower urinary tract symptoms: Code(s): N40.1 - Benign prostatic hyperplasia with lower urinary tract symptoms; N13.8 - Other obstructive and reflux uropathy Category: Medical Plan Risks and benefits regarding trans rectal ultrasound with prostate biopsy were discussed. Options of continued surveillance, no treatment and biopsy were offered. The risks include but are not limited to, urinary tract infection, sepsis, difficulty urinating, bleeding into the rectum or bladder that requires intervention and transfusion,and failure to diagnose prostate cancer. The patient understands the options and the risks involved. They wish to proceed. Printed information was provided to ensure he remains off anticoagulation for the appropriate length of time. He may require cardiology or PCP clearance. An antibiotic will be administered prior to, and following the procedure Medications: New levofloxacin take 1 tablet day before procedure, 1 tablet day of procedure and 1 tablet day after procedure 500 mg PO daily 3 days 3 tabs 0RF R97.20 - Elevated prostate specific antigen [PSA] Patient Instructions: This note is constructed using voice recognition software. While every effort has been made to ensure accuracy building superintendent errors may have been included. Imaging studies, laboratory and physical exam results were discussed and reviewed in detail. No major barriers to patient understanding were identified. An opportunity to ask questions regarding the treatment plan was provided. All questions were answered. The patient expressed understanding and agreement with the above treatment plan. The patient is aware they should contact our office by phone for worsening of their current condition or the appearance of new urologic symptoms. Compliance is encouraged with any medications and followup testing that is ordered. It is a privilege to participate in the urologic care of your patient. If you have any questions or concerns regarding treatment for the above conditions, or other urologic issues, please do not hesitate to contact me. The office telephone contact is [phone]. Sincerely, Dr Jamal Martinez MD, [facility] - Urology Compassionate Specialist Care for the Genitourinary System Coding Level of Care Code Tele Est Pt Level 3 (99904) Complex EM visit Add On G2211 Diagnoses Elevated PSA R97.20 BPH with obstruction/lower urinary tract symptoms N40.1; N13.8
== END 2024-08-19 10:06 | disposition home or self-care (01) ==
LOC: HO.HUSH 09:30
PROVIDERS: PCP Internal Medicine; Visit Provider Urology
DX: R97.20 Elevated prostate specific antigen [PSA] (principal); N40.1 Benign prostatic hyperplasia with lower urinary tract symptoms; N13.8 Other obstructive and reflux uropathy
CPT/HCPCS: 99213; G2211

== ENCOUNTER 2024-08-31 07:45 | Outpatient (REF) | payer MEDICARE, OTHER, SELFPAY ==
[2024-08-31] MEDS: Lidocaine HCl 1 % MPF 5 ML VIAL 10 ML SUBCUT (09:07)
--- NOTE | 2024-08-31 15:31 | W.PM.OPN ---
Operative Note Operative Note Date of Service: 08/31/24 Narrative: Preoperative diagnosis: Elevated PSA Postoperative diagnosis: Elevated PSA Procedure: 1. transrectal ultrasound measurement of prostate 2. transrectal ultrasound-guided pudendal nerve block 3. transrectal ultrasound-guided prostate biopsy 12 core Surgeon: Dr. Jamal Martinez Anesthetic: 10cc 1% lidocaine Indications for procedure: Elevated PSA - 5.5 16% Counselling: Technical aspects, risks and benefits of proposed procedure were discussed in full. All questions have been answered, written consent has been obtained and patient agrees to proceed. Procedure: The patient was brought into the procedure area and placed in a left lateral decubitus position. Patient identity confirmed. Perioperative antibiotics confirmed. Safety pause time out performed. VANCE was performed to dilate rectal sphincter Iodine 10cc with 60 cc gel was placed per rectum to reduce infection risk using a catheter tip syringe. 8 Hz Moise rectal end-fire ultrasound probe was placed transrectally without difficulty. The prostate was visualized. Seminal vesicles were normal. Prostate margins were clearly demarcated. Bladder was seen superiorly. No cystic structures were noted No calcifications were noted at the surgical margin The prostate was otherwise homogeneous in nature The prostate was measured in 3 dimensions Prostatic Width: 4.5 cm Prostatic Height: 5.5 cm Urethral Length: 5.5 cm Total volume equals : 135 ml An ultrasound-guided pudendal nerve block was performed using a 22 gauge spinal needle in the sagittal plane. 4 cc of 1% lidocaine placed at the junction of each seminal vesicle and 2 cc placed at the apex of the prostate. A 12 core biopsy was performed with 6 cores each side using an 18 gauge prostate biopsy gun. Two cores each were taken at the prostate apex, mid and base on each side. Cores were spaced between lateral and medial aspects. Each core was examined as placed on specimen foam as part of quality system manager to ensure a minimum 1 cm of length and minimal discontinuity. He tolerated the procedure well with minimal rectal bleeding. Blood pressure remained stable following procedure. He was able to ambulate to bathroom after 5 minutes. Printed instructions regarding antibiotic use and common adverse events from the procedure such as low-grade temperature, potential infection and bleeding were given. He understands to call the office or go to an emergency room should any of these events arise. Pathology: 12 core prostate biopsy. CPT code 02420: Transrectal ultrasound; this is a diagnostic test for evaluation of the prostate and surrounding structures, looking for abnormalities or suspicious areas worrisome for cancer CPT code 51548: Biopsy, prostate; needle or punch, single or multiple, any approach CPT code 79083: Ultrasonic guidance for needle placement (eg, biopsy, aspiration, injection, localization device), imaging supervision and interpretation
== END 2024-08-31 07:46 | disposition home or self-care (01) ==
LOC: HO.US 07:45
PROVIDERS: Visit Provider Urology
DX: C61 Malignant neoplasm of prostate (principal)
CPT/HCPCS: 55700; 76942; 88305; 88344; J2003

== ENCOUNTER → 2024-08-31 07:45 | Outpatient (BNV) | payer MEDICARE, OTHER, SELFPAY | PROVIDERS: Visit Provider Urology | DX: N40.0 Benign prostatic hyperplasia without lower urinary tract symptoms (principal) | CPT/HCPCS: 55700; 76872; 76942 ==

== ENCOUNTER 2024-09-07 09:59 | Emergency (ER) | payer MEDICARE, OTHER, SELFPAY ==
--- NOTE | ~2024-09-07 | CT_ITS ---
EXAMINATION: CT ABDOMEN PELVIS WITHOUT IV CONTRAST HISTORY: right flank pain COMPARISON: Comparison is made with the prior examination dated 02/05/2021. TECHNIQUE: CT scan of the abdomen and pelvis was performed without contrast using standard departmental protocol. Coronal and sagittal reformatted images were generated and reviewed. Oral contrast material was not administered at the request of the referring physician. This CT exam was performed with one or more of the following dose reduction techniques: automated exposure control, adjustment of the mA and/or kV according to patient size, use of iterative reconstruction technique. DLP: 712 mGy-cm FINDINGS: LOWER CHEST: There is a tiny 2 mm nodule at the left lung base. The visualized right lung base is clear. There is no pleural effusion. CARDIOVASCULATURE: The heart is normal in size. There is no pericardial effusion. LIVER: The liver is normal in size and contour. The liver has an unremarkable unenhanced appearance. GALLBLADDER / BILE DUCTS: The gallbladder is unremarkable. There is no intra or extrahepatic biliary ductal dilatation. SPLEEN: The spleen is normal in size and has an unremarkable unenhanced appearance. PANCREAS: The pancreas has an unremarkable unenhanced appearance. ADRENAL GLANDS: Unremarkable. KIDNEYS/RETROPERITONEUM: There is a punctate nonobstructing calculus in the interpolar region of the right kidney. There is a 2 mm nonobstructing calculus in the interpolar region of the left kidney.. There is no hydronephrosis or hydroureter. There is a 10 mm left renal cyst. LYMPH NODES: No retroperitoneal lymphadenopathy is identified in the abdomen or pelvis. VASCULATURE: The abdominal aorta demonstrates atherosclerotic calcification, but is normal in caliber. MESENTERY/PERITONEUM: No free fluid. No masses. There is no free intraperitoneal gas. STOMACH: The stomach is collapsed, limiting evaluation. SMALL BOWEL: The small bowel is normal in caliber. COLON: There is diverticulosis of the descending and sigmoid colon, without evidence of diverticulitis. APPENDIX: Normal. URINARY BLADDER/PELVIC ORGANS: The urinary bladder is collapsed, limiting evaluation. The prostate is markedly enlarged. BONES / SOFT TISSUES: There are fat-containing bilateral inguinal hernias. 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 CT/CT abdomen pelvis wo IV con IMPRESSION: 1. Bilateral nephrolithiasis as described, without evidence of obstruction. 2. Bilateral fat-containing inguinal hernias. 3. Markedly enlarged prostate. Electronically signed by: Alexsander Acosta MD 09/07/2024 01:42 PM EDT RP
[2024-09-07 10:15] VITALS: BP 170/109; PULSE 78; RESP 18; TEMP 36.6; O2SAT 97; BMI 32.1
--- NOTE | 2024-09-07 10:15 | ED_ITS ---
HPI - General Adult General Chief complaint: Abdominal Pain Stated complaint: Abd pain, sent from urgent care Time Seen by Provider: 09/07/24 12:38 Source: patient Mode of arrival: ambulatory Limitations: no limitations History of Present Illness ED Provider: Tessie Osman PA-C HPI narrative: 79 yo male with history of Aflutter on Eliquis, MARÍA, BPH, who presents to the ER from Urgent Care for evaluation of intermittent right sided flank pain for the last 1 week. he reports it feels like something is poking him. pains are usually a 3/10 and can radiate into the central abdomen. he has had mild nausea as well but no vomiting, constipation or diarrhea. He recently had a prostate biopsy 1 week ago. he went to urgent care today for evaluation. UA there showed traces of blood, no infection. he was instructed to come to the ER to r/o kidney stone. MD complaint: right flank pain Onset (ago): week(s) (1) Location: back Radiation: abdomen Severity: mild Severity scale (1-10): 3 Quality: stabbing Pain Consistency: intermittent Relieving factors: none Exacerbating factors: none Associated symptoms: nausea/vomiting Treatments prior to arrival: none Related Data Home Medications ?Medication ?Instructions ?Recorded ?Confirmed apixaban 5 mg tablet (Eliquis) 5 mg PO BID 04/11/20 03/24/24 atorvastatin 20 mg tablet 20 mg PO DAILY 04/11/20 03/24/24 lisinopril 20 mg tablet 20 mg PO DAILY 04/11/20 03/24/24 omeprazole 20 mg capsule,delayed 20 mg PO DAILY 04/11/20 03/24/24 release Previous Rx's ?Medication ?Instructions ?Recorded finasteride 5 mg tablet 5 mg PO DAILY 90 days #90 tabs 02/06/24 levofloxacin 500 mg tablet 500 mg PO daily 3 days #3 tabs 08/19/24 Allergies Allergy/AdvReac Type Severity Reaction Status Date / Time Penicillins Allergy Mild RASH Verified 09/07/24 10:17 Review of Systems 2 Review of Systems: Yes all other systems are reviewed and are negative [facility] Past Medical History Medical History On anticoagulant therapy COVID-19 vaccine series completed Vertigo Sinusitis nasal MARÍA (obstructive sleep apnea) History of cardioversion Elevated PSA BPH with obstruction/lower urinary tract symptoms Sinus bradycardia Paroxysmal atrial flutter TIA (transient ischemic attack) Ascending aorta dilatation BPH (benign prostatic hyperplasia) GERD (gastroesophageal reflux disease) HTN (hypertension) Surgical History S/P myringotomy with insertion of tube Hx of nasal polypectomy History of left inguinal hernia repair H/O umbilical hernia repair H/O colonoscopy Family History Family History Father Cardiovascular disease Mother No problems noted. Social History Social History Are you a primary hearing care practitioner to a significant other at home: No Do you presently have visiting nurse or other home services: No Alcohol intake: never Patient Tobacco Use Status: Never used Tobacco Physical Exam ED Vital Signs: Vital Signs - 24 hr 09/07/24 10:15 09/07/24 14:37 Temperature 98 F 97.2 F Pulse Rate 78 78 Respiratory Rate 18 16 Blood Pressure 170/109 H 150/90 H Pulse Oximetry 97 95 Oxygen Delivery Method Room Air Room Air BMI result Body Mass Index 32.1 Appearance: Alert. Oriented X3. No acute distress. Head: normocephalic, atraumatic. Eyes: Pupils equal, round and reactive to light. ENT: Pharynx normal. No tonsillar swelling or exudate. Neck: Normal inspection. Neck supple. CVS: Normal heart rate and rhythm. Pulses normal. Respiratory: No respiratory distress. Breath sounds normal. Abdomen: Soft and nontender. +BS x4. no CVA tenderness on the right. Skin: Skin warm and dry. Normal skin color. Normal skin turgor. No rashes. Extremities: No lower extremity edema. No joint swelling. Neuro/psych: Oriented X 3. No motor deficit. No sensory deficit. CN II-XII intact. Normal speech and cognition. Course Course Course Narrative: This is a rapid medical exam performed by River Cheung NP: Additional HPI, ROS, PE not included below will be deferred to primary provider. 09/07/24 10:15 Patient is a 79-year-old male with history of aflutter on Eliquis, HTN, ascending aorta enlargement, BPH, MARÍA presenting to the ED with complaint of right flank and lower abdominal pain presenting from UC. Sxs x 1 week. Urinary frequency, +blood on UA at urgent care. Nausea without vomiting. Diarrhea one week ago but none since. Plan: Labs, UA Medical Decision Making Medical Decision Making [facility] Narrative: 79 yo male presenting to the ER for evaluation of right flank pain, mild, intermittent for the last 1 week. +nausea, no vomiting. no urinary symptoms. has chronic microscopic hematuria. UA here without infection. exam reassuring. CT scan showing large prostate, had recent biopsy and has follow up call with Dr. Martinez Friday no obstructing kidney stones, he has bilateral small stones in the kidneys. results d/w patient. given his pain is mild, intermittent and no acute process seen today, he is stable for d/c home tylenol advised. return precautions discussed. comfortable d/c home Differential Diagnosis Differential Diagnoses: The differential diagnosis associated with the presentation includes ureteral stone, UTI, cholecystits, cholelithasis, biliary colic, renal colic, MSK pain Admission/Observation Consideration of admission/observation: Escalation of care including admission/observation considered Lab Data [facility] Lab Attestation statement: I reviewed the patient's lab results. no leukocytosis, no anemia, UA clear with trace blood, history of similar back in 202009/07/24 11:23 09/07/24 11:23 Labs: Lab Results 09/07/24 Range/Units 11:23 WBC 5.3 (4.8-10.8) X10*3/uL RBC 4.77 (4.60-5.80) X10*6/uL Hgb 15.2 (14.0-18.0) g/dl Hct 45.7 (42.0-52.0) % MCV 95.8 (80.0-98.0) fL MCH 31.9 (27.0-33.0) pg MCHC 33.3 (31.0-36.0) g/dl RDW 13.1 (11.0-16.0) % Plt Count 171 (160-400) X10*3/uL MPV 10.0 (9.4-12.4) fL Immature Gran % (Auto) 0.4 (0.0-0.4) % Neut % (Auto) 62.6 (45-73) % Lymph % (Auto) 23.8 (20-40) % Harnett % (Auto) 11.3 H (2-11) % Eos % (Auto) 1.3 (0-4) % Baso % (Auto) 0.6 (0-2) % Lymph # (Auto) 1.3 (1.2-4.9) X10*3/uL Harnett # (Auto) 0.6 (0.1-1.2) X10*3/uL Eos # (Auto) 0.1 (0.0-0.4) X10*3/uL Baso # (Auto) 0.0 (0.0-0.2) X10*3/uL Abs Immat Gran (auto) 0.02 (0.00-0.03) X10*3/uL Absolute Neuts (auto) 3.3 (2.0-8.3) x10*3/uL Absolute Nucleated RBC 0.000 (0.0-0.012) X10*3/uL Nucleated RBC % (auto) 0.0 (0.0-0.2) /100WBC Sodium 140 (135-145) mmol/L Potassium 4.5 (3.3-5.1) mmol/L Chloride 113 H (96-108) mmol/L Carbon Dioxide 24 (22-29) mmol/L Anion Gap 8 L (12-20) BUN 13 (9-16) mg/dL Creatinine 0.77 (0.5-1.4) mg/dL Estim Creat Clear Calc 98.7 Estimated GFR > 60 Random Glucose 111 (60-115) mg/dL Calcium 9.9 D (8.4-10.2) mg/dL Total Bilirubin 1.0 (0.0-1.0) mg/dL AST 24 (5-37) U/L ALT 14 (0-40) U/L Alkaline Phosphatase 96 (39-117) U/L Total Protein 6.9 (6.5-8.0) g/dL Albumin 4.2 (3.5-5.0) g/dL Urine Color Yellow Urine Appearance Clear Urine pH 6.0 (5.0-9.0) Ur Specific Grannis 1.010 (1.005-1.025) Urine Protein Negative (Neg-Trace) mg/dL Urine Glucose (UA) Negative (Negative) mg/dL Urine Ketones Negative (Negative) mg/dL Urine Blood Trace H (Negative) Urine Nitrite Negative (Negative) Ur Leukocyte Esterase Negative (Negative) Urine RBC 0-2 (0-2) /HPF Urine WBC 0-5 (0-5) /HPF Ur Squamous Epith Cells 0-2 (0-2) /HPF Urine Bacteria None Seen (None Seen) Hyaline Casts 0-2 (0-2) /LPF Independent Interpretation I performed an independent interpretation of an: CT Scan Interpretation: no ureteral stone appreciated or hydro Radiology Impression Discussion of test interpretation with radiology: I have reviewed the radiologist's reading. Radiologist Impression: CT/CT abdomen pelvis wo IV con IMPRESSION: 1. Bilateral nephrolithiasis as described, without evidence of obstruction. 2. Bilateral fat-containing inguinal hernias. 3. Markedly enlarged prostate. External Record Review External record reviewed: Prior outpatient labs and Prior outpatient radiology Prescription Management I considered prescription management with: Pain Medication and Antibiotic Chronic Conditions Patient?s care impacted by: Other (aflutter on eliquis) Critical Care Time Critical Care Time Critical Care Time: No Discharge Plan Discharge Clinical Impression: Acute flank pain, Microscopic hematuria Patient Disposition: Home, Self-Care Instructions: Flank Pain (ED) Additional Instructions: your lab workup today was reassuring your urine test showed trace amount of blood, no infection. you have had traces of blood in your urine for years. recommend following up with your urologist for this your liver and kidney functions were normal today your CT scan showed tiny stones within the kidneys, but no stones out of the kidneys. these do not cause symptoms and would not be causing your discomfort recommend tylenol and rest for now follow up with your doctor If you develop new or worsening symptoms call 911 or come back to the ER for further evaluation. Prescriptions: No Action omeprazole 20 mg capsule,delayed release(DR/EC) 20 mg PO DAILY lisinopril 20 mg tablet 20 mg PO DAILY atorvastatin 20 mg tablet 20 mg PO DAILY Eliquis 5 mg tablet 5 mg PO BID finasteride 5 mg tablet 5 mg PO DAILY 90 Days Qty: 90 3RF levofloxacin 500 mg tablet 500 mg PO daily 3 Days Qty: 3 0RF Rx Instructions: take 1 tablet day before procedure, 1 tablet day of procedure and 1 tablet day after procedure Referrals: Prashant Bhatti MD [Primary Care Provider] - Interventions: ED Discharge Assessment Last Done: 09/07/24 14:37 Discharge Date/Time: 09/07/24 14:46 Print Language: Malian
[2024-09-07 11:28] LABS: MANUAL DIFF FLAG NO
[2024-09-07 11:32] LABS: Appearance Urine Clear; Color Urine Yellow; Glucose Urine UA Negative (Negative); Leukocyte Esterase Urine Negative (Negative); Nitrite Urine Negative (Negative); UMIC TRIGGER UACC YES; Urine Blood Trace (Negative); Urine Ketones Negative (Negative); Urine Protein Negative (Neg-Trace)
[2024-09-07 11:35] LABS: Bacteria Urine None Seen (None Seen); Hyaline Casts Urine 0-2 /LPF (0-2); RBC Urine 0-2 /HPF (0-2); Squamous Epithelial Cell Urine 0-2 /HPF (0-2); WBC Urine 0-5 /HPF (0-5)
[2024-09-07 11:41] LABS: Basophils Percent Auto 0.6 % (0-2); Eosinophils Absolute Auto 0.1 X10*3/uL (0.0-0.4); Eosinophils Percent Auto 1.3 % (0-4); Hematocrit 45.7 % (42.0-52.0); Hemoglobin 15.2 g/dl (14.0-18.0); Imm Gran Abs Auto 0.02 X10*3/uL (0.00-0.03); Imm Gran Pct Auto 0.4 % (0.0-0.4); Lymphocytes Absolute Auto 1.3 X10*3/uL (1.2-4.9); Lymphocytes Percent Auto 23.8 % (20-40); Mean Corpuscular HGB Conc 33.3 g/dl (31.0-36.0); Mean Corpuscular Hemoglobin 31.9 pg (27.0-33.0); Mean Corpuscular Volume 95.8 fL (80.0-98.0); Monocytes Absolute Auto 0.6 X10*3/uL (0.1-1.2); Monocytes Percent Auto 11.3 % (2-11); Neutrophils Absolute Auto 3.3 x10*3/uL (2.0-8.3); Neutrophils Percent Auto 62.6 % (45-73); Platelet Count 171 X10*3/uL (160-400); Red Blood Count 4.77 X10*6/uL (4.60-5.80); Red Cell Distribution Width 13.1 % (11.0-16.0); White Blood Count 5.3 X10*3/uL (4.8-10.8)
[2024-09-07 11:53] LABS: Alanine Aminotransferase 14 U/L (0-40); Albumin Level 4.2 g/dL (3.5-5.0); Alkaline Phosphatase 96 U/L (39-117); Anion Gap 8 (12-20); Aspartate Amino Transferase 24 U/L (5-37); Blood Urea Nitrogen 13 mg/dL (9-16); Calcium 9.9 mg/dL (8.4-10.2); Carbon Dioxide 24 mmol/L (22-29); Chloride 113 mmol/L (96-108); Creatinine Clr Calc Pharmacy 98.7; Estimated Glomerular Filt Rate > 60; Glucose Random 111 mg/dL (60-115); Potassium 4.5 mmol/L (3.3-5.1); Sodium 140 mmol/L (135-145); Total Protein 6.9 g/dL (6.5-8.0)
[2024-09-07 14:37] VITALS: BP 150/90; PULSE 78; RESP 16; TEMP 36.2; O2SAT 95
== END 2024-09-07 14:46 | disposition home or self-care (01) ==
PROVIDERS: Registered Nurse Emergency; Emergency Provider Emergency Medicine; PCP Internal Medicine
DX: R10.9 Unspecified abdominal pain (principal); R31.29 Other microscopic hematuria; I10 Essential (primary) hypertension; I48.92 Unspecified atrial flutter; Z79.01 Long term (current) use of anticoagulants; Z79.899 Other long term (current) drug therapy
CPT/HCPCS: 36415; 74176; 80053; 81001; 85025; 99282; 99284

== ENCOUNTER → 2024-09-07 12:39 | Outpatient (BNV) | payer MEDICARE, OTHER, SELFPAY | PROVIDERS: Emergency Provider Emergency Medicine; PCP Internal Medicine; Visit Provider Radiology Diagnostic Radiology | DX: N20.0 Calculus of kidney (principal); K40.90 Unilateral inguinal hernia, without obstruction or gangrene, not specified as recurrent | CPT/HCPCS: 74176 ==

== ENCOUNTER 2024-09-15 09:53 | Outpatient (AMB) | payer MEDICARE, OTHER, SELFPAY ==
--- NOTE | 2024-09-15 10:00 | MHC.OFFVIS ---
Vital Signs 09/15/24 10:01 Height 5 ft 11 in Weight 231 lb 7.766 oz BMI 32.3 BP 128/68 Blood Pressure Location Lt brachial Position Sitting Pulse 79 Pulse Source Pulse Oximeter Intake Visit Reasons: 6m follow up Allergies Penicillins Allergy (Mild, Verified 09/07/24 10:17) RASH Medication List - Last Reconciled 09/15/24 by Mark Knight MD apixaban (Eliquis) 5 mg PO BID atorvastatin 20 mg PO DAILY finasteride 5 mg PO DAILY 90 days lisinopril 20 mg PO DAILY omeprazole 20 mg PO DAILY HPI Comments Details: Justin returns for follow-up regarding atrial flutter. To recall, in the past, he was admitted with symptoms of right-sided weakness and possible TIA. At that time, he was noted to have atrial flutter. He was then commenced on anticoagulation and low-dose beta-blockers. He was doing okay, but continued to feel some shortness of breath. Then underwent cardioversion. Due to significant baseline bradycardia, he was not on any medications for rate or rhythm control. Then, went back into atrial flutter with controlled rate. No further med changes after that. For the most part, he states he feels good. No specific concerns. Weight has gone up slightly. Exercise The patient experiences varying tolerance to exercise, particularly when walking up inclines. Some days he is able to maintain a steady pace, while on others he must slow down. [facility] Medical History On anticoagulant therapy COVID-19 vaccine series completed Vertigo Sinusitis nasal MARÍA (obstructive sleep apnea) History of cardioversion Elevated PSA BPH with obstruction/lower urinary tract symptoms Sinus bradycardia Paroxysmal atrial flutter TIA (transient ischemic attack) Ascending aorta dilatation BPH (benign prostatic hyperplasia) GERD (gastroesophageal reflux disease) HTN (hypertension) Surgical History S/P myringotomy with insertion of tube Hx of nasal polypectomy History of left inguinal hernia repair H/O umbilical hernia repair H/O colonoscopy Family History Father Cardiovascular disease Mother No problems noted. Social History Are you a primary insurance healthcare consultant to a significant other at home: No Do you presently have visiting nurse or other home services: No Alcohol intake: never Patient Tobacco Use Status: Never used Tobacco Review of Systems Const Denies weakness ENT Denies dizziness Card Denies chest pain, Denies chest pain with activity, Denies syncope, Denies rapid heart rate, Denies pedal edema, Denies edema, Denies leg edema, Denies lightheadedness, Denies palpitations, Denies dyspnea, Denies dyspnea on exertion and Denies orthopnea Resp Denies cough, Denies dyspnea and Denies dyspnea on exertion GI Denies hematochezia and Denies change in stool character Musc Denies abnormal gait, Denies muscle cramps, Denies muscle weakness, Denies numbness, Denies radiating pain into limb and Denies tingling Neuro Denies abnormal gait, Denies dizziness, Denies syncope, Denies numbness, Denies tingling and Denies weakness Endo Denies palpitations Physical Exam Vital Signs: Last Vital Signs Pulse 79 09/15/24 10:01 BP 128/68 09/15/24 10:01 BMI result Body Mass Index 32.3 Const General: comfortable and no acute distress Orientation/consciousness: patient oriented x3 HEENT Other: Unremarkable Head: Yes normal to inspection Neck Neck: Yes normal visual inspection Chest Chest palpation & inspection: normal inspection of the chest Resp Auscultation: clear to auscultation bilaterally Cardio Palpation: normal PMI Heart sounds: S1 normal heart sound present, S2 normal heart sound present, no gallops, no murmurs and no rubs GI Palpation (GI): Soft to palpation Back/Spine/Pelvis Other: unremarkable Skin General skin exam: no rashes or lesions noted Neuro General: patient oriented x3 Extrem General: Yes normal to inspection Psych Mental Status: mental status grossly normal Office Procedures EKG Details: EKG with atrial flutter with controlled rate at 79/Min. [id number], Complete Assessment & Plan Assessment & Plan (1) Chronic atrial flutter: Code(s): I48.92 - Unspecified atrial flutter Category: Medical Plan: Rate controlled because of underlying conduction system disease. Has been cardioverted in the past but could not take medications due to significant sinus bradycardia. Continue anticoagulation without changes. Per last Holter, underlying rhythm is atrial flutter with an average rate of 70/Min. (2) HTN (hypertension): Code(s): I10 - Essential (primary) hypertension Category: Medical Plan: Continue lisinopril. Well controlled. (3) TIA (transient ischemic attack): Code(s): G45.9 - Transient cerebral ischemic attack, unspecified Category: Medical Plan: MRI brain did not show any acute findings. 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 No significant disease in the carotids. Clinically, he has no functional deficit from this. Continue statins. LDL cholesterol in the 50s and 60s. (4) Ascending aorta enlargement: Code(s): I77.89 - Other specified disorders of arteries and arterioles Category: Medical Plan: In the recent echocardiogram, sinus of Valsalva size 4.45 cm. Ascending aortic size 4.2 cm. Borderline dilatation but considering his body surface area not significantly enlarged. We can monitor. (5) Obstructive sleep apnea: Code(s): G47.33 - Obstructive sleep apnea (adult) (pediatric) Category: Medical Plan: Has mild obstructive sleep apnea. However, not interested in any CPAP. If he can lose weight that will help, but his weight has actually gone up. Patient Instructions: - Maintain current health care regimen and continue monitoring blood pressure at home. - Focus on healthy diet and physical activity to assist in weight management. - Report any new or worsening symptoms, particularly related to exercise tolerance, promptly. - Continue routine medical care and adhere to all current medications. - Contact our office immediately if significant health changes occur before the next scheduled appointment. Coding Level of Care Code Est Pt Level 4 (79804) Complex EM visit Add On G2211 Diagnoses Chronic atrial flutter I48.92 HTN (hypertension) I10 TIA (transient ischemic attack) G45.9 Ascending aorta enlargement I77.89 Obstructive sleep apnea G47.33 CPT Codes EKG - CPT: 19694-[id number], Complete ([id number])
[2024-09-15 10:01] VITALS: BP 128/68; PULSE 79; BMI 32.3
== END 2024-09-15 10:18 | disposition home or self-care (01) ==
PROVIDERS: PCP Internal Medicine; Visit Provider Internal Medicine
DX: I48.92 Unspecified atrial flutter (principal); I10 Essential (primary) hypertension; G45.9 Transient cerebral ischemic attack, unspecified; I77.89 Other specified disorders of arteries and arterioles; G47.33 Obstructive sleep apnea (adult) (pediatric)
CPT/HCPCS: 93010; 99214; G2211

== ENCOUNTER → 2024-09-15 09:53 | Outpatient (BNVA) | payer MEDICARE, OTHER, SELFPAY | PROVIDERS: PCP Internal Medicine; Visit Provider Internal Medicine | DX: I48.92 Unspecified atrial flutter (principal); I10 Essential (primary) hypertension; I77.89 Other specified disorders of arteries and arterioles; G47.33 Obstructive sleep apnea (adult) (pediatric); Z99.89 Dependence on other enabling machines and devices; Z86.73 Personal history of transient ischemic attack (TIA), and cerebral infarction without residual deficits | CPT/HCPCS: 93005; 99212 ==

== ENCOUNTER 2024-09-16 10:20 | Outpatient (AMB) | payer MEDICARE, OTHER, SELFPAY ==
--- NOTE | 2024-09-16 10:21 | MHC.OFFVIS ---
Intake Visit Reasons: Prostate Biopsy results Intake Note: Patient is present for PROSTATE BIOPSY RESULTS Urology Medication:FINASTERIDE Antibiotic Allergy:PENICILLINS Blood Thinner:APIXABAN Radio Message Router Required: No Allergies Penicillins Allergy (Mild, Verified 09/16/24 10:21) RASH HPI Comments Details: Justin is a pleasant male. He is a patient of Dr Macias. 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, acinar type Histologic grade: [place] score: 4+3=7 Grade group: 3 (WENDY 30%) Number cores positive: 1 Total number of cores: 12 Periprostatic fat inv.: Not identified Seminal vesicle inv.: Not identified Perineural inv.: Not identified LVI: Not identified Lower urinary tract symptoms Prior therapy includes terazosin 10 mg and finasteride 5 mg Finasteride every other day Laser prostatectomy May 2021 Variable PSA Range from 6.6-4.8 PSA 01/20 5.4 - 7.1 Free 30%, 07/24 2.7, 01/21 2.7, 04/23 3.1, 02/22 4.6, 07/26 4.3, 02/23 4.6 21%, 07/27 5.1 16% Current therapy finasteride monotherapy [facility] Medical History On anticoagulant therapy COVID-19 vaccine series completed Vertigo Sinusitis nasal MARÍA (obstructive sleep apnea) History of cardioversion Elevated PSA BPH with obstruction/lower urinary tract symptoms Sinus bradycardia Paroxysmal atrial flutter TIA (transient ischemic attack) Ascending aorta dilatation BPH (benign prostatic hyperplasia) GERD (gastroesophageal reflux disease) HTN (hypertension) Surgical History S/P myringotomy with insertion of tube Hx of nasal polypectomy History of left inguinal hernia repair H/O umbilical hernia repair H/O colonoscopy Family History Father Cardiovascular disease Mother No problems noted. Social History Are you a primary patient care secretary to a significant other at home: No Do you presently have visiting nurse or other home services: No Alcohol intake: never Patient Tobacco Use Status: Never used Tobacco Review of Systems Const All systems reviewed & are unremarkable except as noted in HPI and below Reports no additional complaints Card Reports no additional complaints and Denies syncope Resp Reports no additional complaints GI Reports no additional complaints Reports as per HPI and Denies change in libido Musc Reports no additional complaints Neuro Denies syncope Psych Denies change in libido Endo Denies change in libido Physical Exam Telemedicine evaluation Appropriate responses Regular breathing rate and rhythm Const General: cooperative, healthy appearing, comfortable and no acute distress Orientation/consciousness: patient oriented x3 HEENT Head: Yes normal to inspection Ears: hearing grossly normal bilaterally Face and sinus: Yes normal facial exam Mouth: moist mucous membranes Eyes General: appearance normal, both eyes and all related structures Neck Neck: Yes normal visual inspection Chest Chest palpation & inspection: normal inspection of the chest Resp Effort & Inspection: normal respiratory effort and able to speak in complete sentences GI Inspection: Yes normal to inspection Back/Spine/Pelvis Cervical Spine: normal cervical lordosis Thoracic/Lumbar Spine: thoracic and lumbar spine normal to inspection Skin General skin exam: no rashes or lesions noted Neuro General: patient oriented x3, gait normal, tone normal and moves all extremities Extrem General: Yes normal to inspection and Yes capillary refill normal Telehealth Telehealth Telehealth Platform: [employer] Location of provider rendering services: practice address Location of patient: address on file Patient Identification confirmed using: Name, : Yes Telehealth method: video Patient verbally consented to treatment: Yes Patient verbally consented to billing insurance company: Yes Patient informed of any privacy concerns related to visit: Yes Minutes spent on Phone/Video with Pt.: 15 Assessment & Plan Assessment & Plan (1) Urinary obstruction: Comment: January 2021 ER catheter placed Code(s): N13.9 - Obstructive and reflux uropathy, unspecified Category: Medical (2) Hormone sensitive prostate cancer: Code(s): C61 - Malignant neoplasm of prostate; Z19.1 - Hormone sensitive malignancy status Category: Medical Plan 4m f/u PSA Orders: Orders PSA,Total (Free>4and<10) 4 Months C61 - Malignant neoplasm of prostate, Z19.1 - Hormone sensitive malignancy status Patient Instructions: This note is constructed using voice recognition software. While every effort has been made to ensure accuracy director of consumer marketing errors may have been included. Imaging studies, laboratory and physical exam results were discussed and reviewed in detail. No major barriers to patient understanding were identified. An opportunity to ask questions regarding the treatment plan was provided. All questions were answered. The patient expressed understanding and agreement with the above treatment plan. The patient is aware they should contact our office by phone for worsening of their current condition or the appearance of new urologic symptoms. Compliance is encouraged with any medications and followup testing that is ordered. It is a privilege to participate in the urologic care of your patient. If you have any questions or concerns regarding treatment for the above conditions, or other urologic issues, please do not hesitate to contact me. The office telephone contact is [phone]. Sincerely, Dr Jamal Martinez MD, [facility] - Urology Compassionate Specialist Care for the Genitourinary System Coding Level of Care Code Tele Est Pt Level 4 (88815) Complex EM visit Add On G2211 Diagnoses Urinary obstruction N13.9 Hormone sensitive prostate cancer C61; Z19.1
== END 2024-09-16 13:49 | disposition home or self-care (01) ==
LOC: HO.HUSH 10:20
PROVIDERS: PCP Internal Medicine; Visit Provider Urology
DX: N13.9 Obstructive and reflux uropathy, unspecified (principal); C61 Malignant neoplasm of prostate; Z19.1 Hormone sensitive malignancy status
CPT/HCPCS: 99214; G2211

== ENCOUNTER → 2024-09-16 10:20 | Outpatient (BNVA) | payer MEDICARE, OTHER, SELFPAY | PROVIDERS: PCP Internal Medicine; Visit Provider Urology | DX: Z13.89 Encounter for screening for other disorder (principal) ==

== ENCOUNTER 2024-11-03 10:00 | Outpatient (AMB) | payer MEDICARE, OTHER, SELFPAY ==
[2024-11-03 09:54] VITALS: BP 130/82; PULSE 77; TEMP 36.6; O2SAT 96; BMI 33.2
--- NOTE | 2024-11-03 09:54 | A.OFFPC_ITS ---
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 Required: No Accompanied by: Self / Same As Patient Allergies Penicillins Allergy (Mild, Verified 11/03/24 10:17) RASH Medication List - Last Reconciled 11/03/24 by Prashant Bhatti MD apixaban (Eliquis) 5 mg PO BID atorvastatin 20 mg PO DAILY finasteride 5 mg PO DAILY 90 days lisinopril 20 mg PO DAILY omeprazole 20 mg PO DAILY Tobacco use date assessed: 11/03/24 Fall risk assessment: No Falls in past year Last assessed Fall Risk: 11/03/24 Dental Screening Dental Screen Date: 11/03/24 Did you have a dental visit in the last 12 months?: Yes Did you have a dental problem in the last 6 months where you did not have access to dental care?: No PFSH Medical History On anticoagulant therapy COVID-19 vaccine series completed Vertigo Sinusitis nasal MARÍA (obstructive sleep apnea) History of cardioversion Elevated PSA BPH with obstruction/lower urinary tract symptoms Sinus bradycardia Paroxysmal atrial flutter TIA (transient ischemic attack) Ascending aorta dilatation BPH (benign prostatic hyperplasia) GERD (gastroesophageal reflux disease) HTN (hypertension) Surgical History S/P myringotomy with insertion of tube Hx of nasal polypectomy History of left inguinal hernia repair H/O umbilical hernia repair H/O colonoscopy (~02/05/17) Family History Father Cardiovascular disease Mother No problems noted. Social History Housing: House Are you a primary overnight caregiver to a significant other at home: No Do you presently have visiting nurse or other home services: No Alcohol intake: never Patient Tobacco Use Status: Never used Tobacco e-Cigarette/Vaping Use: Never Used service: No Current occupational status: retired Cognitive needs: No Hearing needs: No Vision needs: No Questionnaire PHQ-9 Over the last 2 weeks, how often have you been bothered by any of the following problems? 1. Little interest or pleasure in doing things: not at all 2. Feeling down, depressed, or hopeless: not at all 3. Trouble falling or staying asleep, or sleeping too much: not at all 4. Feeling tired or having little energy: not at all 5. Poor appetite or overeating: not at all 6. Feeling bad about yourself - or that you are a failure or have let yourself or your family down: not at all 7. Trouble concentrating on things, such as reading the newspaper or watching television: not at all 8. Moving or speaking so slowly that other people could have noticed. Or the opposite - being so fidgety or restless that you have been moving around a lot more than usual: not at all 9. Thoughts that you would be better off or of hurting yourself in some way: not at all Total score: 0 Depression Screening Interpretation: Negative Depression Screening Done: Yes Source: Developed by Drs. Alexsander Brown, Mame Jurado, Db Colin and colleagues, with an educational michelle from [employer]. Thrive Questionnaire Date Thrive assessed: 11/03/24 I am a: Patient Within the past 12 months, did the food you bought not last and you didn't have the money to get more?: Never true Within the past 12 months, did you worry whether your food would run out before you got money to buy more?: Never true Do you have trouble paying for medicines?: No Do you have trouble getting transportation to medical appointments?: No Do you have trouble paying your heating and electricity bill?: No Do you have trouble taking care of your child, family member or friend?: No Do you have trouble with day-to-day activities such as bathing, preparing meals, shopping, managing finances, etc.?: No Are you currently unemployed and looking for a job?: No Are you interested in more education?: No Currently or been in a relationship where the following occur: No concerns reported THRIVE Score: 0 AUDIT C Alcohol Use Questionnaire (AUDIT-C) 1. How often do you have a drink containing alcohol?: Never 3. How often do you have six or more drinks on one occasion?: Never Total Score: 0 LUIZA-7 AMB Questionnaire LUIZA-7 Date LUIZA - 7 assessed: 11/03/24 Feeling nervous, anxious, or on edge: 0 = Not at all Not being able to stop or control worryin = Not at all Worrying too much about different things: 0 = Not at all Trouble relaxin = Not at all Being so restless that it is hard to sit still: 0 = Not at all Becoming easily annoyed or irritable: 0 = Not at all Feeling afraid as if something awful might happen: 0 = Not at all Total LUIZA-7 score (0-4 normal; 5-9 mild; 10-14 moderate; 15-21 severe): 0 Source: Developed by Drs. Alexsander Brown, Mame Jurado, Db Colin and colleagues, with an educational michelle from [employer]. Physical exam (Primary Care) Vital Signs: Last Vital Signs Temp 97.8 F 11/03/24 09:54 Pulse 77 11/03/24 09:54 BP 130/82 11/03/24 09:54 Pulse Ox 96 11/03/24 09:54 Oxygen Delivery Method Room Air 11/03/24 09:54 BMI result Body Mass Index 33.2 Tobacco/Smoking Status: Tobacco use Status Tobacco use date assessed 11/03/24 11/03/24 09:55 Patient Tobacco Use Status Never used Tobacco 11/03/24 09:55 e-Cigarette/Vaping Use Never Used 11/03/24 09:55 PHQ-9: PHQ-9 Score PHQ-9: Total score 0 11/03/24 10:09 Depression Screening Interpretation: Negative Thrive Assessment: Date of Thrive Assessment Date Thrive assessed 11/03/24 11/03/24 09:55 Currently or been in a relationship where the following occur: No concerns reported Advance Care Planning discussion: Exists, not on file Date of discussion: 11/03/24 Who was present: Pt Forms completed: Health Care Proxy Time spent: 1-15 minutes, not on file Actual minutes spent: 5 Coding Level of Care Code New Pt Level 4 (49379) Complex EM visit Add On G2211 Diagnoses HTN (hypertension) I10 Paroxysmal atrial flutter I48.92 Additional Codes Vital Signs *Quality* - Advance Care Planning discussion: Exists, not on file ([id number]) Vital Signs *Quality* - Time spent: 1-15 minutes, not on file ([id number]) Assessment & Plan Assessment & Plan (1) HTN (hypertension): Code(s): I10 - Essential (primary) hypertension Category: Medical Plan: BP well controlled. Continue meds at same dosage (2) Paroxysmal atrial flutter: Code(s): I48.92 - Unspecified atrial flutter Category: Medical Plan: In Sinus rhythm. Continue the anticoagulants Plan History of Present Illness - The patient is a 79 year old male presenting for a wellness visit and medication refills. - History of hyperlipidemia with cholesterol levels not completed in recent bloodwork. - Reports a laceration to the left hand from clipping wheat, noted improvement with self-care. - Previous episode of back pain leading to urgent care visit and CT scan, which was negative for significant findings. - Notable history of hernia without current symptoms. 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 - Actively involved in taking care of four grandchildren for the past 15 years. - Current lifestyle includes driving. Review of Systems - General: Denies any current health concerns. - Vision: Reports good vision, able to drive. - Skin: Reports minor laceration on left hand, currently healing. - Musculoskeletal: Reports past back pain episode treated at urgent care. - Gastrointestinal: Denies symptoms, continues to take medications as prescribed. Physical Exam General: Cooperative and healthy appearing Nutritional Appearance: Well nourished Orientation/consciousness: Patient oriented x3 Limitations: No limitations Head: Normal to inspection General: Appearance normal, both eyes and all related structures Neck: Normal visual inspection Chest: Normal palpation of entire chest wall Respiratory: Breath sounds clear, no issues noted. ormal respiratory effort Neurology: Patient oriented x3 Results - Labs: Bloodwork completed; cholesterol levels not assessed. - Imaging: CT scan previously conducted for back pain, results normal. Plan 1. Hyperlipidemia - Cholesterol levels will be tested at next appointment. 2. Left Hand Injury - Continue covering the wound with Band-Aids for proper healing. 3. Back Pain - Previous CT scan showed no concerning findings; monitoring continues. 4. Hernia - No treatment required if asymptomatic. Discussion Notes I discussed with Mr. Porter the plan to monitor his cholesterol levels, which will be examined in the next appointment. We reviewed the care for his left hand injury, confirming that it appears to be healing well. I will ensure his medication refills for omeprazole and atorvastatin are sent to his pharmacy for continuing management. We agreed on maintaining vigilance with any new health concerns or changes in symptoms associated with his known hernia. Advanced directives and healthcare proxy arrangements were confirmed to be in place. Recommendations for any future tests hinge on results from today?s evaluations and patient reports. Patient Instructions - Continue using Band-Aids on your left hand injury to protect the healing process. - Refills for omeprazole and atorvastatin will be sent to your pharmacy. - Watch for any signs of increased pain or changes in your condition and report them as needed. - Return for your next visit to discuss cholesterol screening. - Maintain driving and lifestyle activities as tolerated. Medications: New atorvastatin 20 mg PO DAILY 90 tabs 1RF omeprazole 20 mg PO DAILY 90 caps 1RF
== END 2024-11-03 10:26 | disposition home or self-care (01) ==
LOC: HO.HMCHD 10:01
PROVIDERS: PCP Internal Medicine; Visit Provider Internal Medicine
DX: I10 Essential (primary) hypertension (principal); I48.92 Unspecified atrial flutter; Z00.00 Encounter for general adult medical examination without abnormal findings

== ENCOUNTER → 2024-11-03 10:00 | Outpatient (BNVA) | payer MEDICARE, OTHER, SELFPAY | PROVIDERS: PCP Internal Medicine; Visit Provider Internal Medicine | DX: I10 Essential (primary) hypertension (principal); I48.92 Unspecified atrial flutter | CPT/HCPCS: 99202 ==

== ENCOUNTER 2024-12-30 09:57 | Outpatient (REF) | payer MEDICARE, OTHER, SELFPAY ==
--- OUTSIDE RECORDS SUMMARY | 2024-12-30 10:35 | XMS_ITS | Patient Health Record ---
Author Organization [facility] Address [address] [place] [address] Care Team Providers Care Utility Bill Collection Clerk Name Role Phone Gilberto (RETIRED) Adin GUTIÉRREZ Primary Care Provide Sebastián Herrera Jr Unavailable Allergies Allergen (clinical drug ingredient) Drug/Non Drug Allergy documented on EMR Reaction Allergy Type Onset Date Status Penicillin Unknown Drug Allergy Active Reason For Referral No Information Medications Medication SIG (Take, Route, Frequency, Duration) Notes Start Date End Date Status Omeprazole 20 MG 1 capsule Orally Onc e a day Active Lisinopril 20 MG 1 tablet Orally Once a day Active hydroCHLOROthiazide 12.5 MG 1 capsule in the morning Orally Once a day Active Tamsulosin HCl 0.4 MG 1 capsule Orally O nce a day Active Colyte with Flavor Packs 240 GM As direc aury Orally Over the specified time. for 1 day(s) Active Social History Tobacco Use: Social History Observation Description Date Details (start date - stop date) Never Smoker NA - NA Tobacco Use/Smoking Question Answer Notes Patient is a nonsmoker Alcohol Screen Question Answer Notes Did you have a drink contain ing alcohol in the past year? Yes How often did you have a dri nk containing alcohol in the past year? Monthly or less (1 point) How many drinks did you have on a typical day when you were drinking in the past year? 1 or 2 drinks (0 point) How often did you have 6 or more drinks on one occasion in the past year? Never (0 point) Points 1 Interpretation Negative Problems Problem Type SNOMED Code ICD Code Onset Dates Problem Status W/U Status Risk Notes Problem [id number] Colon cancer screening (Z12.11) Active confirmed Problem [id number] Gastroesophageal reflux disease without esophagitis (K21.9) Active confirmed Plan Of Treatment Future Test Test Name Order Date COLONOSCOPY 10/31/2016 Insurance Providers Payer Name Payer Address Payer Phone Subscriber Number Group Number Insured Name Patient Relationship to Insured Coverage Start Date Coverage End Date MEDICARE OF [place] [address] [place] [address] [id number] MARY CABRAL Self - patient is the insured [facility] [address] [place] [phone] [id number] MARY CABRAL Self - patient is the insured Medical (General) History Medical History History ICD Code BPH with elevated PSA gastroesophageal reflux disease hypertension Surgical History Surgery Date(Month/Year) hernia repair x2 nasal surgerys x2
--- OUTSIDE RECORDS SUMMARY | 2024-12-30 10:35 | XMS_ITS | Clinical Summary ---
Author Organization [facility] Address [address] [place] [address] Phone Care Team Providers Care Helper Coordinator Name Role Phone Adin Macias MD Primary Care Provider Allergies Active Allergy Reactions Criticality Noted Date Comments Penicillins Rash Low 09/07/2024 As child Medications ELIQUIS 5 mg tablet Take 1 tablet by mouth 2 (two) times a day. 07/07/2024 Active atorvastatin (LIPITOR) 20 MG tablet Take 1 tablet by mouth every morning. 06/09/2024 Active finasteride (PROSCAR) 5 mg tablet Take 1 tablet by mouth every morning. 08/16/2024 Active lisinopril (PRINIVIL,ZESTR IL) 20 MG tablet Take 1 tablet by mouth every morning. 07/01/2024 Active omeprazole (PRILOSEC) 20 MG capsule Take 1 capsule by mouth every morning. 06/09/2024 Active Active Problems No known active problems Social History Tobacco Use Types Packs/Day Years Used Date Smoking Tobacco: Never Assessed Education Answer Date Recorded Are you interested in more education? Not on ivette e 09/07/2024 Are you concerned about learning? Not on file 09/07/2024 No 09/07/2024 No 09/07/2024 Digital Access Answer Date Recorded No 09/07/2024 No 09/07/2024 Reliable internet access at home? Not on file 09/07/2024 Device with a working camera? Not on file Sex and Gender Information Value Date Recorded Sex Assigned at Not on file Legal Sex Male 8:08 AM EDT Gender Identity Not on file Sexual Orientation Not on file Last Filed Vital Signs Vital Sign Reading Time Taken Comments Blood Pressure 160/100 09/07/2024 9:05 AM EDT Pulse 77 09/07/2024 9:05 AM EDT Temperature 36.7 C (98 F) 09/07/2024 9:05 AM EDT Respiratory Rate 16 09/07/2024 9:05 AM EDT Oxygen Saturation 98% 09/07/2024 9:05 AM EDT Inhaled Oxygen Concentration - - Weight - - Height - - Body Mass Index - - Plan of Treatment Health Maintenance Due Date Last Done Comments Adult Td,Tdap Booster 1947 CREATININE LEVEL 1947 LIPID PANEL 1947 POTASSIUM LEVEL 1947 DEPRESSION SCREENING 1959 SMOKING Hx and SMOKELESS TOBACCO SCREENING 1960 HEPATITIS C SCREENING 1965 PNEUMOCOCCAL VACCINES (50+ years) (1 of 1 - PCV) 1997 ZOSTER VACCINES (1 of 2) 1997 RSV VACCINE (1 - 1-dose 75+ series) 2022 COVID-19 VACCINE ( season) 2024 02/25/2024, 03/09/2023, 05/08/2021, Additional history exists HEPATITIS A VACCINES Aged Out No long er eligible based on patient's age to complete this topic HIB VACCINES Aged Out No longer eligi ble based on patient's age to complete this topic MENINGOCOCCAL VACCINES (ACWY) Aged Out No longer eligible based on patient's age to complete this topic MENINGOCOCCAL VACCINES (B) Aged Out N o longer eligible based on patient's age to complete this topic Medical Devices Not on file Insurance MEDICARE PART A & B Member Subscriber Plan / Payer (Ef fective 2016-Present) Name:Justin Porter Member ID:[id number] Relation to Subscriber:Self Name:Justin Porter Subscriber ID:[id number] Payer ID:[id number] Group ID:Not on file Type:Medicare Address: [facility] Patients Know Best [facility], [facility]. [address] [facility][1] [place] [address] [facility] MEDICARE SUPPLEMENT MEDICARE PART A & B MEDICARE SUPPLEMENT MEDICARE PART A & B Member Subscriber Plan / Payer ( fective 2016-) Name:Justin Porter Member ID:[id number] Relation to Subscriber:Self Name:Justin Porter Subscriber ID:[id number] Payer ID:[id number] Group ID:Not on file Type:Medicare Address: [employer] [address] [place] [id number] [facility] MEDICARE SUPPLEMENT MEDICARE PART A & B [facility] MEDICARE SUPPLEMENT MEDICARE PART A & B [facility] MEDICARE SUPPLEMENT MEDICARE PART A & B [facility] MEDICARE SUPPLEMENT Care Teams Helper Coordinator Relationship Specialty Start Date End Date Adin Macias MD [address] [place] [id number] PCP - General Internal Medicine 09/07/24 Additional Source Comments The information contained in this document represents components of the legal health record. It is not the complete legal health record.[facility]
[2024-12-30 11:55] LABS: PSA,Total (Free>4and<10) 6.79 ng/mL (0.00-4.00)
[2025-01-03 12:08] LABS: Free Prostate Spec Ag 1.0 ng/mL; Percent Free Prostate Spec Ag 15 % (calc) (>25)
== END 2024-12-30 09:58 | disposition home or self-care (01) ==
LOC: HO.LAB 09:57
PROVIDERS: PCP Internal Medicine; Visit Provider Urology
DX: C61 Malignant neoplasm of prostate (principal); Z19.1 Hormone sensitive malignancy status
CPT/HCPCS: 36415; 84153; 84154

== ENCOUNTER 2025-01-11 08:25 | Outpatient (AMB) | payer MEDICARE, OTHER, SELFPAY ==
--- NOTE | 2025-01-11 08:39 | A.OFFVIS_ITS ---
Intake Visit Reasons: 4M follow up/ PSA Total Intake Note: Patient is present for 4 mo follow up PSA done 12/30/24 : 6.79 Urology Medication:FINASTERIDE Antibiotic Allergy:PENICILLINS Blood Thinner:APIXABAN Acquisitions Analyst Required: No Accompanied by: Self / Same As Patient Allergies Penicillins Allergy (Mild, Verified 01/11/25 08:40) RASH HPI Comments Details: Justin is a pleasant male. He is a patient of Dr Macias. He is seen for the following urologic condition -lower urinary tract symptoms - urinary retention Continued PSA slight rise Repeat PSA in 4 months with prostate MRI 150 g ExoDX score 50 VANCE 2+ normal PSA 12/24 6.8 15% Prostate Cancer - Grade Group 3 - 09/24 Histologic type: Adenocarcinoma, acinar type Histologic grade: Kely score: 4+3=7 Grade group: 3 (WENDY 30%) Number cores positive: 1 Total number of cores: 12 Periprostatic fat inv.: Not identified Seminal vesicle inv.: Not identified Perineural inv.: Not identified LVI: Not identified Lower urinary tract symptoms Prior therapy includes terazosin 10 mg and finasteride 5 mg Finasteride every other day Laser prostatectomy May 2021 Variable PSA Range from 6.6-4.8 PSA 01/20 5.4 - 7.1 Free 30%, 07/24 2.7, 01/21 2.7, 04/23 3.1, 02/22 4.6, 07/26 4.3, 02/23 4.6 21%, 07/27 5.1 16% Current therapy finasteride monotherapy PFSH Medical History On anticoagulant therapy COVID-19 vaccine series completed Vertigo Sinusitis nasal MARÍA (obstructive sleep apnea) History of cardioversion Elevated PSA BPH with obstruction/lower urinary tract symptoms Sinus bradycardia Paroxysmal atrial flutter TIA (transient ischemic attack) Ascending aorta dilatation BPH (benign prostatic hyperplasia) GERD (gastroesophageal reflux disease) HTN (hypertension) Surgical History S/P myringotomy with insertion of tube Hx of nasal polypectomy History of left inguinal hernia repair H/O umbilical hernia repair H/O colonoscopy (~02/05/17) Family History Father Cardiovascular disease Mother No problems noted. Social History Housing: House Are you a primary primary care nurse to a significant other at home: No Do you presently have visiting nurse or other home services: No Alcohol intake: never Patient Tobacco Use Status: Never used Tobacco e-Cigarette/Vaping Use: Never Used service: No Current occupational status: retired Cognitive needs: No Hearing needs: No Vision needs: No Review of Systems Const Denies chills and Denies fever(s) Card Reports no additional complaints and Denies syncope Resp Denies cough GI Denies abdominal pain and Denies heartburn Reports as per HPI and Denies change in libido Neuro Denies syncope Psych Denies change in libido Endo Denies change in libido Physical Exam Const General: cooperative, healthy appearing, comfortable and no acute distress Orientation/consciousness: patient oriented x3 HEENT Face and sinus: Yes normal facial exam Mouth: moist mucous membranes Neck Neck: Yes normal visual inspection, Yes full ROM and Yes trachea midline Chest Chest palpation & inspection: normal inspection of the chest Resp Effort & Inspection: normal respiratory effort, able to speak in complete sentences and no respiratory distress GI Inspection: Yes normal to inspection Back/Spine/Pelvis Cervical Spine: normal cervical lordosis Thoracic/Lumbar Spine: thoracic and lumbar spine normal to inspection Skin General skin exam: no rashes or lesions noted Neuro General: patient oriented x3, gait normal, tone normal and moves all extremities Extrem General: Yes normal to inspection and Yes capillary refill normal Assessment & Plan Assessment & Plan (1) Hormone sensitive prostate cancer: Code(s): C61 - Malignant neoplasm of prostate; Z19.1 - Hormone sensitive malignancy status Category: Medical Plan Repeat imaging in 4 months Orders: Orders PSA,Total (Free>4and<10) 4 Months C61 - Malignant neoplasm of prostate, Z19.1 - Hormone sensitive malignancy status MR Prostate wo/w con 4 Months R97.20 - Elevated prostate specific antigen [PSA], C61 - Malignant neoplasm of prostate, Z19.1 - Hormone sensitive malignancy status Medications: New diazepam Take medication after arrival at office 2 mg PO BID PRN 2 tabs 0RF anxiety 1 day C61 - Malignant neoplasm of prostate, Z19.1 - Hormone sensitive malignancy status, R45.89 - Other symptoms and signs involving emotional state Refilled finasteride 5 mg PO DAILY 90 tabs 3RF 90 days N40.1 - Benign prostatic hyperplasia with lower urinary tract symptoms, N13.8 - Other obstructive and reflux uropathy, R33.9 - Retention of urine, unspecified Patient Instructions: This note is constructed using voice recognition software. While every effort has been made to ensure accuracy flea market seller errors may have been included. Imaging studies, laboratory and physical exam results were discussed and reviewed in detail. No major barriers to patient understanding were identified. An opportunity to ask questions regarding the treatment plan was provided. All questions were answered. The patient expressed understanding and agreement with the above treatment plan. The patient is aware they should contact our office by phone for worsening of their current condition or the appearance of new urologic symptoms. Compliance is encouraged with any medications and followup testing that is ordered. It is a privilege to participate in the urologic care of your patient. If you have any questions or concerns regarding treatment for the above conditions, or other urologic issues, please do not hesitate to contact me. The office telephone contact is [phone]. Sincerely, Dr Jamal Martinez MD, [facility] - Urology Compassionate Specialist Care for the Genitourinary System Coding Level of Care Code Est Pt Level 3 (46340) Complex EM visit Add On G2211 Diagnoses Hormone sensitive prostate cancer C61; Z19.1
--- OUTSIDE RECORDS SUMMARY | 2025-01-11 08:39 | XMS_ITS | Clinical Summary ---
Author Organization [facility] Address [address] [address] Phone Care Team Providers Care Frame Table Operator Helper Name Role Phone Adin Macias MD Primary [...] file Insurance MEDICARE PART A & B [facility] MEDICARE SUPPLEMENT MEDICARE PART A & B MEDICARE SUPPLEMENT MEDICARE PART A & B Member Subscriber Plan / Payer ( fective 2016-) Name:Justin Porter Member ID:[id number] Relation to Subscriber:Self Name:Justin Porter Subscriber ID:[id number] Payer ID:[id number] Group ID:Not on file Type:Medicare Address: [employer] [address] [place] [id number] [facility] MEDICARE SUPPLEMENT MEDICARE PART A & B [facility] MEDICARE SUPPLEMENT MEDICARE PART A & B [facility] MEDICARE SUPPLEMENT MEDICARE PART A & B [facility] MEDICARE SUPPLEMENT Care Teams Frame Table Operator Helper Relationship Specialty Start Date End Date Adin Macias MD [address] [place] [id number] PCP - General Internal Medicine 09/07/24 Additional Source Comments The information contained in this document represents components of the legal health record. It is not the complete legal health record.[facility]
--- OUTSIDE RECORDS SUMMARY | 2025-01-11 08:39 | XMS_ITS | Patient Health Record ---
Author Organization [facility] Address [address] [place] [address] Care Team Providers Care Jewel Hole Driller Name Role Phone Gilberto (RETIRED) Adin GUTIÉRREZ [...] Problem Status W/U Status Risk Notes Problem [id number] Colon cancer screening (Z12.11) Active confirmed Problem 794871332 Gastroesophageal reflux disease without esophagitis (K21.9) Active confirmed Plan Of Treatment Future Test Test Name Order Date COLONOSCOPY 10/31/2016 Insurance Providers Payer Name Payer Address Payer Phone Subscriber Number Group Number Insured Name Patient Relationship to Insured Coverage Start Date Coverage End Date MEDICARE OF [place] [address] [place] [address] [id number] MARY CABRAL Self - patient is the insured [facility] [address] [place] [address] [phone] [id number] MARY CABRAL Self - patient is the insured Medical (General) History Medical History History ICD Code BPH with elevated PSA gastroesophageal reflux disease hypertension Surgical History Surgery Date(Month/Year) hernia repair x2 nasal surgerys x2
== END 2025-01-11 09:11 | disposition home or self-care (01) ==
LOC: HO.HUSH 08:25
PROVIDERS: PCP Internal Medicine; Visit Provider Urology
DX: C61 Malignant neoplasm of prostate (principal); Z19.1 Hormone sensitive malignancy status
CPT/HCPCS: 99213; G2211

== ENCOUNTER → 2025-01-11 08:25 | Outpatient (BNVA) | payer MEDICARE, OTHER, SELFPAY | PROVIDERS: PCP Internal Medicine; Visit Provider Urology | DX: C61 Malignant neoplasm of prostate (principal); Z19.1 Hormone sensitive malignancy status | CPT/HCPCS: 99212 ==

== ENCOUNTER 2025-03-22 08:58 | Outpatient (AMB) | payer MEDICARE, OTHER, SELFPAY ==
--- NOTE | 2025-03-22 09:01 | A.OFFVIS_ITS ---
Vital Signs 03/22/25 09:02 Height 5 ft 11 in Weight 233 lb 3.985 oz BMI 32.5 BP 128/64 Blood Pressure Location Lt brachial Position Sitting Pulse 75 Pulse Source Pulse Oximeter Intake Visit Reasons: 6 mth f/up Epitaxial Reactor Technician Required: No Accompanied by: Self / Same As Patient Allergies Penicillins Allergy (Mild, Verified 03/22/25 09:04) RASH Medication List - Last Reconciled 03/22/25 by Mark Knight MD apixaban (Eliquis) 5 mg PO BID atorvastatin 20 mg PO DAILY finasteride 5 mg PO DAILY 90 days lisinopril 20 mg PO DAILY omeprazole 20 mg PO DAILY HPI Comments Details: Justin returns for follow-up regarding atrial flutter. To recall, in the past, he was admitted with symptoms of right-sided weakness and possible TIA. At that time, he was noted to have atrial flutter. He was then commenced on anticoagulation and low-dose beta-blockers. He was doing okay, but continued to feel some shortness of breath. Then underwent cardioversion. Due to significant baseline bradycardia, he was not on any medications for rate or rhythm control. Then, went back into atrial flutter with controlled rate. He has remained in controlled flutter since then. Overall, he states he feels good. No new concerns. No angina or shortness of breath or palpitations or syncopal episodes extra. [facility] Medical History On anticoagulant therapy COVID-19 vaccine series completed Vertigo Sinusitis nasal MARÍA (obstructive sleep apnea) History of cardioversion Elevated PSA BPH with obstruction/lower urinary tract symptoms Sinus bradycardia Paroxysmal atrial flutter TIA (transient ischemic attack) Ascending aorta dilatation BPH (benign prostatic hyperplasia) GERD (gastroesophageal reflux disease) HTN (hypertension) Surgical History S/P myringotomy with insertion of tube Hx of nasal polypectomy History of left inguinal hernia repair H/O umbilical hernia repair H/O colonoscopy (~02/05/17) Family History Father Cardiovascular disease Mother No problems noted. Social History Housing: House Are you a primary healthcare administrator to a significant other at home: No Do you presently have visiting nurse or other home services: No Alcohol intake: never Patient Tobacco Use Status: Never used Tobacco e-Cigarette/Vaping Use: Never Used service: No Current occupational status: retired Cognitive needs: No Hearing needs: No Vision needs: No Review of Systems Const Denies daytime sleepiness, Denies difficulty sleeping, Denies snoring, Denies stops breathing during sleep and Denies weakness Card Denies chest pain, Denies rapid heart rate, Denies irregular heart rhythm, Denies claudication, Denies leg edema, Denies lightheadedness, Denies palpitations, Denies dyspnea, Denies dyspnea on exertion, Denies orthopnea, Denies paroxysmal nocturnal dyspnea and Denies slow heart rate Resp Denies cough, Denies dyspnea, Denies dyspnea on exertion and Denies snoring GI Reports no additional complaints, Denies hematochezia, Denies change in stool character and Denies dyspepsia Musc Denies abnormal gait, Denies muscle weakness and Denies numbness Neuro Denies abnormal gait, Denies numbness and Denies weakness Endo Denies palpitations Physical Exam Vital Signs: Last Vital Signs Pulse 75 03/22/25 09:02 BP 128/64 03/22/25 09:02 BMI result Body Mass Index 32.5 Const General: comfortable and no acute distress Orientation/consciousness: patient oriented x3 HEENT Other: Unremarkable Head: Yes normal to inspection Neck Neck: Yes normal visual inspection Chest Chest palpation & inspection: normal inspection of the chest Resp Auscultation: clear to auscultation bilaterally Cardio Palpation: normal PMI Heart sounds: S1 normal heart sound present, S2 normal heart sound present, no gallops, no murmurs and no rubs GI Palpation (GI): Soft to palpation Back/Spine/Pelvis Other: unremarkable Skin General skin exam: no rashes or lesions noted Neuro General: patient oriented x3 Extrem General: Yes normal to inspection Psych Mental Status: mental status grossly normal Assessment & Plan Assessment & Plan (1) Chronic atrial flutter: Code(s): I48.92 - Unspecified atrial flutter Category: Medical Plan: Rate controlled because of underlying conduction system disease. Has been cardioverted in the past but could not take medications due to significant sinus bradycardia. Continue anticoagulation without changes. Per last Holter, underlying rhythm is atrial flutter with an average rate of 70/Min. (2) HTN (hypertension): Code(s): I10 - Essential (primary) hypertension Category: Medical Plan: Stable. No changes. (3) TIA (transient ischemic attack): Code(s): G45.9 - Transient cerebral ischemic attack, unspecified Category: Medical Plan: No residual concerns. Continue statins. LDL cholesterol in the 50s and 60s. (4) Ascending aorta enlargement: Code(s): I77.89 - Other specified disorders of arteries and arterioles Category: Medical Plan: In the last echocardiogram, sinus of Valsalva size 4.45 cm. Ascending aortic size 4.2 cm. Borderline dilatation but considering his body surface area not significantly enlarged. Rechecked before next visit. (5) Obstructive sleep apnea: Code(s): G47.33 - Obstructive sleep apnea (adult) (pediatric) Category: Medical Plan: Has mild obstructive sleep apnea. However, not interested in any CPAP. If he can lose weight that will help, but his weight has actually gone up. (6) Morbid obesity: Code(s): E66.01 - Morbid (severe) obesity due to excess calories Category: Medical Plan: Weight loss has been discussed several times including today. Hopefully, he can work on that. Orders: Orders CA echo transthoracic complete 6 Months I77.89 - Other specified disorders of arteries and arterioles Coding Level of Care Code Est Pt Level 4 (37845) Complex EM visit Add On G2211 Diagnoses Chronic atrial flutter I48.92 HTN (hypertension) I10 TIA (transient ischemic attack) G45.9 Ascending aorta enlargement I77.89 Obstructive sleep apnea G47.33 Morbid obesity E66.01
[2025-03-22 09:02] VITALS: BP 128/64; PULSE 75; BMI 32.5
--- OUTSIDE RECORDS SUMMARY | 2025-03-22 09:37 | XMS_ITS | Patient Health Record ---
Author Organization [facility] Address [address] [place] [address] Care Team Providers Care Soft Top Installer Name Role Phone Gilberto (RETIRED) Adin GUTIÉRREZ Primary Care Provide Sebastián Herrera Jr Unavailable [phone] Allergies Allergen (clinical drug ingredient) Drug/Non Drug [...] As direc aury Orally Over the specified time.; Duration: 1 day(s) Active Social History Tobacco Use: [...] Problem Status W/U Status Risk Notes Problem Colon cancer screening (565149398) Colon cancer screening (Z12.11) Active confirmed Problem Gastroesophageal reflux disease without esophagitis (988740569) Gastroesophageal reflux disease without esophagitis (K21.9) Active confirmed Plan Of Treatment Future Test Test Name Order Date COLONOSCOPY 10/31/2016 Insurance Providers Payer Name Payer Address Payer Phone Subscriber Number Group Number Insured Name Patient Relationship to Insured Coverage Start Date Coverage End Date MEDICARE OF [place] [address] [place] [address] [id number] MARY CABRAL Self - patient is the insured [facility] [address] [place] [address] [id number] MARY CABRAL Self - patient is the insured Medical (General) History Medical History History ICD Code BPH with elevated PSA gastroesophageal reflux disease hypertension Surgical History Surgery Date(Month/Year) hernia repair x2 nasal surgerys x2
--- OUTSIDE RECORDS SUMMARY | 2025-03-22 09:38 | XMS_ITS | Clinical Summary ---
Author Organization [facility] Address [address] [place] [id number] Phone Care Team Providers Care Cage Fighter Name Role Phone Adin Macias MD Primary [...] VACCINE (1 - 1-dose 75+ series) 2022 INFLUENZA VACCINE (#1) 2024 COVID-19 VACCINE ( season) 2025 02/25/2024, 03/09/2023, 05/08/2021, Additional history exists HEPATITIS [...] file Insurance MEDICARE PART A & B [facility] MEDICARE SUPPLEMENT MEDICARE PART A & B [facility] MEDICARE SUPPLEMENT MEDICARE PART A & B [facility] MEDIC[facility] SUPPLEMENT MEDICARE PART A & B [facility] MEDICARE SUPPLEMENT MEDICARE PART A & B Member Subscriber Plan / Payer ( fective 2016-Present) Name:PorterJustin Member ID:[id number] Relation to Subscriber:Self Name:Charlotte Justin Subscriber ID:[id number] Payer ID:[id number] Group ID:Not on file Type:Medicare Address: [employer] [address] [place] [phone] [facility] MEDICARE SUPPLEMENT MEDICARE PART A & B Member Subscriber Plan / Payer ( fective 2016-Present) Name:Justin Porter Member ID:[id number] Relation to Subscriber:Self Name:Justin Porter Subscriber ID:[id number] Payer ID:[id number] Group ID:Not on file Type:Medicare Address: [employer] [address] [place] [id number] [facility] MEDICARE SUPPLEMENT Care Teams Cage Fighter Relationship Specialty Start Date End Date Adin Macias MD [address] [place] [address] [address] PCP - General Internal Medicine 09/07/24 Additional Source Comments The information contained in this document represents components of the legal health record. It is not the complete legal health record.[facility]
== END 2025-03-22 09:17 | disposition home or self-care (01) ==
LOC: HO.HCS 08:59
PROVIDERS: PCP Internal Medicine; Visit Provider Internal Medicine
DX: I48.92 Unspecified atrial flutter (principal); I10 Essential (primary) hypertension; G45.9 Transient cerebral ischemic attack, unspecified; I77.89 Other specified disorders of arteries and arterioles; G47.33 Obstructive sleep apnea (adult) (pediatric); E66.01 Morbid (severe) obesity due to excess calories
CPT/HCPCS: 99214; G2211

== ENCOUNTER → 2025-03-22 08:58 | Outpatient (BNVA) | payer MEDICARE, OTHER, SELFPAY | PROVIDERS: PCP Internal Medicine; Visit Provider Internal Medicine | DX: I48.92 Unspecified atrial flutter (principal); I10 Essential (primary) hypertension; I77.89 Other specified disorders of arteries and arterioles; G45.9 Transient cerebral ischemic attack, unspecified; E66.01 Morbid (severe) obesity due to excess calories; G47.33 Obstructive sleep apnea (adult) (pediatric); Z68.32 Body mass index [BMI] 32.0-32.9, adult | CPT/HCPCS: 99212 ==

== ENCOUNTER 2025-05-02 11:50 | Outpatient (REF) | payer MEDICARE, OTHER, SELFPAY ==
[2025-05-02 13:13] LABS: PSA,Total (Free>4and<10) 4.83 ng/mL (0.00-4.00)
--- OUTSIDE RECORDS SUMMARY | 2025-05-02 15:38 | XMS_ITS | Clinical Summary ---
Author Organization 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 Stabilizer Operator Name Role Phone Adin Macias MD Primary [...] file Insurance MEDICARE PART A & B [facility] MEDICARE SUPPLEMENT MEDICARE PART A & B [facility] MEDICARE SUPPLEMENT MEDICARE PART A & B [facility] MEDICARE SUPPLEMENT MEDICARE PART A & B [facility] MEDICARE SUPPLEMENT MEDICARE PART A & B Member Subscriber Plan / Payer ( fective 2016-Present) Name:PorterJustin Member ID:[id number] Relation to Subscriber:Self Name:Charlotte Justin Subscriber ID:[id number] Payer ID:[id number] Group ID:Not on file Type:Medicare Address: [employer] [address] [place] [phone] [facility] MEDICARE SUPPLEMENT MEDICARE PART A & B Member Subscriber Plan / Payer ( fective 2016-Present) Name:Justin Porter Member ID:[id number] Relation to Subscriber:Self Name:Justin Porter Subscriber ID:[id number] Payer ID:[id number] Group ID:Not on file Type:Medicare Address: [employer] [address] [place] [id number] [facility] MEDICARE SUPPLEMENT Care Teams Rotary Soil Stabilizer Operator Relationship Specialty Start Date End Date Adin Macias MD [address] [place] [address] [address] PCP - General Internal Medicine 09/07/24 Additional Source Comments The information contained in this document represents components of the legal health record. It is not the complete legal health record.[facility]
[2025-05-04 12:13] LABS: Free Prostate Spec Ag 0.9 ng/mL; Percent Free Prostate Spec Ag 14 % (calc) (>25)
== END 2025-05-02 11:51 | disposition home or self-care (01) ==
LOC: HO.LAB 11:50
PROVIDERS: PCP Internal Medicine; Visit Provider Urology
DX: C61 Malignant neoplasm of prostate (principal); Z19.1 Hormone sensitive malignancy status; Z12.5 Encounter for screening for malignant neoplasm of prostate
CPT/HCPCS: 36415; 84153; 84154

== ENCOUNTER 2025-05-10 10:53 | Outpatient (AMB) | payer MEDICARE, OTHER, SELFPAY ==
--- NOTE | 2025-05-10 11:08 | MHC.PC.OV ---
Vital Signs 05/10/25 11:10 05/10/25 11:17 Height 5 ft 11 in Weight 235 lb BMI 32.8 BP 171/83 H 140/80 H Blood Pressure Location Rt brachial Lt brachial Position Sitting Sitting Respiration 14 Pulse 80 Pulse Source Pulse Oximeter Temp 98.2 F Temp Source Temporal Artery Scan Pulse Oximetry (%) 98 Oxygen Delivery Method Room Air Intake Visit Reasons: Establish Care/ Dr. Macias Financial Services Intern Required: No Allergies Penicillins Allergy (Mild, Verified 05/10/25 11:10) RASH Tobacco use date assessed: 11/03/24 Dental Screening Dental Screen Date: 11/03/24 [facility] Medical History On anticoagulant therapy COVID-19 vaccine series completed Vertigo Sinusitis nasal MARÍA (obstructive sleep apnea) History of cardioversion Elevated PSA BPH with obstruction/lower urinary tract symptoms Sinus bradycardia Paroxysmal atrial flutter TIA (transient ischemic attack) Ascending aorta dilatation BPH (benign prostatic hyperplasia) GERD (gastroesophageal reflux disease) HTN (hypertension) Surgical History S/P myringotomy with insertion of tube Hx of nasal polypectomy History of left inguinal hernia repair H/O umbilical hernia repair H/O colonoscopy (~02/05/17) Family History Father Cardiovascular disease Mother No problems noted. Social History Housing: House Are you a primary respiratory care technician to a significant other at home: No Do you presently have visiting nurse or other home services: No Alcohol intake: never Patient Tobacco Use Status: Never used Tobacco e-Cigarette/Vaping Use: Never Used service: No Current occupational status: retired Cognitive needs: No Hearing needs: No Vision needs: No Questionnaire PHQ-9 Over the last 2 weeks, how often have you been bothered by any of the following problems? 1. Little interest or pleasure in doing things: not at all 2. Feeling down, depressed, or hopeless: not at all 3. Trouble falling or staying asleep, or sleeping too much: not at all 4. Feeling tired or having little energy: not at all 5. Poor appetite or overeating: not at all 6. Feeling bad about yourself - or that you are a failure or have let yourself or your family down: not at all 7. Trouble concentrating on things, such as reading the newspaper or watching television: not at all 8. Moving or speaking so slowly that other people could have noticed. Or the opposite - being so fidgety or restless that you have been moving around a lot more than usual: not at all 9. Thoughts that you would be better off or of hurting yourself in some way: not at all Total score: 0 Depression Screening Interpretation: Negative Depression Screening Done: Yes Source: Developed by Drs. Alexsander Brown, Mame Jurado, Db Colin and colleagues, with an educational michelle from [facility]. Thrive Questionnaire Date Thrive assessed: 11/03/24 I am a: Patient Within the past 12 months, did the food you bought not last and you didn't have the money to get more?: Never true Within the past 12 months, did you worry whether your food would run out before you got money to buy more?: Never true Do you have trouble paying for medicines?: No Do you have trouble getting transportation to medical appointments?: No Do you have trouble paying your heating and electricity bill?: No Do you have trouble taking care of your child, family member or friend?: No Do you have trouble with day-to-day activities such as bathing, preparing meals, shopping, managing finances, etc.?: No Are you currently unemployed and looking for a job?: No Are you interested in more education?: No Currently or been in a relationship where the following occur: No concerns reported THRIVE Score: 0 AUDIT C Alcohol Use Questionnaire (AUDIT-C) 1. How often do you have a drink containing alcohol?: Never 3. How often do you have six or more drinks on one occasion?: Never Total Score: 0 LUIZA-7 AMB Questionnaire LUIZA-7 Date LUIZA - 7 assessed: 11/03/24 Feeling nervous, anxious, or on edge: 0 = Not at all Not being able to stop or control worryin = Not at all Worrying too much about different things: 0 = Not at all Trouble relaxin = Not at all Being so restless that it is hard to sit still: 0 = Not at all Becoming easily annoyed or irritable: 0 = Not at all Feeling afraid as if something awful might happen: 0 = Not at all Total LUIZA-7 score (0-4 normal; 5-9 mild; 10-14 moderate; 15-21 severe): 0 Source: Developed by Drs. Alexsander Brown, Mame Jurado, Db Colin and colleagues, with an educational michelle from [facility]. Physical exam (Primary Care) Tobacco/Smoking Status: Tobacco use Status Tobacco use date assessed 11/03/24 11/03/24 09:55 Patient Tobacco Use Status Never used Tobacco 11/03/24 09:55 e-Cigarette/Vaping Use Never Used 11/03/24 09:55 Depression Screening Interpretation: Negative Thrive Assessment: Date of Thrive Assessment Date Thrive assessed 11/03/24 11/03/24 09:55 Currently or been in a relationship where the following occur: No concerns reported Office Procedures Flu Questionnaire Does the patient have a severe egg allergy?: No Does the patient have severe life threatening allergies?: No Does the patient have a fever or illness today?: No Has the patient ever had Guillain-Lytton Syndrome?: No Has the patient ever had any past reaction to a flu shot?: No Immunizations Fluarix [id number] (PF) 45 mcg (15 mcg x 3)/0.5 mL IM syringe Performing Provider: Prashant Bhatti MD [facility] [place] Documented (not given) by: KARLO Mosqueda on 05/10/25 11:16 Reason Not Given: Patient Refused Coding Assessment & Plan Assessment & Plan Orders: Orders Influenza [id number] Immunization Today Z23 - Encounter for immunization
[2025-05-10 11:10] VITALS: BP 171/83; PULSE 80; RESP 14; TEMP 36.8; O2SAT 98; BMI 32.8
[2025-05-10 11:17] VITALS: BP 140/80
== END 2025-05-10 11:43 | disposition home or self-care (01) ==
LOC: HO.HMCSH 10:53
PROVIDERS: PCP Internal Medicine; Visit Provider Internal Medicine
DX: Z23 Encounter for immunization (principal)

== ENCOUNTER → 2025-05-10 10:53 | Outpatient (BNVA) | payer MEDICARE, OTHER, SELFPAY | PROVIDERS: PCP Internal Medicine; Visit Provider Internal Medicine | DX: I10 Essential (primary) hypertension (principal); I48.92 Unspecified atrial flutter; J30.9 Allergic rhinitis, unspecified; Z13.31 Encounter for screening for depression | CPT/HCPCS: 90471; 96127; 99212 ==

== ENCOUNTER 2025-05-12 09:28 | Outpatient (REF) | payer MEDICARE, OTHER, SELFPAY ==
[2025-05-12 10:16] LABS: Hematocrit 45.4 % (42.0-52.0); Hemoglobin 14.8 g/dl (14.0-18.0); Mean Corpuscular HGB Conc 32.6 g/dl (31.0-36.0); Mean Corpuscular Hemoglobin 31.5 pg (27.0-33.0); Mean Corpuscular Volume 96.6 fL (80.0-98.0); NRBC Abs Auto 0.000 X10*3/uL (0.0-0.012); NRBC Pct Auto 0.0 /100WBC (0.0-0.2); Platelet Count 180 X10*3/uL (160-400); Red Blood Count 4.70 X10*6/uL (4.60-5.80); White Blood Count 4.7 X10*3/uL (4.8-10.8)
[2025-05-12 10:27] LABS: Appearance Urine Cloudy; Glucose Urine UA Negative (Negative); PH 5.0 (5.0-9.0); Specific Gravity - Urine 1.025 (1.005-1.025); UMIC TRIGGER UA YES
[2025-05-12 10:40] LABS: Alanine Aminotransferase 19 U/L (0-40); Albumin Level 4.4 g/dL (3.5-5.0); Alkaline Phosphatase 111 U/L (39-117); Anion Gap 10 (12-20); Aspartate Amino Transferase 23 U/L (5-37); Blood Urea Nitrogen 18 mg/dL (9-16); Calcium 9.5 mg/dL (8.4-10.2); Carbon Dioxide 27 mmol/L (22-29); Chloride 110 mmol/L (96-108); Cholesterol 116 mg/dL (<200); Estimated Glomerular Filt Rate > 60; HDL Cholesterol 49 mg/dL (>40); Potassium 4.5 mmol/L (3.3-5.1); Sodium 142 mmol/L (135-145); Total Protein 7.1 g/dL (6.5-8.0); Triglycerides 73 mg/dL (<150)
[2025-05-12 10:57] LABS: Thyroid Stimulating Hormone 1.56 uIU/mL (0.32-4.0)
== END 2025-05-12 09:29 ==
LOC: HO.LAB 09:28
PROVIDERS: PCP Internal Medicine; Visit Provider Internal Medicine
DX: Z12.5 Encounter for screening for malignant neoplasm of prostate (principal); I10 Essential (primary) hypertension; I48.92 Unspecified atrial flutter
CPT/HCPCS: 36415; 80048; 80061; 80076; 81001; 84153; 84443; 85027

== ENCOUNTER 2025-05-13 13:02 | Outpatient (AMB) | payer MEDICARE, OTHER, SELFPAY ==
--- NOTE | 2025-05-13 13:19 | MHC.OFFVIS ---
Intake Visit Reasons: PSA/PVR(set) Intake Note: Reason for Visit: PSA/Prostate MRI/PVR Follow Up Urology Meds: Finasteride Blood Thinners: Eliquis Labs: Total PSA: 4.83 Free PSA: %Free PSA: (05/02/2025) Imaging: Prostate MRI- 05/09/2025 Last PVR: None PVR: 0ml Allergies Penicillins Allergy (Mild, Verified 05/10/25 11:10) RASH HPI Comments Details: Justin is a pleasant male. He is a patient of Dr Macias. 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, acinar type Histologic grade: Kely score: 4+3=7 Grade group: 3 (WENDY 30%) Number cores positive: 1 Total number of cores: 12 Periprostatic fat inv.: Not identified Seminal vesicle inv.: Not identified Perineural inv.: Not identified LVI: Not identified Lower urinary tract symptoms Prior therapy includes terazosin 10 mg and finasteride 5 mg Finasteride every other day Laser prostatectomy May 2021 Variable PSA Range from 6.6-4.8 PSA 01/20 5.4 - 7.1 Free 30%, 07/24 2.7, 01/21 2.7, 04/23 3.1, 02/22 4.6, 07/26 4.3, 02/23 4.6 21%, 07/27 5.1 16% Current therapy finasteride monotherapy PFSH Medical History On anticoagulant therapy COVID-19 vaccine series completed Vertigo Sinusitis nasal MARÍA (obstructive sleep apnea) History of cardioversion Elevated PSA BPH with obstruction/lower urinary tract symptoms Sinus bradycardia Paroxysmal atrial flutter TIA (transient ischemic attack) Ascending aorta dilatation BPH (benign prostatic hyperplasia) GERD (gastroesophageal reflux disease) HTN (hypertension) Surgical History S/P myringotomy with insertion of tube Hx of nasal polypectomy History of left inguinal hernia repair H/O umbilical hernia repair H/O colonoscopy (~02/05/17) Family History Father Cardiovascular disease Mother No problems noted. Social History Housing: House Are you a primary intensive care ambulance paramedic to a significant other at home: No Do you presently have visiting nurse or other home services: No Alcohol intake: never Patient Tobacco Use Status: Never used Tobacco e-Cigarette/Vaping Use: Never Used service: No Current occupational status: retired Cognitive needs: No Hearing needs: No Vision needs: No Review of Systems Const Denies chills and Denies fever(s) Card Reports no additional complaints and Denies syncope Resp Denies cough GI Denies abdominal pain and Denies heartburn Reports as per HPI and Denies change in libido Neuro Denies syncope Psych Denies change in libido Endo Denies change in libido Physical Exam Const General: cooperative, healthy appearing, comfortable and no acute distress Orientation/consciousness: patient oriented x3 HEENT Face and sinus: Yes normal facial exam Mouth: moist mucous membranes Neck Neck: Yes normal visual inspection, Yes full ROM and Yes trachea midline Chest Chest palpation & inspection: normal inspection of the chest Resp Effort & Inspection: normal respiratory effort, able to speak in complete sentences and no respiratory distress GI Inspection: Yes normal to inspection Back/Spine/Pelvis Cervical Spine: normal cervical lordosis Thoracic/Lumbar Spine: thoracic and lumbar spine normal to inspection Skin General skin exam: no rashes or lesions noted Neuro General: patient oriented x3, gait normal, tone normal and moves all extremities Extrem General: Yes normal to inspection and Yes capillary refill normal Office Procedures Post Void Residual Post Residual Void Post Void Residual (PVR): 0 41616-Msqi Void Residual by ultrasound Assessment & Plan Assessment & Plan (1) BPH with obstruction/lower urinary tract symptoms: Code(s): N40.1 - Benign prostatic hyperplasia with lower urinary tract symptoms; N13.8 - Other obstructive and reflux uropathy Category: Medical (2) Hormone sensitive prostate cancer: Code(s): C61 - Malignant neoplasm of prostate; Z19.1 - Hormone sensitive malignancy status Category: Medical Plan Four-month follow-up imaging Orders: Orders AMB Post Void Residual by ultrasound Today N13.8 - Other obstructive and reflux uropathy, N40.1 - Benign prostatic hyperplasia with lower urinary tract symptoms Patient Instructions: This note is constructed using voice recognition software. While every effort has been made to ensure accuracy rda errors may have been included. Imaging studies, laboratory and physical exam results were discussed and reviewed in detail. No major barriers to patient understanding were identified. An opportunity to ask questions regarding the treatment plan was provided. All questions were answered. The patient expressed understanding and agreement with the above treatment plan. The patient is aware they should contact our office by phone for worsening of their current condition or the appearance of new urologic symptoms. Compliance is encouraged with any medications and followup testing that is ordered. It is a privilege to participate in the urologic care of your patient. If you have any questions or concerns regarding treatment for the above conditions, or other urologic issues, please do not hesitate to contact me. The office telephone contact is [phone]. Sincerely, Dr Jamal Martinez MD, [facility] - Urology Compassionate Specialist Care for the Genitourinary System Coding Level of Care Code Est Pt Level 3 (43371) Add On Problem Visit Only Diagnoses BPH with obstruction/lower urinary tract symptoms N40.1; N13.8 Hormone sensitive prostate cancer C61; Z19.1 CPT Codes Post Residual Void - PVR CPT Code: 74304-Geri Void Residual by ultrasound ([id number])
--- OUTSIDE RECORDS SUMMARY | 2025-05-13 18:39 | XMS_ITS | Patient Health Record ---
Author Organization [facility] Address [address] [place] [address] Care Team Providers Care Divinity Teacher Name Role Phone Gilberto (RETIRED) Adin GUTIÉRREZ Primary Care Provide Sebastián Herrera Jr Unavailable Allergies Allergen (clinical drug ingredient) Drug/Non Drug Allergy documented on EMR Reaction Allergy Type Onset Date Status Penicillin Unknown Drug Allergy Active Reason For Referral No Information Medications Medication SIG (Take, Route, Frequency, Duration) Notes Start Date End Date Status Omeprazole 20 MG Capsule Delayed Release 1 capsule Orally Once a day Active Lisinopril 20 MG Tablet 1 tablet Orally Once a day Active hydroCHLOROthiazide 12.5 MG Capsule 1 capsule in the morning Orally Once a day Active Tamsulosin HCl 0.4 MG Capsul e Extended Release 1 capsule Orally Once a day Active Colyte with Flavor Packs 240 GM Solution Reconstituted As directed Orally Over the specified time.; Duration: 1 day(s) Active Social History Tobacco Use: Social History Observation Description Date Details (start date - stop date) Never Smoker NA - NA Social History Drugs/Alcohol: Social Info Question Answer Notes Alcohol Screen Did you have a drink containing alcohol in the past year? Yes How often did you have a drink containing alcohol in the past year? Monthly or less (1 point) How many drinks did you have on a typical day when you were drinking in the past year? 1 or 2 drinks (0 point) How often did you have 6 or more drinks on one occasion in the past year? Never (0 point) Points 1 Interpretation Negative Tobacco Use: Social Info Question Answer Notes Tobacco Use/Smoking Patient is a nonsmoker Additional Details Category Social Info Options Details Miscellaneous: Marital status: Occupation: retired Problems Problem Type SNOMED Code ICD Code Onset Dates Problem Status W/U Status Risk Notes Problem Colon cancer screening (641255987) Colon cancer screening (Z12.11) Active confirmed Problem Gastroesophageal reflux disease without esophagitis (504960125) Gastroesophageal reflux disease without esophagitis (K21.9) Active confirmed Plan Of Treatment Future Test Test Name Order Date COLONOSCOPY 10/31/2016 Insurance Providers Payer Name Payer Address Payer Phone Subscriber Number Group Number Insured Name Patient Relationship to Insured Coverage Start Date Coverage End Date MEDICARE OF [place] [address] [place] [address] [phone] [id number] MARY CABRAL Self - patient is the insured [facility] [address] [place] [phone] [id number] MARY CABRAL Self - patient is the insured Medical (General) History Medical History History ICD Code BPH with elevated PSA gastroesophageal reflux disease hypertension Surgical History Surgery Date(Month/Year) hernia repair x2 nasal surgerys x2
== END 2025-05-13 13:48 | disposition home or self-care (01) ==
LOC: HO.HUSH 13:03
PROVIDERS: PCP Internal Medicine; Visit Provider Urology
DX: N40.1 Benign prostatic hyperplasia with lower urinary tract symptoms (principal); N13.8 Other obstructive and reflux uropathy; C61 Malignant neoplasm of prostate; Z19.1 Hormone sensitive malignancy status
CPT/HCPCS: 99213; G2211

== ENCOUNTER → 2025-05-13 13:02 | Outpatient (BNVA) | payer MEDICARE, OTHER, SELFPAY | PROVIDERS: PCP Internal Medicine; Visit Provider Urology | DX: N40.1 Benign prostatic hyperplasia with lower urinary tract symptoms (principal); N13.8 Other obstructive and reflux uropathy; C61 Malignant neoplasm of prostate; Z19.1 Hormone sensitive malignancy status | CPT/HCPCS: 51798; 99212 ==